=== PATIENT | female | born 1955 | race Caucasian/White ===

== ENCOUNTER 2017-02-10 13:22 | Inpatient (IN) ==
[2017-02-10 13:53] LABS: Basophils % 0.4 %; Eosinophils % 0.1 %; Hematocrit 39.8 % (35.3-44.9); Hemoglobin 14.7 g/dL (11.5-15.4); Immature Granulocytes % 1.5 % (0-4); Lymphocytes # 1.4 K/mcL (0.6-4.6); Lymphocytes % 13.1 %; Mean Corpuscular HGB Conc 36.9 g/dL (31.6-35.5); Mean Corpuscular Hemoglobin 28.5 pg (28.0-33.3); Mean Corpuscular Volume 77.3 fL (83.0-100.0); Mean Platelet Volume 8.7 fL (9.4-12.4); Monocytes % 10.1 %; Neutrophils # 7.7 K/mcL (1.6-8.9); Platelet Count 279 K/mcL (140-400); Red Blood Count 5.15 M/mcL (3.82-4.97); Red Cell Distribution Width 11.8 % (11.5-14.5); Segmented Neutrophils % 74.8 %
[2017-02-10 14:07] LABS: Albumin 3.7 g/dL (3.5-5.0); Albumin/Globulin Ratio 1.1 (1.1-2.2); Alkaline Phosphatase 69 Units/L (38-126); Aspartate Amino Transferase 7 Units/L (5-34); BUN/Creatinine Ratio 6 (6-26); Bilirubin,Direct 0.2 mg/dL (0.0-0.5); Bilirubin,Indirect 0.3 mg/dL (0.0-1.2); Bilirubin,Total 0.5 mg/dL (0.2-1.2); Calcium 9.5 mg/dL (8.6-10.8); Carbon Dioxide 28 mEq/L (19-29); Chloride 81 mEq/L (98-109); Globulin 3.5 g/dL (2.4-3.5); Glucose 117 mg/dL (70-99); Osmolality,Calculated 248 (280-300); Potassium 3.2 mEq/L (3.5-4.5); Total Protein 7.2 g/dL (6.0-8.3); eGFR For African Americans > 60 (> 60); eGFR For Non-African Americans > 60 (> 60)
[2017-02-10 14:10] LABS: Alanine Aminotransferase < 6 Units/L (0-55); Blood Urea Nitrogen 4 mg/dL (7-20); Lipase < 10 Units/L (8-78)
[2017-02-10 14:11] LABS: Sodium 120 mEq/L (136-145)
[2017-02-10 14:12] LABS: INR 1.1; Prothrombin Time 11.3 Seconds (9.4-12.1)
--- NOTE | 2017-02-10 14:14 | Emergency Department Note ---
Disposition Clinical Impression: Hyponatremia, Weakness, Failure to thrive in adult, Schizophrenia, paranoid, chronic with acute exacerbation, Bipolar disorder, curr episode mixed, severe, with psychotic features, Acute psychosis Disposition: Admitted As Inpatient Condition: Fair General Adult HPI - General Chief complaint: ED Weakness Stated complaint: Abdominal Pain/Out of psych meds Time Seen by Provider: 02/10/17 13:24 Source: patient, family, EMS Mode of arrival: EMS Limitations: age Nursing Notes Reviewed: Yes Vital Signs Reviewed: Yes - History of Present Illness HPI Narrative: 61-year-old female with a history of psychiatric illness who presents to the ER due to abdominal pain, headache, generalized weakness. Patient states that she has not felt well for 27-28 days. She states that she spell weak during that time. Is also noted in between that she has had headaches and abdominal pain. States that she has not wanted to eat. She reports intermittent chest pain as well. EMS was called and the patient was brought in for evaluation. She denies fevers. No dysuria or hematuria. Has had diarrhea in the past. No other complaints. Pt Subjective Complaint: Weakness, abdominal pain, headache Onset (ago): week(s) Location: head, abdomen Radiation: non-radiation Pain Severity: moderate Pain Scale: 6 Quality: aching Consistency: intermittent Improves with: nothing Worsens with: nothing Associated symptoms: Reports: chest pain, headaches. Denies: fever/chills Treatments Prior to Arrival: none - Related Data Home Medications Medication Instructions Recorded Confirmed Calcium Carbonate [Calcium] 500 mg PO BID 02/10/17 02/10/17 Ibuprofen [Motrin] 600 mg PO TID 02/10/17 02/10/17 Loxapine Succinate [Loxapine] 10 mg PO 0800,1200 02/10/17 02/10/17 OLANZapine [Zyprexa] 20 mg PO HS 02/10/17 02/10/17 Previous Rx's Medication Instructions Recorded Divalproex (12 HR) [Depakote (12 500 mg PO BID #60 tablet. 03/01/15 HR)] LORazepam [Ativan] 1 mg PO QID #60 tablet 03/01/15 Metoprolol [Lopressor] 50 mg PO BID #60 tablet 03/01/15 Allergies Allergy/AdvReac Type Severity Reaction Status Date / Time No Known Drug Allergies Allergy See Verified 02/22/15 11:16 Comments All systems ED: reviewed and negative except as stated. Constitutional: Denies: fever Cardiovascular: Reports: chest pain Respiratory: Denies: cough, dyspnea Gastrointestinal: Reports: abdominal pain, diarrhea. Denies: nausea, vomiting Genitourinary: Denies: dysuria Past Medical History - Past Medical History Attestation: Yes The following information was validated with the patient. Source: patient Medical history: Reports: CHF, COPD, hypertension Surgical history: Reports: colostomy Psychiatric history: Reports: previous psychiatric hospitalization - Social History Smoking Status: Current every day smoker Smokeless Tobacco Status: No Alcohol use: Reports: none Drug use: Reports: none Physical Exam - General Limitations: no limitations General appearance: alert, in no apparent distress - Head Head exam: atraumatic, normocephalic, normal inspection - Eye Eye exam: Present: normal appearance, EOMI - ENT ENT exam: normal exam - Neck Neck exam: Present: normal inspection, full ROM - Chest Chest inspection: Present: normal inspection, symmetric chest wall rise - Respiratory Respiratory exam: Present: normal lung sounds bilaterally - Cardiovascular Cardiovascular exam: Present: regular rate, normal rhythm, normal heart sounds - Abdominal Exam Abdominal exam: Present: soft, tenderness (Mild bibi-umbilical tenderness). Absent: distention, guarding, rigidity - Extremities Exam Extremities exam: Present: normal inspection, full ROM - Expanded Upper Extremity Exam Shoulder exam: Present: normal inspection, full ROM Arm exam: Present: normal inspection, full ROM Elbow exam: Present: normal inspection, full ROM Forearm/Wrist exam: Present: normal inspection, full ROM Hand exam: Present: normal inspection, full ROM Vascular exam: Normal: radial pulse - Expanded Lower Extremity Exam Hip/Pelvis exam: Present: normal inspection, full ROM Upper leg exam: Present: normal inspection, full ROM Knee exam: Present: normal inspection, full ROM Lower leg exam: Present: normal inspection, full ROM Ankle exam: Present: normal inspection, full ROM Foot/toe exam: Present: normal inspection, full ROM Neurovascular/Tendon exam: Absent: motor deficit, sensory deficit - Neurological Exam Neurological exam: Present: alert, other (GCS 15. Nonfocal neurologic exam. Moves all extremities equally.) - Psychiatric Psychiatric exam: Present: normal affect, normal mood - Skin Skin exam: Present: warm, dry, intact, normal color Course Course Narrative: Patient seen and examined. Vital signs reviewed. We will get a CT of the head as well as abdomen. Order EKG, chest x-ray as well as labs and urinalysis. Vital Signs Temperature 98.6 F 02/10/17 13:24 Pulse Rate 77 02/10/17 13:24 Respiratory Rate 18 02/10/17 13:24 Blood Pressure 149/105 02/10/17 13:24 O2 Sat by Pulse Oximetry 99 02/10/17 13:24 Temperature 97.3 F L 02/10/17 18:11 Pulse Rate 83 02/10/17 18:11 Respiratory Rate 17 02/10/17 18:11 Blood Pressure 128/70 02/10/17 18:11 O2 Sat by Pulse Oximetry 99 02/10/17 18:11 Oxygen Delivery Oxygen Delivery Room Air Medical Decision Making - MDM Narrative Medical decision making narrative: 61-year-old female presents to the ER due to weakness and decreased appetite abdominal pain and headaches. She has been out of her psychiatric medications as well. Her complaints all seem to be chronic. Her sodium here is 120 and family reports it has been low in the past. CT scan of the head and abdomen show no acute findings. Patient given a liter of normal saline here and placed on maintenance normal saline. Admitted to the hospitalist service for weakness , hyponatremia. - Medical Records Medical records reviewed: Yes I reviewed the patient's medical records. - Lab Data Lab results reviewed: Yes I reviewed the patient's lab results. Result diagrams: 02/10/17 13:45 02/10/17 20:34 Lab Results 02/10/17 02/10/17 02/10/17 Range/Units 13:45 13:45 13:45 WBC 10.3 (4.3-11.1) K/mcL RBC 5.15 H (3.82-4.97) M/mcL Hgb 14.7 (11.5-15.4) g/dL Hct 39.8 (35.3-44.9) % MCV 77.3 L (83.0-100.0) fL MCH 28.5 (28.0-33.3) pg MCHC 36.9 H (31.6-35.5) g/dL RDW 11.8 (11.5-14.5) % Plt Count 279 (140-400) K/mcL MPV 8.7 L (9.4-12.4) fL Immature Gran % 1.5 (0-4) % Seg Neutrophils % 74.8 % Lymphocytes % 13.1 % Monocytes % 10.1 % Eosinophils % 0.1 % Basophils % 0.4 % Neutrophils # 7.7 (1.6-8.9) K/mcL Lymphocytes # 1.4 (0.6-4.6) K/mcL Monocytes # 1.0 (0.0-1.3) K/mcL Eosinophils # 0.0 (0.0-0.6) K/mcL Basophils # 0.0 (0.0-0.2) K/mcL PT 11.3 (9.4-12.1) Seconds INR 1.1 Sodium (136-145) mEq/L Potassium (3.5-4.5) mEq/L Chloride (98-109) mEq/L Carbon Dioxide (19-29) mEq/L BUN (7-20) mg/dL Creatinine (0.57-1.11) mg/dL Est GFR ( Amer) (> 60) Est GFR (Non-Af Amer) (> 60) BUN/Creatinine Ratio (6-26) Glucose (70-99) mg/dL Calculated Osmolality (280-300) Calcium (8.6-10.8) mg/dL Total Bilirubin (0.2-1.2) mg/dL Direct Bilirubin (0.0-0.5) mg/dL Indirect Bilirubin (0.0-1.2) mg/dL AST (5-34) Units/L ALT (0-55) Units/L Alkaline Phosphatase (38-126) Units/L Troponin I 0.00 (0-0.03) ng/mL Serum Total Protein (6.0-8.3) g/dL Albumin (3.5-5.0) g/dL Globulin (2.4-3.5) g/dL Albumin/Globulin Ratio (1.1-2.2) Lipase (8-78) Units/L Urine Color (Yellow) Urine Clarity (Clear) Urine pH (5.0-8.0) pH Units Ur Specific Murphy (1.010-1.025) Urine Protein (Neg-Trace) mg/dL Urine Glucose (UA) (Normal) mg/dL Urine Ketones (Negative) mg/dL Urine Blood (Negative) Urine Nitrite (Negative) Urine Bilirubin (Negative) Urine Urobilinogen (Normal) mg/dL Ur Leukocyte Esterase (Negative) Urine Microscopic RBC (0-3) per hpf Urine Microscopic WBC (0-3) per hpf Amorphous Sediment (Few) Urine Bacteria (None-Few) per hpf Ur Culture Indicated? (NO) Urine Sodium mEq/L 02/10/17 02/10/17 02/10/17 Range/Units 13:45 14:53 19:09 WBC (4.3-11.1) K/mcL RBC (3.82-4.97) M/mcL Hgb (11.5-15.4) g/dL Hct (35.3-44.9) % MCV (83.0-100.0) fL MCH (28.0-33.3) pg MCHC (31.6-35.5) g/dL RDW (11.5-14.5) % Plt Count (140-400) K/mcL MPV (9.4-12.4) fL Immature Gran % (0-4) % Seg Neutrophils % % Lymphocytes % % Monocytes % % Eosinophils % % Basophils % % Neutrophils # (1.6-8.9) K/mcL Lymphocytes # (0.6-4.6) K/mcL Monocytes # (0.0-1.3) K/mcL Eosinophils # (0.0-0.6) K/mcL Basophils # (0.0-0.2) K/mcL PT (9.4-12.1) Seconds INR Sodium 120 L* (136-145) mEq/L Potassium 3.2 L (3.5-4.5) mEq/L Chloride 81 L (98-109) mEq/L Carbon Dioxide 28 (19-29) mEq/L BUN 4 L (7-20) mg/dL Creatinine 0.69 (0.57-1.11) mg/dL Est GFR ( Amer) > 60 (> 60) Est GFR (Non-Af Amer) > 60 (> 60) BUN/Creatinine Ratio 6 (6-26) Glucose 117 H (70-99) mg/dL Calculated Osmolality 248 L (280-300) Calcium 9.5 (8.6-10.8) mg/dL Total Bilirubin 0.5 (0.2-1.2) mg/dL Direct Bilirubin 0.2 (0.0-0.5) mg/dL Indirect Bilirubin 0.3 (0.0-1.2) mg/dL AST 7 (5-34) Units/L ALT < 6 (0-55) Units/L Alkaline Phosphatase 69 (38-126) Units/L Troponin I (0-0.03) ng/mL Serum Total Protein 7.2 (6.0-8.3) g/dL Albumin 3.7 (3.5-5.0) g/dL Globulin 3.5 (2.4-3.5) g/dL Albumin/Globulin Ratio 1.1 (1.1-2.2) Lipase < 10 (8-78) Units/L Urine Color Yellow (Yellow) Urine Clarity Clear (Clear) Urine pH 7.0 (5.0-8.0) pH Units Ur Specific Murphy < 1.005 L (1.010-1.025) Urine Protein Negative (Neg-Trace) mg/dL Urine Glucose (UA) Normal (Normal) mg/dL Urine Ketones Negative (Negative) mg/dL Urine Blood Trace H (Negative) Urine Nitrite Negative (Negative) Urine Bilirubin Negative (Negative) Urine Urobilinogen Normal (Normal) mg/dL Ur Leukocyte Esterase Negative (Negative) Urine Microscopic RBC 3-5 H (0-3) per hpf Urine Microscopic WBC 0-3 (0-3) per hpf Amorphous Sediment Few (Few) Urine Bacteria Few (None-Few) per hpf Ur Culture Indicated? NO (NO) Urine Sodium < 20.0 mEq/L - Radiology Data Radiology results reviewed: Yes I reviewed the patient's radiology results. Abdomen/Pelvis CT 02/10/17 13:30 IMPRESSION: Small amount of gas is seen within the bladder which is nonspecific and may be due to recent instrumentation versus cystitis. Cholelithiasis. D/ / Roselia Johnson MD / Roselia Johnson MD Interpreting Provider: Roselia Johnson MD Head CT 02/10/17 13:31 IMPRESSION: No acute intracranial abnormality. D/ / 02/10/2017 14:57:52 Thierno Witt MD / thien Interpreting Provider: Thierno Witt MD - EKG Data EKG #1 EKG attestation: Yes I reviewed and interpreted this EKG. EKG results narrative: EKG is severely limited due to patient compliance and motion artifact. Will to attempt to get a new EKG. Attestation Statement - Attestation Attestation: I examined this patient and my medical decision-making was reviewed with the Resident Physician, Dr. Bone. I agree with the documented findings, disposition and treatment plan as described except to the extent set forth below. Pt is a 61 yo wf who is brought to the ER by EMS after her states that he can no longer care for her due to her declining function and psychiatric illness. concerned because she is very paranoid and refuses to stay in the house, and insists on staying in the garage, and has not bathed in 2 months. Pt refusing to eat over past week, stating she is nauseated and has intermittent abd pain. states she will drink only soda, approx 12-14 per day. Pt with hx hyponatremia. Pt also has been out of her psych meds, and cannot get her to go to the doctor. Pt oriented to person only, and poor historian. VSS. I agree with pt's physical exam findings. Poorly groomed. IVF initiated, and labs sent. EKG shows artifact, but no acute findings. Labs show hyponatremia, initiated seizure precautions and continued IVF's. Labs wnl otherwise. CT imaging and XR wnl. Pt will be admitted medically, and with psych consult. technical services coordinator was consulted in the ED for possible ECF placement at time of DC, as can no longer care for her at home. D/W hospitalist, who accepted pt for admission.
[2017-02-10] MEDS ORDERED: 0.9 % Sodium Chloride 1,000 ML IVC ONE (14:17)
[2017-02-10 15:10] LABS: Bilirubin,Urine Negative (Negative); Blood,Urine Trace (Negative); Clarity,Urine Clear (Clear); Color,Urine Yellow (Yellow); Glucose,Urine (UA) Normal (Normal); Ketones,Urine Negative (Negative); Leukocyte Esterase,Urine Negative (Negative); Nitrite,Urine Negative (Negative); Protein,Urine Negative (Neg-Trace); Specific Gravity,Urine < 1.005 (1.010-1.025); Urobilinogen,Urine Normal (Normal)
[2017-02-10 15:24] LABS: WBC,Urine 0-3 per hpf (0-3)
[2017-02-10 15:25] LABS: Amorphous Sediment,Urine Few (Few); Bacteria,Urine Few per hpf (None-Few)
[2017-02-10] MEDS ORDERED: 0.9 % Sodium Chloride 1,000 ML ONE (16:26)
[2017-02-10] MEDS ORDERED: 0.9 % Sodium Chloride 1,000 ML IVC SCH (16:45)
--- NOTE | 2017-02-10 18:03 | Event Note ---
Date of Encounter: 02/10/17 Time of Encounter: 18:00 Patient and examined with nurse practitioner. Patient presents with hyponatremia. will check urine sodium and osmolarity. follows sodium Q4 hours. she already received 1 L of normal saline in the emergency room, will hold off further fluid resuscitation till we check sodium level. PT OT social work msw to see
[2017-02-10] MEDS ORDERED: Naloxone 0.4 MG/ML INJ IVP PRN (19:04)
--- NOTE | 2017-02-10 19:29 | Internal Med History&Physical ---
Date of Encounter: 02/10/17 Time of Encounter: 19:21 Assessment and Plan (1) Hyponatremia Current visit: Yes Status: Acute Incidental finding of hyponatremia. Patient on Zyprexa and Depakote, however, these are not likely contributory to her hyponatremia as she has not taken them for 1 month. Her urine is very dilute but she reports only passing a small volume for the last week. She was given a 1L of normal saline in the ED. Will hold any additional IV fluid at this time until we obtain a serum sodium. Plan is to correct sodium at a rate of 0.5 meq per hour or a rate of no greater than 10meq per day. Cycle sodium Q4hrs, Obtain urine sodium, urine osmolality Q4hr neuro checks Strict I&O's Maintain NPO status for now. (2) Schizophrenia, paranoid, chronic with acute exacerbation Current visit: Yes Status: Chronic Patient has not been taking psych medications for the last month. No longer see 's her mental health care provider. Will resume Depakote and Zyprexa. PT/OT SS consult to assist with transitions of care. Will need resources for new mental health provider. (3) Acute psychosis Current visit: Yes Status: Acute Patient has long-term h/o chronic schizophrenia. See assessment and plan above (4) Weakness Current visit: Yes Status: Acute Reports generalized weakness and malaise likely caused by the hyponatremia. I suspect it will improve with sodium correction. Will consult PT/OT for further evaluation. (5) DVT prophylaxis Current visit: Yes Status: Acute Lovenox 40mg SC daily Internal Medicine - H&P: HPI Chief complaint: abdominal pain, headache and generalized weakness Admitted From: Home Plans for Post Hospital Care: Home History of present illness: Ms. Vazquez is a 61 year old female with a PMH of CHF, COPD, HTN, and paranoid schizophrenia who presents to [facility] today with abdominal pain, headache and generalized weakness. She has an extensive psych history and reports being out of medication for the last month. Her reports that she has not seen her provider since August because she refused to go back d/t history of agoraphobia. She states abdominal pain is intermittent and currently reports 2/ 10. Denies fevers,dysuria, hematuria, or nausea and vomiting. Workup in ED reveals hyponatremia with a sodium of 120. at bedside and reports that she drinks an excessive amount of Pepsi, drinking roughly a 12 pack daily. She is being admitted for further workup and correction of hyponatremia. Past Med Surg Social Fam HX - Past Medical History Medical history: CHF, COPD, hypertension Psychiatric history: previous psychiatric hospitalization - Past Surgical History Surgical History: colostomy - Social History Smoking Status: Current every day smoker Smokeless Tobacco Status: No Alcohol use: none Drug use: none - Family History Mother Hx Family Endocrine Disorder: Yes (DM) Father Hx Family Neurologic Disorders: Yes (CVA) Internal Medicine - H&P: Meds Divalproex (12 HR) [Depakote (12 HR)] 500 mg PO BID #60 tablet.dr 03/01/15 [Rx] LORazepam [Ativan] 1 mg PO QID #60 tablet 03/01/15 [Rx] Metoprolol [Lopressor] 50 mg PO BID #60 tablet 03/01/15 [Rx] Calcium Carbonate [Calcium] 500 mg PO BID 02/10/17 [History] Ibuprofen [Motrin] 600 mg PO TID 02/10/17 [History] Loxapine Succinate [Loxapine] 10 mg PO 0800,1200 02/10/17 [History] OLANZapine [Zyprexa] 20 mg PO HS 02/10/17 [History] 3 Allergy/AdvReac Type Severity Reaction Status Date / Time No Known Drug Allergies Allergy See Verified 02/22/15 11:16 Comments All Systems PM: A 10-system review of systems was performed and is negative for pertinent findings except as documented above in the HPI. - Constitutional Constitutional: weakness, no chills, no fever(s), no night sweats - EENT Eyes: no blurry vision, no change in vision, no discharge, no loss of vision, no pain, no photophobia, no spots in vision Ears: no ear discharge, no ear pain, no tinnitus Nose, mouth and throat: no dysphagia, no nasal discharge, no neck pain, no sore throat - Cardiovascular Cardiovascular ROS IM: no chest pain, no diaphoresis, no dyspnea, no edema, no lightheadedness, no palpitations, no syncope - Respiratory Respiratory: no cough, no dyspnea, no wheezing, no excessive phlegm production - Gastrointestinal Gastrointestinal: abdominal pain (intermittent), no diarrhea, no hematemesis, no hematochezia, no melena, no nausea, no vomiting - Genitourinary Genitourinary: no change in urinary stream, no difficulty urinating, no dysuria , no flank pain, no hematuria, no urinary frequency, no urinary hesitancy, no urinary urgency Additional comments: Denies increase in urine volume - Musculoskeletal Musculoskeletal ROS IM: no numbness, no tingling - Integumentary Integumentary IM: no rash, no unusual bruising - Neurological Neurological ROS: headache(s), weakness, no confusion, no convulsions, no focal weakness, no numbness, no tingling, no tremor(s) - Hematologic/Lymphatic Hematologic/Lymphatic: no easy bruising - Constitutional Vitals: Temp Pulse Resp BP Pulse Ox 97.3 F L 83 17 128/70 99 02/10/17 18:11 02/10/17 18:11 02/10/17 18:11 02/10/17 18:11 02/10/17 18:11 General appearance: Present: cooperative, A&O X 2, mild distress - Head Head exam: Present: atraumatic, normocephalic - Eye Eye exam: Present: PERRL, conjuntiva pink, sclera anicteric Pupils: Present: PERRL - Neck Neck exam general surgery: Present: supple, trachea midline. Absent: lymphadenopathy - Respiratory Respiratory exam: Present: decreased breath sounds, CTAB. Absent: accessory muscle use, rales, rhonchi, wheezes - Cardiovascular Cardiovascular exam: Present: RRR, +S1, +S2. Absent: diastolic murmur, gallop, rubs, systolic murmur - GI/Abdominal GI/Abdominal exam: Present: normal bowel sounds, soft, tenderness (Mild diffuse tenderness to palpation), no peritoneal signs. Absent: distended, guarding, hepatomegaly, rebound - Extremities Exam Extremities exam: Present: warm, radial pulses palpable and symmetrical. Absent : calf tenderness, cyanotic, pedal edema - Neurological Exam Neurological exam: Present: CN II-XII intact, oriented X3, no focal deficits. Absent: pronater drift, facial droop, speech deficit - Psychiatric Psychiatric exam: Present: anxious - Expanded Psychiatric Exam Focused psych exam: Present: flight of ideas, restlessness Internal Med - H&P Results - Labs CBC & Chem 7: 02/10/17 13:45 02/10/17 13:45 - Diagnostic Studies CT scan - head Status: image reviewed by me Additional comments: no acute intracranial abnormalities
[2017-02-10] MEDS: Divalproex (12 HR) 250 MG TABLET PO SCH (20:19)
[2017-02-10] MEDS: OLANZapine 10 MG TAB.RAPDIS PO SCH (20:20)
[2017-02-10] MEDS: *HR* LORazepam 1 MG TABLET PO SCH (20:20)
[2017-02-10] MEDS ORDERED: Ibuprofen 600 MG TABLET PO SCH (21:00)
--- NOTE | 2017-02-10 21:06 | Event Note ---
Date of Encounter: 02/10/17 Time of Encounter: 21:03 Patient admitted for hyponatremia. Received 1 L fluid bolus emergency department was then placed on a 125 mL per hour drip of normal saline and sent to the floor. Normal saline was discontinued, serum sodium was ordered. She will sodium result of 120 follow-up sodium of 128. This is a rapid increase of serum sodium are some concern for neurological demyelination. Consultation to nephrology for assistance with further management Dr. Reno to see patient in morning. Advised to continue to hold normal saline.
--- NOTE | 2017-02-10 21:59 | Electrocardiograph Report ---
[facility] Test Date: 2017-02-10 Pat Name: Amita Vazquez Department: 103 Room: 2A13 Gender: F Metal Spinner: AM : 1955 Requested By: Mac Bone Order Number: [id number] Reading MD: Primo Monet MD Measurements Intervals [place] Rate: 75 P: SD: 0 QRS: 35 QRSD: 116 T: 0 QT: 424 QTc: 452 Interpretive Statements SUPRAVENTRICULAR RHYTHM POOR BASELINE NONSPECIFIC T-WAVE ABNORMALITY Electronically Signed On 02-10-2017 21:57:42 EDT by Primo Monet MD
[2017-02-11 05:17] LABS: Basophils % 0.5 %; Eosinophils % 0.2 %; Hematocrit 35.3 % (35.3-44.9); Immature Granulocytes % 1.7 % (0-4); Lymphocytes % 32.8 %; Mean Corpuscular HGB Conc 35.7 g/dL (31.6-35.5); Mean Corpuscular Hemoglobin 28.7 pg (28.0-33.3); Mean Corpuscular Volume 80.4 fL (83.0-100.0); Mean Platelet Volume 8.8 fL (9.4-12.4); Monocytes # 0.8 K/mcL (0.0-1.3); Monocytes % 12.9 %; Neutrophils # 3.1 K/mcL (1.6-8.9); Platelet Count 203 K/mcL (140-400); Red Blood Count 4.39 M/mcL (3.82-4.97); Red Cell Distribution Width 11.6 % (11.5-14.5); Segmented Neutrophils % 51.9 %
[2017-02-11 05:18] LABS: Hemoglobin 12.6 g/dL (11.5-15.4)
[2017-02-11] MEDS: *HR* Enoxaparin 40 MG/0.4 ML SYRINGE SQ SCH (06:11)
[2017-02-11] MEDS ORDERED: (Loxapine Succinate [Loxapine] 10 MG) PO SCH (08:00)
[2017-02-11] MEDS: Ibuprofen 600 MG TABLET PO PRN (08:29)
[2017-02-11] MEDS: *HR* LORazepam 1 MG TABLET PO SCH ×4 (08:29→19:50)
[2017-02-11] MEDS: Divalproex (12 HR) 250 MG TABLET PO SCH ×2 (08:29→19:49)
[2017-02-11] MEDS: Loxapine Succinate [Loxapine] 10 MG PO SCH ×2 (08:31→12:25)
--- NOTE | 2017-02-11 09:51 | Nephrology Consult Note ---
Date of Encounter: 02/11/17 Time of Encounter: 09:10 Assessment and Plan (1) Hyponatremia Current Visit: Yes Status: Acute Hyponatremia unclear etiology. Most likely related to poor oral intake. Prior low sodium levels lead to chronicity. Depakote can contribute but patient denies recent intake. Appropriately dilute urine. Low potassium could be contributing, needs repeat labs and replacement. Will repeat urine osmalality and get cortisol level. Continue to monitor. Agree at this point no further IV replacement of sodium. Will continue to follow History of Present Illness - Reason for Consult hyponatremia - History of Present Illness Ms. Vazquez is a 61 year old female who presented to the ER with headache, abdominal pain and generalized weakness. PMH-CHF, COPD, hypertension colostomy, previous psychiatric hospitalization. On presenting sodium 120, K 3.2, BUN 4, creat 0.69, TSH 1.3, uric acid 4.4, urine osmal 97, serum osmal 248. She was started on IV 0.9 NS which has subsequently been stopped when repeat sodium 128. At time of consult Ms. 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 Patient states ran out of all home medications approximately one month ago and has not felt well since. She states she has had a poor appetite, that her medications make her want to eat. She denies vomiting. She denies diarrhea. She denies excess intake of fluids, however prior statement states ingests 12 pack pepsi daily. She denies diuretic use. She admits mild LE swelling which at present time is trace pitting. Prior sodium levels 138-139 in 2013, 132-134 in 2014. Prior potassium 3.9-4.1 in 2013-. Past Med Surg Social Fam HX - Past Medical History Medical history: CHF, COPD, hypertension Psychiatric history: previous psychiatric hospitalization - Past Surgical History Surgical History: colostomy - Social History Smoking Status: Current every day smoker Smokeless Tobacco Status: No Alcohol use: none Drug use: none - Family History Mother Hx Family Endocrine Disorder: Yes (DM) Father Hx Family Neurologic Disorders: Yes (CVA) Medications and Allergies Divalproex (12 HR) [Depakote (12 HR)] 500 mg PO BID #60 tablet. 03/01/15 [Rx] LORazepam [Ativan] 1 mg PO QID #60 tablet 10/24/15 [Rx] Metoprolol [Lopressor] 50 mg PO BID #60 tablet 03/01/15 [Rx] Calcium Carbonate [Calcium] 500 mg PO BID 02/10/17 [History] Ibuprofen [Motrin] 600 mg PO TID 02/10/17 [History] Loxapine Succinate [Loxapine] 10 mg PO 0800,1200 02/10/17 [History] OLANZapine [Zyprexa] 20 mg PO HS 02/10/17 [History] 3 Allergy/AdvReac Type Severity Reaction Status Date / Time No Known Drug Allergies Allergy See Verified 02/22/15 11:16 Comments Review of Systems All Systems: reviewed and no additional remarkable complaints except as stated Exam - Vital Signs Vital signs: Initial Vital Signs Temp Pulse Resp BP Pulse Ox 98.6 F 77 18 149/105 99 02/10/17 13:24 02/10/17 13:24 02/10/17 13:24 02/10/17 13:24 02/10/17 13:24 Vital Signs - Last 8 Hours Temp Pulse Resp BP Pulse Ox 02/11/17 08:49 98 02/11/17 07:15 97.8 F 57 17 108/75 98 02/11/17 03:40 97.7 F 55 16 94/62 99 Intake and Output 02/10/17 02/11/17 02/11/17 23:59 07:59 15:59 Output Total 350 / 350 150 / 150 Balance -350 / 650 -150 / -150 Output: Urine 350 / 350 Catheter 150 / 150 Other: # Voids 1 Weight 71 kg Blood Glucose* 102 Patient Weight 02/11/17 23:59 Weight 71 kg - General Appearance General appearance: well-developed, well-nourished, appears started age EENT: mucous membranes moist Neck: no JVD Respiratory: clear Cardiology: edema, regular rate, regular rhythm Additional Comments: trace pitting LE Gastrointestinal: normoactive bowel sounds, no tenderness Integumentary: warm and dry Psychiatric: mood/affect appropriate, cooperative Results - Lab Results 02/11/17 04:49 02/10/17 20:34 Most recent lab results Calcium 9.5 mg/dL (8.6-10.8) 02/10/17 13:45 Urine Sodium < 20.0 mEq/L 02/11/17 00:30 Consult Discharge Plan - Plan Referrals: NONE,PCP [Primary Care Provider] -
[2017-02-11 11:20] LABS: Alanine Aminotransferase < 6 Units/L (0-55); Albumin 3.1 g/dL (3.5-5.0); Alkaline Phosphatase 60 Units/L (38-126); Aspartate Amino Transferase 8 Units/L (5-34); BUN/Creatinine Ratio 6 (6-26); Bilirubin,Total 0.3 mg/dL (0.2-1.2); Blood Urea Nitrogen 4 mg/dL (7-20); Calcium 8.8 mg/dL (8.6-10.8); Carbon Dioxide 31 mEq/L (19-29); Chloride 89 mEq/L (98-109); Glucose 98 mg/dL (70-99); Osmolality,Calculated 259 (280-300); Potassium 2.8 mEq/L (3.5-4.5); Sodium 126 mEq/L (136-145); Total Protein 6.1 g/dL (6.0-8.3); eGFR For African Americans > 60 (> 60); eGFR For Non-African Americans > 60 (> 60)
[2017-02-11 12:11] LABS: BUN/Creatinine Ratio 6 (6-26); Blood Urea Nitrogen 4 mg/dL (7-20); Carbon Dioxide 25 mEq/L (19-29); Chloride 91 mEq/L (98-109); Glucose 86 mg/dL (70-99); Osmolality,Calculated 262 (280-300); Potassium 3.2 mEq/L (3.5-4.5); Sodium 128 mEq/L (136-145); eGFR For African Americans > 60 (> 60); eGFR For Non-African Americans > 60 (> 60)
--- NOTE | 2017-02-11 12:23 | Internal Med Progress Note ---
Date of Encounter: 02/11/17 Time of Encounter: 12:20 - Assessment and plan (1) Hyponatremia Current Visit: Yes Status: Acute Assessment and plan: Acute metabolic encephalopathy secondary to Severe hyponatremia likely hypovolemic due to poor oral intake, has history of psychogenic polydipsia in the past but is currently dehydrated as she has not been eating or drinking for the past few days Start half normal saline with 10 medical and so potassium as the patient increase her sodium levels from 120 to 128 too quickly with normal saline alone Resume diet, check sodium every 4 hours, may change fluids depending on increase. Do not increase more than 0.5 mEq per hour or 8 mEq in 24 hours Risks explained (2) Dehydration Current Visit: Yes Status: Acute Assessment and plan: IV fluids (3) Chronic schizophrenia Current Visit: No Status: Acute Assessment and plan: Resume psych meds including valproic acid, patient has not taken it for a month and is very unlikely that it contributed to her hyponatremia (4) Bipolar disorder, curr episode mixed, severe, with psychotic features Current Visit: Yes Status: Acute (5) Weakness Current Visit: Yes Status: Acute (6) Agoraphobia Current Visit: Yes Status: Acute Assessment and plan: May continue Ativan as needed - Subjective Interval history: The patient appears dehydrated, is very thirsty, denies any abdominal pain, confused and disoriented in time, denies chest pain or shortness of breath, no diarrhea - Constitutional Vitals: Temp Pulse Resp BP Pulse Ox 98.0 F 54 17 110/72 99 02/11/17 11:12 02/11/17 11:12 02/11/17 11:12 02/11/17 11:12 02/11/17 11:12 General appearance: Present: cooperative, A&O X 2, mild distress Exam: Dry mucosa - Head Head exam: Present: atraumatic, normocephalic - Eye Eye exam: Present: PERRL, conjuntiva pink, sclera anicteric Pupils: Present: PERRL - Neck Neck exam general surgery: Present: supple, trachea midline. Absent: lymphadenopathy - Respiratory Respiratory exam: Present: decreased breath sounds, CTAB. Absent: accessory muscle use, rales, rhonchi, wheezes - Cardiovascular Cardiovascular exam: Present: RRR, +S1, +S2. Absent: diastolic murmur, gallop, rubs, systolic murmur - GI/Abdominal GI/Abdominal exam: Present: normal bowel sounds, soft, no peritoneal signs. Absent: distended, tenderness - Extremities Exam Extremities exam: Present: warm, radial pulses palpable and symmetrical. Absent : calf tenderness, cyanotic, pedal edema - Neurological Exam Neurological exam: Present: CN II-XII intact, no focal deficits. Absent: oriented X3, pronater drift, facial droop, speech deficit - Skin Skin exam: Present: dry, intact Additional comments: Pino catheter during place Internal Medicine: Result - Labs CBC & Chem 7: 02/11/17 04:49 02/11/17 10:56 Labs: Short CBC 02/11/17 Range/Units 04:49 WBC 6.0 (4.3-11.1) K/mcL Hgb 12.6 D (11.5-15.4) g/dL Hct 35.3 (35.3-44.9) % Plt Count 203 (140-400) K/mcL Neutrophils # 3.1 (1.6-8.9) K/mcL BMP 02/10/17 02/11/17 02/11/17 20:34 06:05 10:56 Sodium 128 L D 128 L 126 L Potassium 3.2 L 2.8 L Chloride 91 L 89 L Carbon Dioxide 25 31 H BUN 4 L 4 L Creatinine 0.72 0.67 Glucose 86 98 Calcium 9.0 8.8 Liver Function 02/11/17 Range/Units 10:56 Total Bilirubin 0.3 (0.2-1.2) mg/dL AST 8 (5-34) Units/L ALT < 6 (0-55) Units/L Alkaline Phosphatase 60 (38-126) Units/L Albumin 3.1 L (3.5-5.0) g/dL - ABG Interpretation ABG results: PT/INR, D-dimer PT 11.3 Seconds (9.4-12.1) 02/10/17 13:45 Consult Discharge Plan - Plan Referrals: NONE,PCP [Primary Care Provider] -
[2017-02-11] MEDS: D5% in 0.45% NACL w KCl 10 MEQ/1,000 ML MLS IVC SCH (13:29)
[2017-02-11] MEDS: OLANZapine 10 MG TAB.RAPDIS PO SCH (19:49)
[2017-02-12 00:58] LABS: Hematocrit 32.8 % (35.3-44.9); Hemoglobin 11.8 g/dL (11.5-15.4); Mean Corpuscular Hemoglobin 28.9 pg (28.0-33.3); Mean Corpuscular Volume 80.2 fL (83.0-100.0); Mean Platelet Volume 9.1 fL (9.4-12.4); Platelet Count 190 K/mcL (140-400); Red Blood Count 4.09 M/mcL (3.82-4.97); Red Cell Distribution Width 11.8 % (11.5-14.5)
[2017-02-12 01:15] LABS: BUN/Creatinine Ratio 19 (6-26); Blood Urea Nitrogen 13 mg/dL (7-20); Calcium 8.1 mg/dL (8.6-10.8); Carbon Dioxide 27 mEq/L (19-29); Chloride 90 mEq/L (98-109); Glucose 97 mg/dL (70-99); Osmolality,Calculated 258 (280-300); Potassium 3.4 mEq/L (3.5-4.5); Sodium 124 mEq/L (136-145); eGFR For African Americans > 60 (> 60); eGFR For Non-African Americans > 60 (> 60)
[2017-02-12] MEDS: D5% in 0.45% NACL w KCl 10 MEQ/1,000 ML MLS IVC SCH (03:39)
[2017-02-12] MEDS: *HR* Enoxaparin 40 MG/0.4 ML SYRINGE SQ SCH (05:35)
--- NOTE | 2017-02-12 08:51 | Nephrology Progress Note ---
Date of Encounter: 02/12/17 Time of Encounter: 08:35 - Assessment and Plan (1) Hyponatremia Current Visit: Yes Status: Acute Repeat urine osum 412 (97). Euvolemic hyponatremia/SIADH issue, cortisol level normal. Prior low sodium levels lead to chronicity. Depakote can contribute but patient denies recent intake. Will replete K+, restrict fluids 1500 cc/day. Statrt sodium chloride tabs PO. Continue to monitor. Will continue to follow Subjective Interval history: Alert, confused conversation. Nursing at bedside starting IV. Objective - Vital Signs Vital signs: Vital Signs Temp Pulse Resp BP Pulse Ox 02/12/17 07:00 97.9 F 89 16 115/82 99 02/12/17 03:46 97.4 F L 56 18 138/84 96 02/12/17 00:50 97.7 F 54 16 88/61 97 02/11/17 18:05 98.0 F 70 17 108/66 92 02/11/17 15:45 97.7 F 67 17 104/68 99 02/11/17 11:12 98.0 F 54 17 110/72 99 02/11/17 08:49 98 Intake and Output 02/11/17 02/12/17 02/12/17 23:59 07:59 15:59 Intake Total 180 / 180 1120 / 1120 140 / 140 Output Total 3500 / 3500 Balance 180 / 180 -2380 / -2380 140 / 140 Intake: IV Fluids 1000 / 1000 KCl 10mEq in D5-0.45 NaCl 10 1000 / 1000 meq In 1,000 ml @ 75 mls/hr IVC .[id number] [facility] Rx#:[id number] Oral 180 / 180 120 / 120 140 / 140 Output: Catheter 3500 / 3500 Other: Meal Dinner Breakfast Percent of Meal Consumed 55% 100% Weight 72.4 kg Patient Weight 02/12/17 23:59 Weight 72.4 kg - General Appearance General appearance: Present: well-developed, well-nourished, appears started age EENT: Present: mucous membranes moist Neck: Present: no JVD Respiratory: Present: clear Cardiology: Present: edema, regular rate, regular rhythm Additional Comments: trace pitting LE Gastrointestinal: Present: normoactive bowel sounds, no tenderness Integumentary: Present: warm and dry Neurologic: Present: confused Psychiatric: Present: cooperative - Lab 02/12/17 00:43 02/12/17 00:43 Most recent lab results Calcium 8.1 mg/dL (8.6-10.8) L 02/12/17 00:43 Urine Sodium < 20.0 mEq/L 02/11/17 07:43 Consult Discharge Plan - Plan Referrals: NONE,PCP [Primary Care Provider] -
[2017-02-12] MEDS: Divalproex (12 HR) 250 MG TABLET PO SCH ×2 (09:00→20:09)
[2017-02-12] MEDS: *HR* LORazepam 1 MG TABLET PO SCH ×4 (09:01→20:09)
[2017-02-12] MEDS: Loxapine Succinate [Loxapine] 10 MG PO SCH ×2 (09:04→13:40)
[2017-02-12] MEDS: Ibuprofen 600 MG TABLET PO PRN ×2 (09:08→22:29)
[2017-02-12] MEDS ORDERED: *HR* LORazepam 2 MG/ML VIAL IVP PRN (09:59)
[2017-02-12] MEDS ORDERED: *HR* LORazepam 2 MG/ML VIAL ONE ×2 (10:03→11:11)
[2017-02-12] MEDS ORDERED: *HR* LORazepam Oral Conc 2 MG/ML SL PRN (10:15)
[2017-02-12] MEDS: *HR* LORazepam 2 MG/ML VIAL IVP PRN ×2 (11:15→11:44)
--- NOTE | 2017-02-12 12:00 | Internal Med Progress Note ---
Date of Encounter: 02/12/17 Time of Encounter: 11:57 - Assessment and plan (1) Hyponatremia Current Visit: Yes Status: Acute Assessment and plan: Acute metabolic encephalopathy secondary to Severe hyponatremia likely hypovolemic due to poor oral intake, has history of psychogenic polydipsia in the past but is currently dehydrated as she has not been eating or drinking for the past few days Increased her sodium levels from 120 to 128 too quickly with normal saline alone , was switched to1/2 ND and D5, Na dropped to 124 May resume NS, sodium tabs Monitor sodium. Do not increase Na more than 0.5 mEq per hour or 8 mEq in 24 hours Risks explained (2) Dehydration Current Visit: Yes Status: Acute Assessment and plan: IV fluids (3) Chronic schizophrenia Current Visit: No Status: Acute Assessment and plan: Resume psych meds including valproic acid, patient has not taken it for a month and is very unlikely that it contributed to her hyponatremia ativan prn (4) Bipolar disorder, curr episode mixed, severe, with psychotic features Current Visit: Yes Status: Acute (5) Weakness Current Visit: Yes Status: Acute (6) Agoraphobia Current Visit: Yes Status: Acute Assessment and plan: May continue Ativan as needed - Subjective Interval history: Less dehydrated, still thirsty, denies any abdominal pain, confused and disoriented in time, denies chest pain or shortness of breath, no diarrhea. Confused, agitated and upset about not being discharged - Constitutional Vitals: Temp Pulse Resp BP Pulse Ox 98.5 F 66 16 130/82 98 02/12/17 10:45 02/12/17 10:45 02/12/17 10:45 02/12/17 10:45 02/12/17 10:45 General appearance: Present: cooperative, A&O X 2, mild distress Exam: Dry mucosa - Head Head exam: Present: atraumatic, normocephalic - Eye Eye exam: Present: PERRL, conjuntiva pink, sclera anicteric Pupils: Present: PERRL - Neck Neck exam general surgery: Present: supple, trachea midline. Absent: lymphadenopathy - Respiratory Respiratory exam: Present: CTAB. Absent: accessory muscle use, rales, rhonchi, wheezes - Cardiovascular Cardiovascular exam: Present: RRR, +S1, +S2. Absent: diastolic murmur, gallop, rubs, systolic murmur - GI/Abdominal GI/Abdominal exam: Present: normal bowel sounds, soft, no peritoneal signs. Absent: distended, tenderness - Extremities Exam Extremities exam: Present: warm, radial pulses palpable and symmetrical. Absent : calf tenderness, cyanotic, pedal edema - Neurological Exam Neurological exam: Present: CN II-XII intact, oriented X3, no focal deficits. Absent: pronater drift, facial droop, speech deficit - Skin Skin exam: Present: dry, intact Internal Medicine: Result - Labs CBC & Chem 7: 02/12/17 00:43 02/12/17 00:43 Labs: Short CBC 02/12/17 Range/Units 00:43 WBC 5.9 (4.3-11.1) K/mcL Hgb 11.8 (11.5-15.4) g/dL Hct 32.8 L (35.3-44.9) % Plt Count 190 (140-400) K/mcL BMP 02/11/17 02/11/17 02/11/17 06:05 16:18 21:23 Sodium 128 L 126 L 125 L Potassium 3.2 L Chloride 91 L Carbon Dioxide 25 BUN 4 L Creatinine 0.72 Glucose 86 Calcium 9.0 02/12/17 00:43 Sodium 124 L Potassium 3.4 L Chloride 90 L Carbon Dioxide 27 BUN 13 Creatinine 0.70 Glucose 97 Calcium 8.1 L - ABG Interpretation ABG results: PT/INR, D-dimer PT 11.3 Seconds (9.4-12.1) 02/10/17 13:45 Consult Discharge Plan - Plan Referrals: NONE,PCP [Primary Care Provider] - (Patient will follow up with ECF PCP)
[2017-02-12] MEDS ORDERED: Haloperidol Lactate 5 MG/ML VIAL IM PRN (13:29)
[2017-02-12] MEDS: Nystatin POWDER 30 GM BOTTLE TP SCH ×2 (14:46→20:09)
[2017-02-12] MEDS: OLANZapine 10 MG TAB.RAPDIS PO SCH (20:09)
[2017-02-13 02:33] LABS: Hematocrit 30.9 % (35.3-44.9); Hemoglobin 10.7 g/dL (11.5-15.4); Mean Corpuscular HGB Conc 34.6 g/dL (31.6-35.5); Mean Corpuscular Hemoglobin 29.6 pg (28.0-33.3); Mean Corpuscular Volume 85.4 fL (83.0-100.0); Mean Platelet Volume 9.2 fL (9.4-12.4); Platelet Count 177 K/mcL (140-400); Red Blood Count 3.62 M/mcL (3.82-4.97); Red Cell Distribution Width 12.1 % (11.5-14.5)
[2017-02-13 02:47] LABS: BUN/Creatinine Ratio 21 (6-26); Blood Urea Nitrogen 15 mg/dL (7-20); Calcium 7.8 mg/dL (8.6-10.8); Carbon Dioxide 25 mEq/L (19-29); Chloride 100 mEq/L (98-109); Glucose 97 mg/dL (70-99); Osmolality,Calculated 273 (280-300); Potassium 4.3 mEq/L (3.5-4.5); Sodium 131 mEq/L (136-145); eGFR For African Americans > 60 (> 60); eGFR For Non-African Americans > 60 (> 60)
[2017-02-13] MEDS: *HR* Enoxaparin 40 MG/0.4 ML SYRINGE SQ SCH ×2 (05:12→05:16)
--- NOTE | 2017-02-13 08:07 | Nephrology Progress Note ---
Date of Encounter: 02/13/17 Time of Encounter: 08:00 - Assessment and Plan (1) Hyponatremia Current Visit: Yes Status: Acute Repeat urine osum 412 (97). Euvolemic hyponatremia/SIADH issue, cortisol level normal. Prior low sodium levels lead to chronicity. Depakote can contribute but patient denies recent intake. K+ 4.3, restrict fluids 1500 cc/day. Started on sodium chloride tabs. Na 131. Will stop IV fluids. Continue to monitor. Will continue to follow Subjective Interval history: Slleping, easily aroused. States feeling better, wants to go home. Objective - Vital Signs Vital signs: Vital Signs Temp Pulse Resp BP Pulse Ox 02/13/17 07:00 97.9 F 55 16 119/81 99 02/13/17 03:42 97.8 F 59 16 101/72 96 02/12/17 23:02 98.4 F 67 17 114/75 97 02/12/17 18:55 98.8 F 72 17 95/65 96 02/12/17 10:45 98.5 F 66 16 130/82 98 Intake and Output 02/12/17 02/13/17 02/13/17 23:59 07:59 15:59 Intake Total 100 / 100 Output Total 1100 / 1100 400 / 400 Balance -1000 / -1000 -400 / -400 Intake: IV Fluids 100 / 100 Potassium Chloride 10 mEq/100mL 100 / 100 10 meq In 100 ml @ 100 mls/hr IVPB Q1H [facility] Rx#:[id number] Output: Urine 550 / 550 Catheter 550 / 550 400 / 400 Other: Stool Size Large Stool Consistency soft Stool Characteristics Normal for Patient Stool Color Brown Weight 75 kg Patient Weight 02/13/17 23:59 Weight 75 kg - General Appearance General appearance: Present: well-developed, well-nourished, appears started age EENT: Present: mucous membranes moist Neck: Present: no JVD Respiratory: Present: clear Cardiology: Present: edema, regular rate, regular rhythm Additional Comments: non pitting LE Gastrointestinal: Present: normoactive bowel sounds, no tenderness Integumentary: Present: warm and dry Psychiatric: Present: mood/affect appropriate, cooperative - Lab 02/13/17 02:12 02/13/17 02:12 Most recent lab results Calcium 7.8 mg/dL (8.6-10.8) L 02/13/17 02:12 Urine Sodium < 20.0 mEq/L 02/11/17 07:43 Consult Discharge Plan - Plan Referrals: NONE,PCP [Primary Care Provider] - (Patient will follow up with ECF PCP)
[2017-02-13] MEDS: Divalproex (12 HR) 250 MG TABLET PO SCH ×2 (08:25→19:55)
[2017-02-13] MEDS: *HR* LORazepam 1 MG TABLET PO SCH ×4 (08:26→19:55)
[2017-02-13] MEDS: Loxapine Succinate [Loxapine] 10 MG PO SCH ×2 (08:28→11:53)
[2017-02-13] MEDS: Ibuprofen 600 MG TABLET PO PRN (08:31)
[2017-02-13] MEDS: Nystatin POWDER 30 GM BOTTLE TP SCH ×2 (08:32→19:58)
[2017-02-13] MEDS: *HR* LORazepam 2 MG/ML VIAL IVP PRN (10:58)
--- NOTE | 2017-02-13 13:02 | Internal Med Progress Note ---
Date of Encounter: 02/13/17 Time of Encounter: 13:00 - Assessment and plan (1) Hyponatremia Current Visit: Yes Status: Acute Assessment and plan: Acute metabolic encephalopathy secondary to Severe hyponatremia likely hypovolemic due to poor oral intake, has history of psychogenic polydipsia in the past but is currently dehydrated as she has not been eating or drinking before being admitted The first day of her admission her sodium levels increased from 120 to 128 too quickly with normal saline alone, was switched to1/2 ND and D5, Na dropped to 124. Salt tablets were started. Discontinue NS, continue sodium tabs Monitor sodium. Risks explained (2) Dehydration Current Visit: Yes Status: Acute Assessment and plan: Resolved, discontinue IV fluids (3) Chronic schizophrenia Current Visit: No Status: Acute Assessment and plan: Resume psych meds including valproic acid, patient has not taken it for a month and is very unlikely that it contributed to her hyponatremia ativan and Haldol prn (4) Bipolar disorder, curr episode mixed, severe, with psychotic features Current Visit: Yes Status: Acute (5) Weakness Current Visit: Yes Status: Acute (6) Agoraphobia Current Visit: Yes Status: Acute Assessment and plan: May continue Ativan as needed Will arrange placement in the morning - Subjective Interval history: Very confused, denies any abdominal pain, confused and disoriented in time, denies chest pain or shortness of breath, no diarrhea, agitated and upset about not being discharged again - Constitutional Vitals: Temp Pulse Resp BP Pulse Ox 98.0 F 65 14 122/84 99 02/13/17 12:22 02/13/17 12:22 02/13/17 12:22 02/13/17 12:22 02/13/17 12:22 General appearance: Present: cooperative, A&O X 2 (Disoriented in time), mild distress - Head Head exam: Present: atraumatic, normocephalic - Eye Eye exam: Present: PERRL, conjuntiva pink, sclera anicteric Pupils: Present: PERRL - Neck Neck exam general surgery: Present: supple, trachea midline. Absent: lymphadenopathy - Respiratory Respiratory exam: Present: CTAB. Absent: accessory muscle use, rales, rhonchi, wheezes - Cardiovascular Cardiovascular exam: Present: RRR, +S1, +S2. Absent: diastolic murmur, gallop, rubs, systolic murmur - GI/Abdominal GI/Abdominal exam: Present: normal bowel sounds, soft, no peritoneal signs. Absent: distended, tenderness - Extremities Exam Extremities exam: Present: warm, radial pulses palpable and symmetrical. Absent : calf tenderness, cyanotic, pedal edema - Neurological Exam Neurological exam: Present: CN II-XII intact, no focal deficits. Absent: oriented X3 (Pino catheter in place), pronater drift, facial droop, speech deficit - Skin Skin exam: Present: dry, intact Internal Medicine: Result - Labs CBC & Chem 7: 02/13/17 02:12 02/13/17 02:12 Labs: Short CBC 02/13/17 Range/Units 02:12 WBC 5.2 (4.3-11.1) K/mcL Hgb 10.7 L (11.5-15.4) g/dL Hct 30.9 L (35.3-44.9) % Plt Count 177 (140-400) K/mcL BMP 02/12/17 02/13/17 02/13/17 16:15 02:12 02:12 Sodium 131 L D 132 L 131 L Potassium 4.3 Chloride 100 Carbon Dioxide 25 BUN 15 Creatinine 0.70 Glucose 97 Calcium 7.8 L - ABG Interpretation ABG results: PT/INR, D-dimer PT 11.3 Seconds (9.4-12.1) 02/10/17 13:45 Consult Discharge Plan - Plan Referrals: NONE,PCP [Primary Care Provider] - (Patient will follow up with ECF PCP)
[2017-02-13] MEDS ORDERED: *HR* LORazepam 2 MG/ML VIAL IVP PRN (15:00)
[2017-02-13] MEDS: OLANZapine 10 MG TAB.RAPDIS PO SCH (19:55)
[2017-02-14 03:57] LABS: BUN/Creatinine Ratio 26 (6-26); Blood Urea Nitrogen 18 mg/dL (7-20); Calcium 8.2 mg/dL (8.6-10.8); Carbon Dioxide 25 mEq/L (19-29); Chloride 100 mEq/L (98-109); Glucose 90 mg/dL (70-99); Osmolality,Calculated 271 (280-300); Potassium 4.6 mEq/L (3.5-4.5); Sodium 130 mEq/L (136-145); eGFR For African Americans > 60 (> 60); eGFR For Non-African Americans > 60 (> 60)
[2017-02-14] MEDS: Ibuprofen 600 MG TABLET PO PRN (05:55)
[2017-02-14] MEDS: *HR* Enoxaparin 40 MG/0.4 ML SYRINGE SQ SCH (05:56)
--- NOTE | 2017-02-14 08:20 | Nephrology Progress Note ---
Date of Encounter: 02/14/17 Time of Encounter: 08:18 - Assessment and Plan (1) Hyponatremia Current Visit: Yes Status: Acute Patient has euvolemic hyponatremia. Appears to be an SIADH-like process. Her sodium has improved. I would continue treating her with fluid restriction as well as sodium bicarbonate tablets. She has been resumed on Depakote. Her sodium went up to be monitored as an outpatient. (2) Bipolar disorder, curr episode mixed, severe, with psychotic features Current Visit: Yes Status: Acute Subjective Interval history: Patient reports no new complaints. She says she is anxious to go home. Her sodium is stable at 1:30. Potassium is 4.6. Urine output is satisfactory. Objective - Vital Signs Vital signs: Vital Signs Temp Pulse Resp BP Pulse Ox 02/14/17 07:12 97.6 F 66 14 156/94 96 02/14/17 03:45 98.3 F 65 16 163/85 97 02/14/17 00:05 98.2 F 61 16 142/90 98 02/13/17 19:48 98.5 F 67 17 123/80 98 02/13/17 16:58 98.0 F 65 18 136/84 93 02/13/17 12:22 98.0 F 65 14 122/84 99 Intake and Output 02/13/17 02/14/17 02/14/17 23:59 07:59 15:59 Output Total 1200 / 1200 3225 / 3225 Balance -1200 / -1200 -3225 / -3225 Output: Catheter 1200 / 1200 3225 / 3225 Other: Weight 75.6 kg Patient Weight 02/14/17 23:59 Weight 75.6 kg - General Appearance Exam: Patient is alert and oriented. She is in no acute distress. Lungs clear to auscultation. Heart regular rate and rhythm. Abdomen is benign. There is some mild nonpitting lower extremity swelling. Pino catheter is in place. - Lab 02/13/17 02:12 02/14/17 03:24 Most recent lab results Calcium 8.2 mg/dL (8.6-10.8) L 02/14/17 03:24 Urine Sodium < 20.0 mEq/L 02/11/17 07:43 Consult Discharge Plan - Plan Referrals: NONE,PCP [Primary Care Provider] - (Patient will follow up with F PCP)
--- NOTE | 2017-02-14 08:55 | Discharge Summary ---
Date of Encounter: 02/14/17 Time of Encounter: 08:41 - Discharge Diagnosis (1) Hyponatremia Priority: Primary Status: Acute Comments: Acute metabolic encephalopathy secondary to Severe hyponatremia initially thought to be likely hypovolemic due to poor oral intake, has history of psychogenic polydipsia. Possible SIADH euvolemic hyponatremia (2) Dehydration Priority: Primary Status: Acute (3) Chronic schizophrenia Priority: Secondary Status: Acute (4) Bipolar disorder, curr episode mixed, severe, with psychotic features Priority: Secondary Status: Acute (5) Weakness Priority: Secondary Status: Acute (6) Agoraphobia Priority: Secondary Status: Acute - Discharge Medications Prescriptions: LORazepam [Ativan] 1 mg PO QID PRN #20 tablet PRN Reason: Anxiety LORazepam [Ativan] 0.5 mg PO TID PRN #20 tablet PRN Reason: Anxiety Loxapine Succinate [Loxapine] 10 mg PO 0800,1200 #60 capsule OLANZapine [Zyprexa] 20 mg PO HS #30 tablet Sodium Bicarbonate 650 mg PO BID #60 tablet Sodium Chloride 1,000 mg MC BID #60 tablet.leandra Home Medications: Metoprolol [Lopressor] 50 mg PO BID #60 tablet 03/01/15 [Rx] Calcium Carbonate [Calcium] 500 mg PO BID 02/10/17 [History] Ibuprofen [Motrin] 600 mg PO TID 02/10/17 [History] LORazepam [Ativan] 0.5 mg PO TID PRN #20 tablet 02/14/17 [Rx] LORazepam [Ativan] 1 mg PO QID PRN #20 tablet 02/14/17 [Rx] Loxapine Succinate [Loxapine] 10 mg PO 0800,1200 #60 capsule 02/14/17 [Rx] OLANZapine [Zyprexa] 20 mg PO HS #30 tablet 02/14/17 [Rx] Sodium Bicarbonate 650 mg PO BID #60 tablet 02/14/17 [Rx] Sodium Chloride 1,000 mg MC BID #60 tablet.leandra 02/14/17 [Rx] Allergies/Adverse Reactions: 3 Allergy/AdvReac Type Severity Reaction Status Date / Time No Known Drug Allergies Allergy See Verified 02/22/15 11:16 Comments Date of admission: 02/10/17 19:21 Primary care physician: PCP NONE Consults: 02/10/17 21:03 Consult to Nephrology [CONS] Routine Consulting Provider: [facility] Reason for Consult: hyponatremia Time Notified: 21:03 Call Completed: Yes 02/12/17 04:31 Consult to Podiatry [CONS] Routine Consulting Provider: [facility] Reason for Consult: Patient with extremely long toe nails and dry scaly feet Call Completed: No 02/12/17 13:31 Consult to Invasive Line Access Team [CONS] Routine Reason for Consult: EPIV Line Type: EPIV - Patient Status Disposition: Transfer SNF Condition: Fair Overall status at discharge: patient is progressing back to baseline - Discharge Instructions Follow Up With: NONE,PCP [Primary Care Provider] - (Patient will follow up with ECF PCP) Additional Instructions: Follow-up with primary care physician within the next 7 days. Follow-up with psychiatry within the next week. Continue salt tablets and fluid restriction of 1500 mL per day. Discontinue valproic acid permanently. Quit smoking - Diet and Activity Activity: increase activity as tolerated Diet: low fat, low cholesterol Hospital course: Ms. Vazquez is a 61 year old female with a PMH of CHF possible diastolic, COPD not oxygen dep, HTN, and, bipolar, agoraphobia, paranoid schizophrenia who presented to [facility] with abdominal pain, headache and generalized weakness. She has an extensive psych history and reported being out of medication for the last month. Her reported that she has not seen her provider since August because she refused to go back d/t history of agoraphobia. She stated abdominal pain is intermittent and currently reports 2/10. CT scan of the abdomen showed small amount of air in the bladder, UA was unremarkable, did not complain of any dysuria. Workup in ED revealed hyponatremia with a sodium of 120. reported that she drinks an excessive amount of Pepsi, drinking roughly a 12 pack daily. The first day of her admission her sodium levels increased from 120 to 128 too quickly with normal saline alone, was switched to1/2 ND and D5, Na dropped to 124. Has improved on fluid restriction and salt tablets recommended by nephrology. Valproic acid was discontinued due to possibility of exacerbating her hyponatremia. Needs follow up with Psychiatry. Time spent discussing smoking cessation with patient: 3 to 10 minutes - Time Spent with Patient Total time spent providing and/or coordinating discharge services: Greater than 30 minutes (40 min) - Constitutional Vitals: Temp Pulse Resp BP Pulse Ox 97.6 F 66 14 156/94 96 02/14/17 07:12 02/14/17 07:12 02/14/17 07:12 02/14/17 07:12 02/14/17 07:12 General appearance: Present: cooperative, A&O X 2 (Disoriented in time), mild distress - Head Head exam: Present: atraumatic, normocephalic - Eye Eye exam: Present: PERRL, conjuntiva pink, sclera anicteric Pupils: Present: PERRL - Neck Neck exam general surgery: Present: supple, trachea midline. Absent: lymphadenopathy - Respiratory Respiratory exam: Present: CTAB. Absent: accessory muscle use, rales, rhonchi, wheezes - Cardiovascular Cardiovascular exam: Present: RRR, +S1, +S2. Absent: diastolic murmur, gallop, rubs, systolic murmur - GI/Abdominal GI/Abdominal exam: Present: normal bowel sounds, soft, no peritoneal signs. Absent: distended, tenderness - Extremities Exam Extremities exam: Present: warm, radial pulses palpable and symmetrical. Absent : calf tenderness, cyanotic, pedal edema - Neurological Exam Neurological exam: Present: CN II-XII intact, no focal deficits. Absent: oriented X3, pronater drift, facial droop, speech deficit - Skin Skin exam: Present: dry, intact
--- NOTE | 2017-02-14 09:02 | Physician Discharge Referral ---
ExtendedCare Referral Info Provider in Charge after Transfer: PCP Institutional Level of Care: Skilled - Diagnosis (1) Hyponatremia Status: Acute (2) Dehydration Status: Acute (3) Chronic schizophrenia Status: Acute (4) Bipolar disorder, curr episode mixed, severe, with psychotic features Status: Acute (5) Weakness Status: Acute (6) Agoraphobia Status: Acute - Transfer Medications Prescriptions: LORazepam [Ativan] 1 mg PO QID PRN #20 tablet PRN Reason: Anxiety LORazepam [Ativan] 0.5 mg PO TID PRN #20 tablet PRN Reason: Anxiety Loxapine Succinate [Loxapine] 10 mg PO 0800,1200 #60 capsule OLANZapine [Zyprexa] 20 mg PO HS #30 tablet Sodium Bicarbonate 650 mg PO BID #60 tablet Sodium Chloride 1,000 mg MC BID #60 tablet.leandra Home Medications: Metoprolol [Lopressor] 50 mg PO BID #60 tablet 03/01/15 [Rx] Calcium Carbonate [Calcium] 500 mg PO BID 02/10/17 [History] Ibuprofen [Motrin] 600 mg PO TID 02/10/17 [History] LORazepam [Ativan] 0.5 mg PO TID PRN #20 tablet 02/14/17 [Rx] LORazepam [Ativan] 1 mg PO QID PRN #20 tablet 02/14/17 [Rx] Loxapine Succinate [Loxapine] 10 mg PO 0800,1200 #60 capsule 02/14/17 [Rx] OLANZapine [Zyprexa] 20 mg PO HS #30 tablet 02/14/17 [Rx] Sodium Bicarbonate 650 mg PO BID #60 tablet 02/14/17 [Rx] Sodium Chloride 1,000 mg MC BID #60 tablet.leandra 02/14/17 [Rx] Allergies/Adverse Reactions: 3 Allergy/AdvReac Type Severity Reaction Status Date / Time No Known Drug Allergies Allergy See Verified 02/22/15 11:16 Comments - Respiratory Orders Smoking Cessation: Smoking cessation has been advised. For more information, call the [place] Tobacco Quit Line at 9-444-IHOU-NOW. - Advance Directives Code Status: Full Code - Rehabiliation Orders Other: Follow-up with primary care physician within the next 7 days. Follow-up with psychiatry within the next week. Continue salt tablets and fluid restriction of 1500 mL per day. Discontinue valproic acid permanently. Quit smoking CERTIFICATION: I certify that the transfer of the above named patient to an Extended Care Facility is necessary for the continuing treatment of the diagnosis listed. The above information is true and accurate reflection of patient's current condition. Confidential - Redisclosure prohibited without a patient's written consent.
[2017-02-14] MEDS: Loxapine Succinate [Loxapine] 10 MG PO SCH ×2 (09:09→12:09)
[2017-02-14] MEDS: Divalproex (12 HR) 250 MG TABLET PO SCH ×2 (09:24→20:45)
[2017-02-14] MEDS: *HR* LORazepam 1 MG TABLET PO SCH ×4 (09:24→20:45)
[2017-02-14] MEDS: Nystatin POWDER 30 GM BOTTLE TP SCH ×2 (09:27→20:45)
--- NOTE | 2017-02-14 14:11 | Consult Note ---
Date of Encounter: 02/14/17 Time of Encounter: 14:07 Assessment & Recommendation (1) Chronic schizophrenia Current visit: No Status: Acute Assessment & Recommendation: Would recommend an inpatient rehab facility that can address her mental health as well as her physical health needs. Has not been compliant with outpatient mental health treatment. Can restart her home meds for now but would be best to have her assessed repeatedly at whatever facility she ends up going to. Client is denying SI/HI/AH/VH so there is no emergent issue. However, she likely has some baseline delusional thoughts that need addressed on an ongoing basis. Thought disorder may be impacting her PO intake so repeat assessments in a secure setting will be beneficial. May need skilled nursing care depending on how well she responds to treatment and how quickly she gets her strength back. History of Present Illness Requesting Physician: Alfredito Lamar Reason for consult: discharge disposition History of present illness: Ms. Vazquez is a 61 year old female who was admitted secondary to weakness and hyponatremia. History of Schizoaffective Disorder but client not compliant with treatment for mental illness. According to she has only been out of the house a handful of times in the last three years. He has been trying to care for her at home but client has been refusing food due to fearing it was poisoned. Has also been drinking Pepsi excessively which is likely contributing to her hyponatremia. Not bathing. Client denies SI/HI/AH/VH but admits she has not been attending to her ADLs. Does not want to go to a rehab facility but cannot meet her needs in the home. Adult children have been suggesting she needs a mcc for some time. CC: Alfredito Lamar Past Med Surg Social Fam HX - Past Medical History Medical history: CHF, COPD, hypertension - Past Psychiatric History Psychiatric history: Reports: schizophrenia, previous psychiatric hospitalization Family psychiatric history: Unknown Family History of Suicide: Unknown - Past Surgical History Surgical History: colostomy - Social History Smoking Status: Current every day smoker Smokeless Tobacco Status: No Alcohol use: none Drug use: none - Family History Mother Hx Family Endocrine Disorder: Yes (DM) Father Hx Family Neurologic Disorders: Yes (CVA) Medications & Allergies Metoprolol [Lopressor] 50 mg PO BID #60 tablet 03/01/15 [Rx] Calcium Carbonate [Calcium] 500 mg PO BID 02/10/17 [History] Ibuprofen [Motrin] 600 mg PO TID 02/10/17 [History] LORazepam [Ativan] 0.5 mg PO TID PRN #20 tablet 02/14/17 [Rx] LORazepam [Ativan] 1 mg PO QID PRN #20 tablet 02/14/17 [Rx] Loxapine Succinate [Loxapine] 10 mg PO 0800,1200 #60 capsule 02/14/17 [Rx] OLANZapine [Zyprexa] 20 mg PO HS #30 tablet 02/14/17 [Rx] Sodium Bicarbonate 650 mg PO BID #60 tablet 02/14/17 [Rx] Sodium Chloride 1,000 mg MC BID #60 tablet.leandra 02/14/17 [Rx] 3 Allergy/AdvReac Type Severity Reaction Status Date / Time No Known Drug Allergies Allergy See Verified 02/22/15 11:16 Comments Review of Systems Constitutional: Reports: weakness Eyes: Denies: eye pain, vision change Ears, Nose, Throat: Denies: ear pain, throat pain, dental pain, hearing loss, congestion Cardiovascular: Denies: chest pain, palpitations, dyspnea on exertion Respiratory: Denies: cough, dyspnea, wheezes Gastrointestinal: Reports: abdominal pain, other Genitourinary male: Denies: urgency, dysuria, frequency, genital lesions Genitourinary female: Denies: urgency, dysuria, frequency, abnormal menses, dyspareunia Musculoskeletal: Reports: myalgia Integumentary: Denies: rash, lesions, pruritus Neurological: Reports: weakness, numbness Psychiatric: Reports: change in appetite, mood swings Endocrine: Denies: fatigue, heat or cold intolerance Hematologic/Lymphatic: Denies: easy bruising, lymphadenopathy Allergic/Immunologic: Denies: urticaria, itchy eyes Mental Status Exam Patient orientation: Yes Person, Yes Time, Yes Place Level of alertness: Alert Patient appearance: Unkempt Behavior: tearful, agitated Psychomotor activity: Normal Eye contact: Maintains Eye Contact Mood description: Irritable Affect description: congruent with mood Speech pattern: Normal rate, Normal rhythm, Normal tone Speech volume: Loud Thought process: Linear Thought content: No Suicidal ideation, No Homicidal ideation, No Overt delusions Perceptual disturbances: No Auditory hallucinations, No Visual hallucinations Attention span: Capable of Focused Attention Memory description: Grossly Intact Patient reliability: Questionable Historian Intelligence estimate: Average Judgment: Limited Insight: Minimal Results - Vital Signs Vital signs: Temp Pulse Resp BP Pulse Ox 97.8 F 85 13 132/85 97 02/14/17 10:35 02/14/17 10:35 02/14/17 10:35 02/14/17 10:35 02/14/17 10:35 - Labs Labs: Laboratory Last Values WBC 5.2 K/mcL (4.3-11.1) 02/13/17 02:12 RBC 3.62 M/mcL (3.82-4.97) L 02/13/17 02:12 Hgb 10.7 g/dL (11.5-15.4) L 02/13/17 02:12 Hct 30.9 % (35.3-44.9) L 02/13/17 02:12 MCV 85.4 fL (83.0-100.0) 02/13/17 02:12 MCH 29.6 pg (28.0-33.3) 02/13/17 02:12 MCHC 34.6 g/dL (31.6-35.5) 02/13/17 02:12 RDW 12.1 % (11.5-14.5) 02/13/17 02:12 Plt Count 177 K/mcL (140-400) 02/13/17 02:12 MPV 9.2 fL (9.4-12.4) L 02/13/17 02:12 Immature Gran % 1.7 % (0-4) 02/11/17 04:49 Seg Neutrophils % 51.9 % 02/11/17 04:49 Lymphocytes % 32.8 % 02/11/17 04:49 Monocytes % 12.9 % 02/11/17 04:49 Eosinophils % 0.2 % 02/11/17 04:49 Basophils % 0.5 % 02/11/17 04:49 Neutrophils # 3.1 K/mcL (1.6-8.9) 02/11/17 04:49 Lymphocytes # 2.0 K/mcL (0.6-4.6) 02/11/17 04:49 Monocytes # 0.8 K/mcL (0.0-1.3) 02/11/17 04:49 Eosinophils # 0.0 K/mcL (0.0-0.6) 02/11/17 04:49 Basophils # 0.0 K/mcL (0.0-0.2) 02/11/17 04:49 PT 11.3 Seconds (9.4-12.1) 02/10/17 13:45 INR 1.1 02/10/17 13:45 Sodium 130 mEq/L (136-145) L 02/14/17 03:24 Potassium 4.6 mEq/L (3.5-4.5) H 02/14/17 03:24 Chloride 100 mEq/L (98-109) 02/14/17 03:24 Carbon Dioxide 25 mEq/L (19-29) 02/14/17 03:24 BUN 18 mg/dL (7-20) 02/14/17 03:24 Creatinine 0.70 mg/dL (0.57-1.11) 02/14/17 03:24 Est GFR ( Amer) > 60 (> 60) 02/14/17 03:24 Est GFR (Non-Af Amer) > 60 (> 60) 02/14/17 03:24 BUN/Creatinine Ratio 26 (6-26) 02/14/17 03:24 Glucose 90 mg/dL (70-99) 02/14/17 03:24 POC Glucose 132 (58-89) H 02/11/17 16:02 Calculated Osmolality 271 (280-300) L 02/14/17 03:24 Calcium 8.2 mg/dL (8.6-10.8) L 02/14/17 03:24 Total Bilirubin 0.3 mg/dL (0.2-1.2) 02/11/17 10:56 Direct Bilirubin 0.2 mg/dL (0.0-0.5) 02/10/17 13:45 Indirect Bilirubin 0.3 mg/dL (0.0-1.2) 02/10/17 13:45 AST 8 Units/L (5-34) 02/11/17 10:56 ALT < 6 Units/L (0-55) 02/11/17 10:56 Alkaline Phosphatase 60 Units/L (38-126) 02/11/17 10:56 Troponin I 0.00 ng/mL (0-0.03) 02/10/17 13:45 Serum Total Protein 6.1 g/dL (6.0-8.3) 02/11/17 10:56 Albumin 3.1 g/dL (3.5-5.0) L 02/11/17 10:56 Globulin 3.0 g/dL (2.4-3.5) 02/11/17 10:56 Albumin/Globulin Ratio 1.0 (1.1-2.2) L 02/11/17 10:56 Lipase < 10 Units/L (8-78) 02/10/17 13:45 Random Cortisol 12.8 mcg/dl 02/11/17 10:56 Urine Color Yellow (Yellow) 02/10/17 14:53 Urine Clarity Clear (Clear) 02/10/17 14:53 Urine pH 7.0 pH Units (5.0-8.0) 02/10/17 14:53 Ur Specific [place] < 1.005 (1.010-1.025) L 02/10/17 14:53 Urine Protein Negative mg/dL (Neg-Trace) 02/10/17 14:53 Urine Glucose (UA) Normal mg/dL (Normal) 02/10/17 14:53 Urine Ketones Negative mg/dL (Negative) 02/10/17 14:53 Urine Blood Trace (Negative) H 02/10/17 14:53 Urine Nitrite Negative (Negative) 02/10/17 14:53 Urine Bilirubin Negative (Negative) 02/10/17 14:53 Urine Urobilinogen Normal mg/dL (Normal) 02/10/17 14:53 Ur Leukocyte Esterase Negative (Negative) 02/10/17 14:53 Urine Microscopic RBC 3-5 per hpf (0-3) H 02/10/17 14:53 Urine Microscopic WBC 0-3 per hpf (0-3) 02/10/17 14:53 Amorphous Sediment Few (Few) 02/10/17 14:53 Urine Bacteria Few per hpf (None-Few) 02/10/17 14:53 Ur Culture Indicated? NO (NO) 02/10/17 14:53 Urine Osmolality 412 mOsm/kg (300-900) 02/11/17 13:25 Urine Sodium < 20.0 mEq/L 02/11/17 07:43 Specimen Rejected Hemolyzed 02/11/17 05:40 Consult Discharge Plan - Plan Additional Instructions: Follow-up with primary care physician within the next 7 days. Follow-up with psychiatry within the next week. Continue salt tablets and fluid restriction of 1500 mL per day. Discontinue valproic acid permanently. Quit smoking Referrals: NONE,PCP [Primary Care Provider] - (Patient will follow up with [facility] PCP) Prescriptions: LORazepam [Ativan] 1 mg PO QID PRN #20 tablet PRN Reason: Anxiety LORazepam [Ativan] 0.5 mg PO TID PRN #20 tablet PRN Reason: Anxiety Loxapine Succinate [Loxapine] 10 mg PO 0800,1200 #60 capsule OLANZapine [Zyprexa] 20 mg PO HS #30 tablet Sodium Bicarbonate 650 mg PO BID #60 tablet Sodium Chloride 1,000 mg MC BID #60 tablet.leandra
[2017-02-14] MEDS: OLANZapine 10 MG TAB.RAPDIS PO SCH (20:44)
[2017-02-15] MEDS: *HR* Enoxaparin 40 MG/0.4 ML SYRINGE SQ SCH (05:23)
[2017-02-15] MEDS: Loxapine Succinate [Loxapine] 10 MG PO SCH ×2 (07:40→12:13)
[2017-02-15] MEDS: *HR* LORazepam 1 MG TABLET PO SCH ×3 (09:52→16:12)
[2017-02-15] MEDS: Divalproex (12 HR) 250 MG TABLET PO SCH (09:52)
[2017-02-15] MEDS: Ibuprofen 600 MG TABLET PO PRN (09:57)
[2017-02-15] MEDS: Nystatin POWDER 30 GM BOTTLE TP SCH (09:57)
[2017-02-15 11:25] VITALS: BP 129/82
[2017-02-15 12:37] LABS: Basophils % 0.6 %; Eosinophils % 0.1 %; Hematocrit 33.6 % (35.3-44.9); Hemoglobin 11.9 g/dL (11.5-15.4); Immature Platelets 2.3 % (1.1-6.1); Lymphocytes # 1.5 K/mcL (0.6-4.6); Lymphocytes % 21.4 %; Mean Corpuscular HGB Conc 35.4 g/dL (31.6-35.5); Mean Corpuscular Volume 84.6 fL (83.0-100.0); Mean Platelet Volume 8.7 fL (9.4-12.4); Monocytes # 0.6 K/mcL (0.0-1.3); Monocytes % 8.3 %; Neutrophils # 4.8 K/mcL (1.6-8.9); Platelet Count 198 K/mcL (140-400); Red Blood Count 3.97 M/mcL (3.82-4.97); Red Cell Distribution Width 11.9 % (11.5-14.5); Segmented Neutrophils % 67.6 %
[2017-02-15 12:50] LABS: BUN/Creatinine Ratio 20 (6-26); Blood Urea Nitrogen 13 mg/dL (7-20); Calcium 8.6 mg/dL (8.6-10.8); Carbon Dioxide 25 mEq/L (19-29); Chloride 98 mEq/L (98-109); Glucose 112 mg/dL (70-99); Osmolality,Calculated 271 (280-300); Potassium 4.3 mEq/L (3.5-4.5); Sodium 130 mEq/L (136-145); eGFR For African Americans > 60 (> 60); eGFR For Non-African Americans > 60 (> 60)
--- NOTE | 2017-02-15 15:24 | Discharge Summary ---
Date of Encounter: 02/15/17 Time of Encounter: 15:22 - Discharge Diagnosis (1) Hyponatremia Priority: Primary Status: Acute (2) Malaise and fatigue Priority: Secondary Status: Acute (3) Abdominal pain Priority: Secondary Status: Resolved Qualifiers: Abdominal location: generalized Qualified Code(s): R10.84 - Generalized abdominal pain (4) Agoraphobia Priority: Secondary Status: Acute (5) Chronic schizophrenia Priority: Secondary Status: Acute - Discharge Medications Prescriptions: Loxapine Succinate [Loxapine] 10 mg PO 0800,1200 #60 capsule Sodium Bicarbonate 650 mg PO BID #60 tablet Home Medications: Metoprolol [Lopressor] 50 mg PO BID #60 tablet 03/01/15 [Rx] Calcium Carbonate [Calcium] 500 mg PO BID 02/10/17 [History] Ibuprofen [Motrin] 600 mg PO TID 02/10/17 [History] Loxapine Succinate [Loxapine] 10 mg PO 0800,1200 #60 capsule 02/14/17 [Rx] Sodium Bicarbonate 650 mg PO BID #60 tablet 02/14/17 [Rx] Nystatin POWDER [Nystop] 1 appl TP BID bottle 02/15/17 [Rx] OLANZapine [Zyprexa Zydis] 20 mg PO HS tab.rapdis 02/15/17 [Rx] Allergies/Adverse Reactions: 3 Allergy/AdvReac Type Severity Reaction Status Date / Time No Known Drug Allergies Allergy See Verified 02/22/15 11:16 Comments Date of admission: 02/10/17 19:21 Primary care physician: PCP NONE Consults: 02/10/17 21:03 Consult to Nephrology [CONS] Routine Consulting Provider: [facility] Reason for Consult: hyponatremia Time Notified: 21:03 Call Completed: Yes 02/12/17 04:31 Consult to Podiatry [CONS] Routine Consulting Provider: [facility] Reason for Consult: Patient with extremely long toe nails and dry scaly feet Call Completed: No 02/12/17 13:31 Consult to Invasive Line Access Team [CONS] Routine Reason for Consult: EPIV Line Type: EPIV 02/14/17 10:25 Consult to Psychiatry [CONS] Routine Consulting Provider: Psychiatry [facility] Reason for Consult: bipolar, schizophrenia, can't take valproic acid due to hyponatremia Call Completed: Yes Discharging clinician: Tisha Phillips - Patient Status Disposition: Home, Self-Care Condition: Fair Functional capacity at discharge: uses cane/walker Overall status at discharge: patient is progressing back to baseline - Discharge Instructions Follow Up With: NONE,PCP [Primary Care Provider] - (Patient will follow up with [facility] PCP) Additional Instructions: Follow-up with primary care physician within the next 7 days. Follow-up with psychiatry within the next week. Continue salt tablets and fluid restriction of 1500 mL per day. Discontinue valproic acid permanently. Quit smoking - Diet and Activity Activity: resume usual activities as tolerated Diet: advance to your usual diet Interval History: Ms. Vazquez is a 61 year old female with a PMH of CHF, COPD, HTN, and paranoid schizophrenia who presents to [facility] today with abdominal pain, headache and generalized weakness. She has an extensive psych history and reports being out of medication for the last month. Her reports that she has not seen her provider since August because she refused to go back d/t history of agoraphobia. She states abdominal pain is intermittent and currently reports 2/ 10. Denies fevers,dysuria, hematuria, or nausea and vomiting. Workup in ED reveals hyponatremia with a sodium of 120. at bedside and reports that she drinks an excessive amount of Pepsi, drinking roughly a 12 pack daily. She is being admitted for further workup and correction of hyponatremia. She was on Zyprexa and Depakote however she has not been compliant with these so less likely was contributing to her hyponatremia. Hospital course: Nephrology evaluated patient and it appeared as hyponatremia may have been due to poor by mouth intake. She has had poor appetite chronically prior to admission. Her fluid was restricted to 1500 mL per day and she was started on sodium chloride tablets. Her sodium was corrected with IV fluids as well she plateaued her sodium at about 1:30 to 131. At that point IV fluids were stopped. The patient's schizophrenia with agoraphobia has contributed to her noncompliance. Psychiatry was consulted about this. They did suggest that she goes to an outside facility to improve her compliance and overall well-being. They did recommend inpatient rehabilitation facility. Ultimately patient refused. She was assessed to be competent to make her own decisions, she did voice an understanding of her current medical condition, did state she chooses to go back to taking medication, and did reason that she is better off with taking her medication to prevent any episodes of psychosis. Because she refuses , she was then discharged home. Case management is working to see if patient is willing to do home healthcare services which would possibly help her compliance. - Time Spent with Patient Total time spent providing and/or coordinating discharge services: - Constitutional Vitals: Temp Pulse Resp BP Pulse Ox 97.8 F 87 16 129/82 96 02/15/17 11:22 02/15/17 11:22 02/15/17 11:22 02/15/17 11:22 02/15/17 11:22 General appearance: Present: cooperative, A&O X 2 (Disoriented in time), mild distress - Head Head exam: Present: atraumatic, normocephalic - Eye Eye exam: Present: PERRL, conjuntiva pink, sclera anicteric Pupils: Present: PERRL - Respiratory Respiratory exam: Present: CTAB. Absent: accessory muscle use, rales, rhonchi, wheezes - Cardiovascular Cardiovascular exam: Present: RRR, +S1, +S2. Absent: diastolic murmur, gallop, rubs, systolic murmur
[2017-02-15] MEDS ORDERED: FLUARIX QUAD 2017-18 36MOS UP/PF 0.5 ML SYRINGE IM ONE (16:17)
== END 2017-02-15 17:50 | disposition home or self-care (01) | DRG 424 ==
LOC: EMEROO 13:22 → 2ANU 13:22 → SUATTDRO 19:21
PROVIDERS: ADMIT Student in an Organized Health Care Education/Training Program; ATTEND Student in an Organized Health Care Education/Training Program

== ENCOUNTER 2017-02-25 16:08 | Inpatient (IN) ==
--- NOTE | 2017-02-25 16:28 | Emergency Department Note ---
Disposition Clinical Impression: Hyponatremia, Confusion, Generalized weakness Disposition: Admitted As Inpatient Condition: Fair Time of Disposition: 17:22 Fall HPI - General Chief Complaint: ED Fall Stated Complaint: fall Time Seen by Provider: 02/25/17 16:10 Source: patient Mode of arrival: ambulatory Limitations: no limitations Nursing Notes Reviewed: Yes Vital Signs Reviewed: Yes - History of Present Illness HPI Narrative: 61-year-old who apparently was confused and fell according to the squad. The patient has had intermittent confusion and difficulty ambulating with generalized weakness. Pt Subjective Complaint: fall Onset (ago): Just [employer]OOK[employer] Fall From: standing Fall Witnessed: yes Place Fall Occurred: home Loss of Consciousness: unsure Prolonged Down Time?: unclear Symptoms Prior to Fall: other Context: history of frequent falls Location of injury: head - Related Data Home Medications Medication Instructions Recorded Confirmed Calcium Carbonate [Calcium] 500 mg PO BID 02/10/17 02/25/17 Ibuprofen [Motrin] 600 mg PO TID 02/10/17 02/25/17 Calcium Carbonate/Vitamin D3 1 tab PO BID 02/25/17 02/25/17 [Oyster Shell Calcium-Vit D Tab] Divalproex (12 HR) [Depakote (12 500 mg PO BID 02/25/17 02/25/17 HR)] LORazepam [Ativan] 1 mg PO Q6H 02/25/17 02/25/17 Previous Rx's Medication Instructions Recorded Metoprolol [Lopressor] 50 mg PO BID #60 tablet 03/01/15 Loxapine Succinate [Loxapine] 10 mg PO 0800,1200 #60 capsule 02/14/17 Sodium Bicarbonate 650 mg PO BID #60 tablet 02/14/17 Nystatin POWDER [Nystop] 1 appl TP BID bottle 02/15/17 OLANZapine [Zyprexa Zydis] 20 mg PO HS tab.rapdis 02/15/17 Allergies Allergy/AdvReac Type Severity Reaction Status Date / Time No Known Drug Allergies Allergy See Verified 02/22/15 11:16 Comments All systems ED: reviewed and negative except as stated. Constitutional: Denies: fever, chills, weakness, weight change Eyes: Denies: eye pain, eye discharge, vision change ENT ED: Denies: ear pain, throat pain, dental pain, hearing loss, epistaxis, congestion, dysphagia Cardiovascular: Denies: chest pain, palpitations, dyspnea on exertion, edema, syncope Respiratory: Denies: cough, dyspnea, wheezes, hemoptysis, stridor Gastrointestinal: Denies: abdominal pain, nausea, vomiting, diarrhea, constipation, hematemesis, melena, hematochezia Genitourinary: Denies: dysuria, frequency, hematuria, discharge Musculoskeletal: Denies: back pain, neck pain, arthralgia, myalgia Integumentary: Denies: rash, abrasion, lesions Neurological: Reports: headache. Denies: weakness, numbness, paresthesias, confusion, abnormal gait, vertigo Psychiatric: Denies: anxiety, depression, suicidal thoughts, homicidal thoughts , auditory hallucinations, visual hallucinations Endocrine: Denies: fatigue Hematological/Lymphatic: Denies: easy bleeding, easy bruising Allergic/Immunologic: Denies: facial swelling, urticaria Fall PMH - Past Medical History Medical history: Reports: CHF, COPD, hypertension Surgical history: Reports: colostomy Psychiatric history: Reports: schizophrenia, previous psychiatric hospitalization - Social History Smoking Status: Current every day smoker Alcohol use: Reports: none Drug use: Reports: none Physical Exam - General Limitations: altered mental status General appearance: alert - Head Head exam: atraumatic, normocephalic, normal inspection - Eye Eye exam: Present: normal appearance, PERRL, EOMI, other - ENT ENT exam: normal exam, normal oropharynx, mucous membranes moist - Neck Neck exam: Present: normal inspection, full ROM, trachea midline - Chest Chest inspection: Present: normal inspection, symmetric chest wall rise - Respiratory Respiratory exam: Present: normal lung sounds bilaterally - Cardiovascular Cardiovascular exam: Present: regular rate, normal rhythm, normal heart sounds - Abdominal Exam Abdominal exam: Present: soft, Non-Tender. Absent: tenderness, distention, guarding, rebound, rigidity - Extremities Exam Extremities exam: Present: normal inspection, full ROM. Absent: tenderness, pedal edema - Expanded Lower Extremity Exam Neurovascular/Tendon exam: Present: normal capillary refill Gait: not tested/not observed - Back Exam Back exam: Present: normal inspection, full ROM. Absent: tenderness - Neurological Exam Neurological exam: Present: alert, other (Patient has a random statements that are not related to the current topic.). Absent: motor sensory deficit - Psychiatric Psychiatric exam: Present: normal affect, normal mood - Skin Skin exam: Present: warm, dry, intact, normal color Course - Reevaluation(s) Reevaluation #1: 61-year-old female whose had generalized weakness falls and confusion found to have a sodium of 108. Function is normal. A she continually asked for water. Time: 18:40 - Consultations Consultation #1: Discussed with Dr. Gupta, recommends 0.9 normal saline at 75, a every 2 hour sodium. Also recommended a urine osmolality and urine sodium. And a TSH and a random cortisol in the a.m. Time: 17:21 Consultation #2: Discussed with James Brock, georgi. Time: 18:29 Vital Signs Temperature 98.3 F 02/25/17 16:11 Pulse Rate 112 02/25/17 16:11 Respiratory Rate 19 02/25/17 16:11 Blood Pressure 105/75 02/25/17 16:11 O2 Sat by Pulse Oximetry 95 02/25/17 16:11 Temperature 98.3 F 02/25/17 16:11 Pulse Rate 110 02/25/17 17:54 Respiratory Rate 19 02/25/17 17:54 Blood Pressure 124/89 02/25/17 17:54 O2 Sat by Pulse Oximetry 98 02/25/17 17:54 Oxygen Delivery Oxygen Delivery Room Air Fall - Lab Data Lab results reviewed: Yes I reviewed the patient's lab results. Result diagrams: 02/25/17 16:41 02/25/17 18:31 Lab Results 02/25/17 02/25/17 02/25/17 Range/Units 16:30 16:38 16:41 WBC (4.3-11.1) K/mcL RBC (3.82-4.97) M/mcL Hgb (11.5-15.4) g/dL Hct (35.3-44.9) % MCV (83.0-100.0) fL MCH (28.0-33.3) pg MCHC (31.6-35.5) g/dL RDW (11.5-14.5) % Plt Count (140-400) K/mcL MPV (9.4-12.4) fL Immature Gran % (0-4) % Seg Neutrophils % % Lymphocytes % % Monocytes % % Eosinophils % % Basophils % % Neutrophils # (1.6-8.9) K/mcL Lymphocytes # (0.6-4.6) K/mcL Monocytes # (0.0-1.3) K/mcL Eosinophils # (0.0-0.6) K/mcL Basophils # (0.0-0.2) K/mcL Nucleated RBCs/100 WBC (0) /100 WBC Immature Plt Fraction (1.1-6.1) % Rebecca Cells (Not Present) PT 12.1 (9.4-12.1) Seconds INR 1.1 APTT 31.5 (26.0-36.0) Seconds Sodium (136-145) mEq/L Potassium (3.5-4.5) mEq/L Chloride (98-109) mEq/L Carbon Dioxide (19-29) mEq/L BUN (7-20) mg/dL Creatinine (0.57-1.11) mg/dL Est GFR ( Amer) (> 60) Est GFR (Non-Af Amer) (> 60) BUN/Creatinine Ratio (6-26) Glucose (70-99) mg/dL Calculated Osmolality (280-300) Lactic Acid (0.5-2.2) mmol/L Calcium (8.6-10.8) mg/dL Troponin I (0-0.03) ng/mL Urine Color Yellow (Yellow) Urine Clarity Clear (Clear) Urine pH 7.0 (5.0-8.0) pH Units Ur Specific [place] 1.007 L (1.010-1.025) Urine Protein Negative (Neg-Trace) mg/dL Urine Glucose (UA) Normal (Normal) mg/dL Urine Ketones Negative (Negative) mg/dL Urine Blood Negative (Negative) Urine Nitrite Negative (Negative) Urine Bilirubin Negative (Negative) Urine Urobilinogen Normal (Normal) mg/dL Ur Leukocyte Esterase Moderate H (Negative) Urine Microscopic RBC 0-3 (0-3) per hpf Urine Microscopic WBC 3-5 H (0-3) per hpf Ur Squamous Epith Cells Few (None-Few) per lpf Urine Bacteria Moderate H (None-Few) per hpf Ur Culture Indicated? YES A (NO) Urine Sodium < 20.0 mEq/L 02/25/17 02/25/17 02/25/17 Range/Units 16:41 16:41 16:41 WBC 16.9 H (4.3-11.1) K/mcL RBC 4.08 (3.82-4.97) M/mcL Hgb 12.2 (11.5-15.4) g/dL Hct 31.0 L (35.3-44.9) % MCV 76.0 L D (83.0-100.0) fL MCH 29.9 (28.0-33.3) pg MCHC 39.4 H (31.6-35.5) g/dL RDW 12.8 (11.5-14.5) % Plt Count 256 (140-400) K/mcL MPV 9.1 L (9.4-12.4) fL Immature Gran % 0.8 (0-4) % Seg Neutrophils % 88.1 % Lymphocytes % 4.3 % Monocytes % 6.7 % Eosinophils % 0.0 % Basophils % 0.1 % Neutrophils # 14.9 H (1.6-8.9) K/mcL Lymphocytes # 0.7 (0.6-4.6) K/mcL Monocytes # 1.1 (0.0-1.3) K/mcL Eosinophils # 0.0 (0.0-0.6) K/mcL Basophils # 0.0 (0.0-0.2) K/mcL Nucleated RBCs/100 WBC 0.1 H (0) /100 WBC Immature Plt Fraction 5.0 (1.1-6.1) % Rebecca Cells 1+ A (Not Present) PT (9.4-12.1) Seconds INR APTT (26.0-36.0) Seconds Sodium 108 L* (136-145) mEq/L Potassium 4.1 (3.5-4.5) mEq/L Chloride 76 L (98-109) mEq/L Carbon Dioxide 22 (19-29) mEq/L BUN 7 (7-20) mg/dL Creatinine 0.69 (0.57-1.11) mg/dL Est GFR ( Amer) > 60 (> 60) Est GFR (Non-Af Amer) > 60 (> 60) BUN/Creatinine Ratio 10 (6-26) Glucose 103 H (70-99) mg/dL Calculated Osmolality 224 L (280-300) Lactic Acid 1.7 (0.5-2.2) mmol/L Calcium 9.1 (8.6-10.8) mg/dL Troponin I (0-0.03) ng/mL Urine Color (Yellow) Urine Clarity (Clear) Urine pH (5.0-8.0) pH Units Ur Specific [place] (1.010-1.025) Urine Protein (Neg-Trace) mg/dL Urine Glucose (UA) (Normal) mg/dL Urine Ketones (Negative) mg/dL Urine Blood (Negative) Urine Nitrite (Negative) Urine Bilirubin (Negative) Urine Urobilinogen (Normal) mg/dL Ur Leukocyte Esterase (Negative) Urine Microscopic RBC (0-3) per hpf Urine Microscopic WBC (0-3) per hpf Ur Squamous Epith Cells (None-Few) per lpf Urine Bacteria (None-Few) per hpf Ur Culture Indicated? (NO) Urine Sodium mEq/L 02/25/17 02/25/17 Range/Units 16:41 18:31 WBC (4.3-11.1) K/mcL RBC (3.82-4.97) M/mcL Hgb (11.5-15.4) g/dL Hct (35.3-44.9) % MCV (83.0-100.0) fL MCH (28.0-33.3) pg MCHC (31.6-35.5) g/dL RDW (11.5-14.5) % Plt Count (140-400) K/mcL MPV (9.4-12.4) fL Immature Gran % (0-4) % Seg Neutrophils % % Lymphocytes % % Monocytes % % Eosinophils % % Basophils % % Neutrophils # (1.6-8.9) K/mcL Lymphocytes # (0.6-4.6) K/mcL Monocytes # (0.0-1.3) K/mcL Eosinophils # (0.0-0.6) K/mcL Basophils # (0.0-0.2) K/mcL Nucleated RBCs/100 WBC (0) /100 WBC Immature Plt Fraction (1.1-6.1) % Rebecca Cells (Not Present) PT (9.4-12.1) Seconds INR APTT (26.0-36.0) Seconds Sodium 109 L* (136-145) mEq/L Potassium (3.5-4.5) mEq/L Chloride (98-109) mEq/L Carbon Dioxide (19-29) mEq/L BUN (7-20) mg/dL Creatinine (0.57-1.11) mg/dL Est GFR ( Amer) (> 60) Est GFR (Non-Af Amer) (> 60) BUN/Creatinine Ratio (6-26) Glucose (70-99) mg/dL Calculated Osmolality (280-300) Lactic Acid (0.5-2.2) mmol/L Calcium (8.6-10.8) mg/dL Troponin I 0.03 (0-0.03) ng/mL Urine Color (Yellow) Urine Clarity (Clear) Urine pH (5.0-8.0) pH Units Ur Specific [place] (1.010-1.025) Urine Protein (Neg-Trace) mg/dL Urine Glucose (UA) (Normal) mg/dL Urine Ketones (Negative) mg/dL Urine Blood (Negative) Urine Nitrite (Negative) Urine Bilirubin (Negative) Urine Urobilinogen (Normal) mg/dL Ur Leukocyte Esterase (Negative) Urine Microscopic RBC (0-3) per hpf Urine Microscopic WBC (0-3) per hpf Ur Squamous Epith Cells (None-Few) per lpf Urine Bacteria (None-Few) per hpf Ur Culture Indicated? (NO) Urine Sodium mEq/L - Radiology Data Radiology results reviewed: Yes I reviewed the patient's radiology results. Cervical Spine CT 02/25/17 16:24 IMPRESSION: No acute abnormality of the cervical spine. D/ / Shravan Quigley MD / Shravan Quigley MD Interpreting Provider: Shravan Quigley MD Chest X-Ray 02/25/17 16:24 IMPRESSION: No radiographic evidence of acute cardiopulmonary disease. D/ / Bipin Witt MD / Bipin Witt MD Interpreting Provider: Bipin Witt MD Head CT 02/25/17 16:24 IMPRESSION: No acute intracranial abnormality. D/ / Shravan Quigley MD / Shravan Quigley MD Interpreting Provider: Shravan Quigley MD - EKG Data EKG attestation: Yes I reviewed and interpreted this EKG. EKG shows normal: sinus rhythm Rate: tachycardia Rhythm: NSR Interpretation: no acute changes Critical Care Time Critical Care Time: Yes Total Critical Care Time: 30 Attestation: The high probability of a clinically significant, sudden or life threatening deterioration of the [renal] system(s) required my full and direct attention, intervention and personal management. The aggregate critical care time was [30] minutes. This time is in addition to time spent performing reported procedures but includes the following: [x] Data Review and interpretation [x] Patient assessment and monitoring of vital signs [x] Documentation [x] Medication orders and management
[2017-02-25 16:45] LABS: Bilirubin,Urine Negative (Negative); Blood,Urine Negative (Negative); Clarity,Urine Clear (Clear); Color,Urine Yellow (Yellow); Glucose,Urine (UA) Normal (Normal); Ketones,Urine Negative (Negative); Leukocyte Esterase,Urine Moderate (Negative); Nitrite,Urine Negative (Negative); Protein,Urine Negative (Neg-Trace); Specific Gravity,Urine 1.007 (1.010-1.025); Urobilinogen,Urine Normal (Normal)
[2017-02-25 16:48] LABS: Basophils % 0.1 %; Hemoglobin 12.2 g/dL (11.5-15.4); Immature Granulocytes % 0.8 % (0-4); Lymphocytes # 0.7 K/mcL (0.6-4.6); Lymphocytes % 4.3 %; Mean Corpuscular Hemoglobin 29.9 pg (28.0-33.3); Mean Platelet Volume 9.1 fL (9.4-12.4); Monocytes # 1.1 K/mcL (0.0-1.3); Monocytes % 6.7 %; Neutrophils # 14.9 K/mcL (1.6-8.9); Nucleated Red Blood Cells 0.1 /100 WBC (0); Platelet Count 256 K/mcL (140-400); Red Blood Count 4.08 M/mcL (3.82-4.97); Red Cell Distribution Width 12.8 % (11.5-14.5); Segmented Neutrophils % 88.1 %
[2017-02-25 17:05] LABS: Bacteria,Urine Moderate per hpf (None-Few); RBC,Urine 0-3 per hpf (0-3); Squamous Epithelial Cell,Urine Few per lpf (None-Few)
[2017-02-25 17:05] LABS: BUN/Creatinine Ratio 10 (6-26); Blood Urea Nitrogen 7 mg/dL (7-20); Calcium 9.1 mg/dL (8.6-10.8); Carbon Dioxide 22 mEq/L (19-29); Chloride 76 mEq/L (98-109); Glucose 103 mg/dL (70-99); Osmolality,Calculated 224 (280-300); Potassium 4.1 mEq/L (3.5-4.5); eGFR For African Americans > 60 (> 60); eGFR For Non-African Americans > 60 (> 60)
[2017-02-25 17:07] LABS: INR 1.1; Prothrombin Time 12.1 Seconds (9.4-12.1)
[2017-02-25 17:10] LABS: Activated Partial Thrombo Time 31.5 Seconds (26.0-36.0)
[2017-02-25 17:14] LABS: Sodium 108 mEq/L (136-145)
[2017-02-25] MEDS ORDERED: 0.9 % Sodium Chloride 1,000 ML IVC SCH ×2 (17:30→22:29)
[2017-02-25 17:47] LABS: Mean Corpuscular HGB Conc 39.4 g/dL (31.6-35.5)
[2017-02-25 17:48] LABS: Burr Cells 1+ (Not Present)
[2017-02-25 18:02] LABS: Sodium, Urine < 20.0 mEq/L
[2017-02-25 20:24] LABS: BUN/Creatinine Ratio 9 (6-26); Blood Urea Nitrogen 6 mg/dL (7-20); Calcium 9.4 mg/dL (8.6-10.8); Carbon Dioxide 20 mEq/L (19-29); Chloride 79 mEq/L (98-109); Glucose 96 mg/dL (70-99); Osmolality,Calculated 229 (280-300); Potassium 3.8 mEq/L (3.5-4.5); eGFR For African Americans > 60 (> 60); eGFR For Non-African Americans > 60 (> 60)
[2017-02-25 20:34] LABS: Sodium 111 mEq/L (136-145)
[2017-02-25 20:47] LABS: Osmolality,Urine 172 mOsm/kg (300-900)
[2017-02-25 22:18] LABS: BUN/Creatinine Ratio 8 (6-26); Calcium 9.3 mg/dL (8.6-10.8); Carbon Dioxide 20 mEq/L (19-29); Chloride 80 mEq/L (98-109); Glucose 93 mg/dL (70-99); Osmolality,Calculated 233 (280-300); Potassium 3.8 mEq/L (3.5-4.5); eGFR For African Americans > 60 (> 60); eGFR For Non-African Americans > 60 (> 60)
[2017-02-25] MEDS ORDERED: Acetaminophen 325 MG TABLET PO PRN (22:19)
[2017-02-25] MEDS ORDERED: Naloxone 0.4 MG/ML INJ IVP PRN (22:19)
[2017-02-25 22:24] LABS: Blood Urea Nitrogen 5 mg/dL (7-20); Sodium 113 mEq/L (136-145)
[2017-02-25] MEDS: Divalproex (12 HR) 500 MG TABLET PO SCH (22:54)
[2017-02-25] MEDS: *HR* LORazepam 1 MG TABLET PO SCH (22:54)
[2017-02-26 00:31] LABS: BUN/Creatinine Ratio 7 (6-26); Carbon Dioxide 24 mEq/L (19-29); Chloride 80 mEq/L (98-109); Glucose 79 mg/dL (70-99); Osmolality,Calculated 234 (280-300); Potassium 3.3 mEq/L (3.5-4.5); eGFR For African Americans > 60 (> 60); eGFR For Non-African Americans > 60 (> 60)
[2017-02-26 00:34] LABS: Blood Urea Nitrogen 5 mg/dL (7-20); Sodium 114 mEq/L (136-145)
[2017-02-26 02:20] LABS: BUN/Creatinine Ratio 8 (6-26); Calcium 9.1 mg/dL (8.6-10.8); Carbon Dioxide 21 mEq/L (19-29); Chloride 82 mEq/L (98-109); Glucose 84 mg/dL (70-99); Osmolality,Calculated 234 (280-300); Potassium 3.5 mEq/L (3.5-4.5); eGFR For African Americans > 60 (> 60); eGFR For Non-African Americans > 60 (> 60)
[2017-02-26 02:21] LABS: Blood Urea Nitrogen 5 mg/dL (7-20)
[2017-02-26 02:22] LABS: Sodium 114 mEq/L (136-145)
[2017-02-26 04:35] LABS: Basophils % 0.2 %; Eosinophils % 0.6 %; Immature Granulocytes % 0.9 % (0-4); Red Cell Distribution Width 12.9 % (11.5-14.5)
[2017-02-26 04:37] LABS: Eosinophils # 0.1 K/mcL (0.0-0.6); Lymphocytes # 1.6 K/mcL (0.6-4.6); Lymphocytes % 16.2 %; Mean Corpuscular Hemoglobin 29.9 pg (28.0-33.3); Mean Corpuscular Volume 77.3 fL (83.0-100.0); Mean Platelet Volume 9.5 fL (9.4-12.4); Monocytes # 0.9 K/mcL (0.0-1.3); Monocytes % 9.5 %; Platelet Count 203 K/mcL (140-400); Red Blood Count 4.01 M/mcL (3.82-4.97); Segmented Neutrophils % 72.6 %
[2017-02-26 04:46] LABS: Neutrophils # 7.2 K/mcL (1.6-8.9)
[2017-02-26 04:48] LABS: BUN/Creatinine Ratio 9 (6-26); Carbon Dioxide 22 mEq/L (19-29); Chloride 82 mEq/L (98-109); Glucose 84 mg/dL (70-99); Osmolality,Calculated 236 (280-300); Potassium 3.2 mEq/L (3.5-4.5); eGFR For African Americans > 60 (> 60); eGFR For Non-African Americans > 60 (> 60)
[2017-02-26 04:50] LABS: Blood Urea Nitrogen 5 mg/dL (7-20); Mean Corpuscular HGB Conc 38.7 g/dL (31.6-35.5); Sodium 115 mEq/L (136-145)
--- NOTE | 2017-02-26 05:05 | Internal Med History&Physical ---
Date of Encounter: 02/25/17 Time of Encounter: 22:00 Assessment and Plan (1) Chronic schizophrenia Current visit: No Status: Acute Continue home medications (2) Hyponatremia Current visit: Yes Status: Acute Patient has history of schizophrenia on multiple psych medications. Hyponatremia probably due to polydipsia caused by psych medication. - Place patient on fluid restriction 1500ml per day. - Normal saline started at low rate per nephrology consult. Monitor sodium level every 2 hours. Normal saline has been discontinued laterly because sodium level increased from 108 to 114 wheezing about 10 hours. - Continue close monitor sodium level, goal of correcting hyponatremia is not over 8-10 mEq within 24 hours. - Nephrology consult on case (3) Weakness Current visit: Yes Status: Acute Probably due to severe hyponatremia. Continue closely monitor patient (4) DVT prophylaxis Current visit: No Status: Acute Heparin subcutaneously (5) Hypertension Current visit: Yes Status: Acute Continue home medications Qualifiers: Hypertension type: essential hypertension Qualified Code(s): I10 - Essential (primary) hypertension Internal Medicine - H&P: HPI Chief complaint: Weakness Admitted From: Home Plans for Post Hospital Care: Home History of present illness: Ms. Vazquez is a 61 year old female with a history of hypertension, CHF, psychosis present to ER for generalized weakness. Patient said she started to have generalized weakness for 3 days, cannot walk. Patient also complaining of bilateral feet numbness. Patient denies nausea, vomiting, or diarrhea, patient has no pain. She has no fever. Patient generally has good appetite and eating well. In emergency room, she was found severe hyponatremia with sodium level 108. Patient was admitted for further management. Past Med Surg Social Fam HX - Past Medical History Medical history: CHF, COPD, hypertension Psychiatric history: schizophrenia, previous psychiatric hospitalization - Past Surgical History Surgical History: colostomy - Social History Smoking Status: Current every day smoker Smokeless Tobacco Status: No Alcohol use: none Drug use: none - Family History Mother Hx Family Endocrine Disorder: Yes (DM) Father Hx Family Neurologic Disorders: Yes (CVA) Internal Medicine - H&P: Meds Metoprolol [Lopressor] 50 mg PO BID #60 tablet 03/01/15 [Rx] Calcium Carbonate [Calcium] 500 mg PO BID 02/10/17 [History] Ibuprofen [Motrin] 600 mg PO TID 02/10/17 [History] Loxapine Succinate [Loxapine] 10 mg PO 0800,1200 #60 capsule 02/14/17 [Rx] Sodium Bicarbonate 650 mg PO BID #60 tablet 02/14/17 [Rx] Nystatin POWDER [Nystop] 1 appl TP BID bottle 02/15/17 [Rx] OLANZapine [Zyprexa Zydis] 20 mg PO HS tab.rapdis 02/15/17 [Rx] Calcium Carbonate/Vitamin D3 [Oyster Shell Calcium-Vit D Tab] 1 tab PO BID 02/25 [History] Divalproex (12 HR) [Depakote (12 HR)] 500 mg PO BID 02/25/17 [History] LORazepam [Ativan] 1 mg PO Q6H 02/25/17 [History] 3 Allergy/AdvReac Type Severity Reaction Status Date / Time No Known Drug Allergies Allergy See Verified 02/22/15 11:16 Comments All Systems PM: A 10-system review of systems was performed and is negative for pertinent findings except as documented above in the HPI. - Constitutional Vitals: Temp Pulse Resp BP Pulse Ox 98.5 F 95 18 97/66 94 02/26/17 04:10 02/26/17 04:10 02/26/17 04:10 02/26/17 04:10 02/26/17 04:10 General appearance: Present: A&O X 3, no acute distress, answers questions appropriately - Head Head exam: Present: atraumatic, normocephalic - Eye Eye exam: Present: PERRL, conjuntiva pink, sclera anicteric Pupils: Present: PERRL - Neck Neck exam general surgery: Present: supple, trachea midline. Absent: lymphadenopathy - Respiratory Respiratory exam: Present: CTAB. Absent: accessory muscle use, rales, rhonchi, wheezes - Cardiovascular Cardiovascular exam: Present: RRR, +S1, +S2. Absent: diastolic murmur, gallop, rubs, systolic murmur - GI/Abdominal GI/Abdominal exam: Present: normal bowel sounds, soft, no peritoneal signs. Absent: distended, tenderness - Extremities Exam Extremities exam: Present: warm, radial pulses palpable and symmetrical. Absent : calf tenderness, cyanotic, pedal edema - Neurological Exam Neurological exam: Present: CN II-XII intact, oriented X3, no focal deficits. Absent: pronater drift, facial droop, speech deficit - Skin Skin exam: Present: dry, intact Internal Med - H&P Results - Labs CBC & Chem 7: 02/26/17 04:14 02/26/17 04:14 Labs: Short CBC 02/26/17 Range/Units 04:14 WBC 9.9 (4.3-11.1) K/mcL Hgb 12.0 (11.5-15.4) g/dL Hct 31.0 L (35.3-44.9) % Plt Count 203 (140-400) K/mcL Neutrophils # 7.2 (1.6-8.9) K/mcL BMP 02/26/17 02/26/17 02/26/17 00:09 02:03 04:14 Sodium 114 L* 114 L* 115 L* Potassium 3.3 L 3.5 3.2 L Chloride 80 L 82 L 82 L Carbon Dioxide 24 21 22 BUN 5 L 5 L 5 L Creatinine 0.71 0.59 0.57 Glucose 79 84 84 Calcium 9.0 9.1 9.0
[2017-02-26] MEDS: *HR* LORazepam 1 MG TABLET PO SCH ×4 (05:17→22:33)
[2017-02-26] MEDS: *HR* Heparin 5,000 UNIT/ML VIAL SQ SCH ×2 (05:18→17:45)
[2017-02-26 06:45] LABS: BUN/Creatinine Ratio 6 (6-26); Calcium 9.4 mg/dL (8.6-10.8); Carbon Dioxide 24 mEq/L (19-29); Chloride 81 mEq/L (98-109); Glucose 80 mg/dL (70-99); Osmolality,Calculated 238 (280-300); Potassium 3.2 mEq/L (3.5-4.5); eGFR For African Americans > 60 (> 60); eGFR For Non-African Americans > 60 (> 60)
[2017-02-26 06:46] LABS: Blood Urea Nitrogen 4 mg/dL (7-20)
[2017-02-26 06:47] LABS: Sodium 116 mEq/L (136-145)
--- NOTE | 2017-02-26 07:45 | Event Note ---
Date of Encounter: 02/26/17 Time of Encounter: 07:43 [facility] I received an ER consult for this pt last night, but this AM upon reviewing her chart, she just was seen by the other nephrology group with Dr. Yao about a week ago. Since the pt is established with him, please consult his group. Thank you.
[2017-02-26] MEDS: LOXAPINE 10 MG PO SCH ×2 (07:54→10:55)
[2017-02-26] MEDS ORDERED: Magnesium Sulfate 2 GM in D5% in Water 100 ML IVPB ONE ×2 (08:09→09:10)
[2017-02-26] MEDS: Divalproex (12 HR) 500 MG TABLET PO SCH ×2 (08:27→21:12)
[2017-02-26] MEDS: CALCIUM/VITAMIN D PO SCH ×2 (08:27→21:15)
[2017-02-26] MEDS: Nystatin POWDER 30 GM BOTTLE TP SCH ×2 (08:32→21:14)
[2017-02-26 09:54] LABS: BUN/Creatinine Ratio 8 (6-26); Calcium 9.3 mg/dL (8.6-10.8); Carbon Dioxide 19 mEq/L (19-29); Chloride 85 mEq/L (98-109); Glucose 118 mg/dL (70-99); Osmolality,Calculated 242 (280-300); eGFR For African Americans > 60 (> 60); eGFR For Non-African Americans > 60 (> 60)
[2017-02-26 09:56] LABS: Blood Urea Nitrogen 5 mg/dL (7-20)
[2017-02-26 10:00] LABS: Sodium 117 mEq/L (136-145)
--- NOTE | 2017-02-26 11:05 | Internal Med Progress Note ---
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, also psych meds Na on arirval at 1020 108, now 117-improved by 9meq in 36 hrs Continue to monitor q6h Renal eval is pending Continue fluid restriction No IVF for now (3) Weakness Current Visit: Yes Status: Acute Assessment and plan: PTOT eval Last admission was recommended for placement SW eval fall precautions (4) DVT prophylaxis Current Visit: Yes Status: Acute Assessment and plan: Heparin SQ (5) Hypertension Current Visit: Yes Status: Chronic Assessment and plan: BP borderline low, MAP >70 Hold metoprolol for now Qualifiers: Hypertension type: essential hypertension Qualified Code(s): I10 - Essential (primary) hypertension (6) Abnormal urinalysis Current Visit: Yes Status: Acute Assessment and plan: Suspicious for UTI Started on Ceftriaxone Urine culture sent per chart Will follow - Subjective Interval history: Seen and evaluated with spouse at bedside NO new complains She still complained of feeling weakness, generalized. Awaiting PTOT eval , and SW or placement, which she is now agreeable to Her na is improving - Constitutional Vitals: Temp Pulse Resp BP Pulse Ox 98.0 F 95 16 93/64 90 02/26/17 06:49 02/26/17 06:49 02/26/17 06:49 02/26/17 06:49 02/26/17 06:49 General appearance: Present: A&O X 3, no acute distress, answers questions appropriately - Head Head exam: Present: atraumatic, normocephalic Additional comments: Seborrheic dermatitis of scalp - Eye Eye exam: Present: PERRL, conjuntiva pink, sclera anicteric Pupils: Present: PERRL - Neck Neck exam general surgery: Present: supple, trachea midline. Absent: lymphadenopathy - Respiratory Respiratory exam: Present: CTAB. Absent: accessory muscle use, rales, rhonchi, wheezes - Cardiovascular Cardiovascular exam: Present: RRR, +S1, +S2. Absent: diastolic murmur, gallop, rubs, systolic murmur - GI/Abdominal GI/Abdominal exam: Present: normal bowel sounds, soft, no peritoneal signs. Absent: distended, tenderness - Extremities Exam Extremities exam: Present: warm, radial pulses palpable and symmetrical. Absent : calf tenderness, cyanotic, pedal edema - Neurological Exam Neurological exam: Present: alert, oriented X3, no focal deficits - Skin Skin exam: Present: dry, intact Internal Medicine: Result - Labs CBC & Chem 7: 02/26/17 04:14 02/26/17 09:00 Labs: Short CBC 02/26/17 Range/Units 04:14 WBC 9.9 (4.3-11.1) K/mcL Hgb 12.0 (11.5-15.4) g/dL Hct 31.0 L (35.3-44.9) % Plt Count 203 (140-400) K/mcL Neutrophils # 7.2 (1.6-8.9) K/mcL BMP 02/26/17 02/26/17 02/26/17 00:09 02:03 04:14 Sodium 114 L* 114 L* 115 L* Potassium 3.3 L 3.5 3.2 L Chloride 80 L 82 L 82 L Carbon Dioxide 24 21 22 BUN 5 L 5 L 5 L Creatinine 0.71 0.59 0.57 Glucose 79 84 84 Calcium 9.0 9.1 9.0 02/26/17 02/26/17 05:40 09:00 Sodium 116 L* 117 L* Potassium 3.2 L 4.0 Chloride 81 L 85 L Carbon Dioxide 24 19 BUN 4 L 5 L Creatinine 0.63 0.63 Glucose 80 118 H Calcium 9.4 9.3 - ABG Interpretation ABG results: PT/INR, D-dimer PT 12.1 Seconds (9.4-12.1) 02/25/17 16:41 Consult Discharge Plan - Plan Referrals: Veronica Hayes MD [Primary Care Provider] -
[2017-02-26 11:30] LABS: BUN/Creatinine Ratio 6 (6-26); Calcium 8.7 mg/dL (8.6-10.8); Carbon Dioxide 22 mEq/L (19-29); Chloride 83 mEq/L (98-109); Glucose 135 mg/dL (70-99); Osmolality,Calculated 237 (280-300); Potassium 3.9 mEq/L (3.5-4.5); eGFR For African Americans > 60 (> 60); eGFR For Non-African Americans > 60 (> 60)
[2017-02-26 11:33] LABS: Blood Urea Nitrogen 4 mg/dL (7-20)
[2017-02-26 11:35] LABS: Sodium 114 mEq/L (136-145)
[2017-02-26 17:02] LABS: BUN/Creatinine Ratio 10 (6-26); Blood Urea Nitrogen 7 mg/dL (7-20); Calcium 8.7 mg/dL (8.6-10.8); Carbon Dioxide 24 mEq/L (19-29); Chloride 84 mEq/L (98-109); Glucose 112 mg/dL (70-99); Osmolality,Calculated 243 (280-300); eGFR For African Americans > 60 (> 60); eGFR For Non-African Americans > 60 (> 60)
[2017-02-26 17:05] LABS: Sodium 117 mEq/L (136-145)
[2017-02-26] MEDS: OLANZapine 10 MG TAB.RAPDIS PO SCH (21:11)
[2017-02-26 23:43] LABS: BUN/Creatinine Ratio 12 (6-26); Blood Urea Nitrogen 8 mg/dL (7-20); Calcium 8.5 mg/dL (8.6-10.8); Carbon Dioxide 24 mEq/L (19-29); Chloride 84 mEq/L (98-109); Glucose 103 mg/dL (70-99); Osmolality,Calculated 243 (280-300); Potassium 4.2 mEq/L (3.5-4.5); eGFR For African Americans > 60 (> 60); eGFR For Non-African Americans > 60 (> 60)
[2017-02-26 23:47] LABS: Sodium 117 mEq/L (136-145)
[2017-02-27] MEDS ORDERED: 0.9 % Sodium Chloride 1,000 ML IVC SCH (00:30)
[2017-02-27] MEDS: *HR* LORazepam 1 MG TABLET PO SCH ×4 (04:59→22:01)
[2017-02-27] MEDS: *HR* Heparin 5,000 UNIT/ML VIAL SQ SCH ×2 (05:00→18:05)
[2017-02-27] MEDS: LOXAPINE 10 MG PO SCH ×2 (07:36→10:21)
--- NOTE | 2017-02-27 07:57 | Nephrology Consult Note ---
Date of Encounter: 02/27/17 Time of Encounter: 07:55 Assessment and Plan (1) Hyponatremia Current Visit: Yes Status: Acute Patient presents with a clinical picture of euvolemic hyponatremia. Previous thyroid studies and adrenal studies have been unremarkable. I suspect her hyponatremia is a combination of being on Depakote as well as excessive fluid intake. By recommendation would be to discontinue the Depakote and get the input from psychiatry regarding alternative medications. In the meantime she should continue on fluid restriction. I would continue with normal saline infusion that she is currently on and continue to monitor her serum sodium. I suspect that she should continue to improve. (2) Bipolar disorder, curr episode mixed, severe, with psychotic features Current Visit: No Status: Acute History of Present Illness - History of Present Illness This is a 61-year-old female who was admitted with a history of weakness and falling. She was noted to have severe hyponatremia with a sodium of 108. She recently was hospitalized with the same issues. At that time she had a urine osmolality that ranged from 97-412. Initially she was thought to possibly have hyponatremia related to excessive fluid intake. The patient does console he requests increased fluid to drink. She also had been on Depakote for psychiatric issues. When she was admitted the last time that she had not been taking the Depakote. The time of discharge she was resumed on it. She now presents with a urine osmolality of 172. She has been placed on fluid restriction and has received IV fluids. Her sodium is improved up to 117. She continues to be on the Depakote. She also at the time of her last hospitalization was discharged on sodium chloride tablets 1 g twice a day. Currently the patient is requesting to go home. She is also requesting something to drink. Past Med Surg Social Fam HX - Past Medical History Medical history: CHF, COPD, hypertension Psychiatric history: schizophrenia, previous psychiatric hospitalization - Past Surgical History Surgical History: colostomy - Social History Smoking Status: Current every day smoker Smokeless Tobacco Status: No Alcohol use: none Drug use: none - Family History Mother Hx Family Endocrine Disorder: Yes (DM) Father Hx Family Neurologic Disorders: Yes (CVA) Medications and Allergies Metoprolol [Lopressor] 50 mg PO BID #60 tablet 03/01/15 [Rx] Calcium Carbonate [Calcium] 500 mg PO BID 02/10/17 [History] Ibuprofen [Motrin] 600 mg PO DAILY 02/10/17 [History] Nystatin POWDER [Nystop] 1 appl TP BID bottle 02/15/17 [Rx] OLANZapine [Zyprexa Zydis] 20 mg PO HS tab.rapdis 02/15/17 [Rx] Divalproex (12 HR) [Depakote (12 HR)] 500 mg PO BID 02/25/17 [History] LORazepam [Ativan] 1 mg PO Q6H 02/25/17 [History] Sodium Chloride [Sodium Chloride] 1 gm PO BID 02/26/17 [History] 3 Allergy/AdvReac Type Severity Reaction Status Date / Time No Known Drug Allergies Allergy See Verified 02/22/15 11:16 Comments Review of Systems Constitutional: as per HPI, weakness Eyes: bilateral: blurred vision (patient denies), diplopia (patient denies) Nose, mouth and throat: no dizziness, no headache(s) Cardiovascular: no chest pain, no palpitations Respiratory: no cough, no dyspnea Gastrointestinal: no abdominal pain, no change in bowel habits Musculoskeletal: no muscle weakness, no numbness Integumentary: no hirsutism, no striae Neurological: as per HPI, weakness Psychiatric: behavioral changes, no depression, no difficulty concentrating Endocrine: as per HPI Exam - Vital Signs Vital signs: Initial Vital Signs Temp Pulse Resp BP Pulse Ox 98.3 F 112 19 105/75 95 02/25/17 16:11 02/25/17 16:11 02/25/17 16:11 02/25/17 16:11 02/25/17 16:11 Vital Signs - Last 8 Hours Temp Pulse Resp BP Pulse Ox 02/27/17 07:25 97.9 F 88 18 99/73 96 02/27/17 05:00 101 02/27/17 03:30 98.4 F 95 18 94/69 97 Intake and Output 02/26/17 02/26/17 02/27/17 15:59 23:59 07:59 Intake Total 460 / 460 1020 / 1020 340 / 340 Output Total 525 / 525 0 / 0 Balance -65 / -65 1020 / 1020 340 / 340 Intake: IV Fluids 100 / 100 Rocephin 1,000 MG In Dextrose 5 100 / 100 % (Minibag+) 100 ML 100 ML @ 200 mls/hr IVPB Q24H [facility] Rx#: [id number] Oral 460 / 460 1020 / 1020 240 / 240 Output: Catheter 525 / 525 0 / 0 Other: Meal Lunch Dinner Percent of Meal Consumed 40% 15% Weight 69.5 kg Blood Glucose* 126 108 Patient Weight 02/27/17 23:59 Weight 69.5 kg - General Appearance Exam: Patient is alert but confused. She is very poor historian. Vital signs are stable. She is in no acute distress. She is receiving maintenance IV fluids. Lungs clear to auscultation. Heart regular rate and rhythm. Abdomen shows normal bowel sounds abridged masses, megaly or tenderness. There is no peripheral edema. Results - Lab Results 02/26/17 04:14 02/26/17 23:27 Most recent lab results Calcium 8.5 mg/dL (8.6-10.8) L 02/26/17 23:27 Magnesium 1.3 mg/dL (1.6-2.6) L 02/26/17 04:14 Urine Sodium < 20.0 mEq/L 02/25/17 16:30 Consult Discharge Plan - Plan Referrals: Veronica Hayes MD [Primary Care Provider] -
[2017-02-27 08:01] LABS: Basophils % 0.4 %; Eosinophils % 0.1 %; Hematocrit 30.6 % (35.3-44.9); Hemoglobin 11.3 g/dL (11.5-15.4); Immature Granulocytes % 1.5 % (0-4); Lymphocytes # 1.5 K/mcL (0.6-4.6); Lymphocytes % 22.6 %; Mean Corpuscular HGB Conc 36.9 g/dL (31.6-35.5); Mean Corpuscular Hemoglobin 29.8 pg (28.0-33.3); Mean Corpuscular Volume 80.7 fL (83.0-100.0); Mean Platelet Volume 9.7 fL (9.4-12.4); Monocytes # 0.7 K/mcL (0.0-1.3); Monocytes % 10.5 %; Neutrophils # 4.4 K/mcL (1.6-8.9); Platelet Count 185 K/mcL (140-400); Red Blood Count 3.79 M/mcL (3.82-4.97); Red Cell Distribution Width 13.1 % (11.5-14.5); Segmented Neutrophils % 64.9 %
[2017-02-27] MEDS: CALCIUM/VITAMIN D PO SCH ×2 (08:12→20:11)
[2017-02-27] MEDS: Divalproex (12 HR) 500 MG TABLET PO SCH ×2 (08:12→20:10)
[2017-02-27] MEDS: Nystatin POWDER 30 GM BOTTLE TP SCH ×2 (08:13→20:11)
[2017-02-27 08:15] LABS: BUN/Creatinine Ratio 10 (6-26); Blood Urea Nitrogen 6 mg/dL (7-20); Calcium 8.3 mg/dL (8.6-10.8); Carbon Dioxide 25 mEq/L (19-29); Chloride 88 mEq/L (98-109); Glucose 90 mg/dL (70-99); Osmolality,Calculated 249 (280-300); Potassium 3.8 mEq/L (3.5-4.5); Sodium 121 mEq/L (136-145); eGFR For African Americans > 60 (> 60); eGFR For Non-African Americans > 60 (> 60)
--- NOTE | 2017-02-27 09:04 | Internal Med Progress Note ---
Date of Encounter: 02/27/17 Time of Encounter: 09:04 - Assessment and plan (1) Chronic schizophrenia Current Visit: Yes Status: Chronic Assessment and plan: Continue home meds, discussed with psychiatrist Dr. 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 Improved by 4 meq pvernight D/C IVF Continue to monitor q6h Renal eval is appreciated Continue fluid restriction (3) Weakness Current Visit: Yes Status: Acute Assessment and plan: PTOT eval Last admission was recommended for placement SW eval fall precautions (4) DVT prophylaxis Current Visit: Yes Status: Acute Assessment and plan: Heparin SQ (5) Hypertension Current Visit: Yes Status: Chronic Assessment and plan: BP borderline low, MAP >70 Resume Metoprolol 25mg BID Qualifiers: Hypertension type: essential hypertension Qualified Code(s): I10 - Essential (primary) hypertension (6) UTI (urinary tract infection) due to Enterococcus Current Visit: Yes Status: Acute Assessment and plan: Urine culture with enterococcus Continue ceftriaxone Follow final reports - Subjective Interval history: Seen and evaluated at bedside Feeling better today na is improving - Constitutional Vitals: Temp Pulse Resp BP Pulse Ox 97.9 F 88 18 99/73 96 02/27/17 07:25 02/27/17 07:25 02/27/17 07:25 02/27/17 07:25 02/27/17 07:25 General appearance: Present: disheveled, A&O X 3, pleasant, no acute distress, answers questions appropriately - Head Head exam: Present: atraumatic, normocephalic - Eye Eye exam: Present: PERRL, conjuntiva pink, sclera anicteric Pupils: Present: PERRL - Neck Neck exam general surgery: Present: supple, trachea midline. Absent: lymphadenopathy - Respiratory Respiratory exam: Present: CTAB. Absent: accessory muscle use, rales, rhonchi, wheezes - Cardiovascular Cardiovascular exam: Present: RRR, +S1, +S2. Absent: diastolic murmur, gallop, rubs, systolic murmur - GI/Abdominal GI/Abdominal exam: Present: normal bowel sounds, soft, no peritoneal signs. Absent: distended, tenderness - Extremities Exam Extremities exam: Present: warm, radial pulses palpable and symmetrical. Absent : calf tenderness, cyanotic, pedal edema - Neurological Exam Neurological exam: Present: alert, CN II-XII intact, oriented X3, no focal deficits. Absent: pronater drift, facial droop, speech deficit - Skin Skin exam: Present: dry, intact Internal Medicine: Result - Labs CBC & Chem 7: 02/27/17 07:20 02/27/17 07:20 Labs: Short CBC 02/27/17 Range/Units 07:20 WBC 6.7 (4.3-11.1) K/mcL Hgb 11.3 L (11.5-15.4) g/dL Hct 30.6 L (35.3-44.9) % Plt Count 185 (140-400) K/mcL Neutrophils # 4.4 (1.6-8.9) K/mcL BMP 02/26/17 02/26/17 02/26/17 09:00 10:48 16:44 Sodium 117 L* 114 L* 117 L* Potassium 4.0 3.9 4.0 Chloride 85 L 83 L 84 L Carbon Dioxide 19 22 24 BUN 5 L 4 L 7 Creatinine 0.63 0.63 0.67 Glucose 118 H 135 H 112 H Calcium 9.3 8.7 8.7 02/26/17 02/27/17 23:27 07:20 Sodium 117 L* 121 L Potassium 4.2 3.8 Chloride 84 L 88 L Carbon Dioxide 24 25 BUN 8 6 L Creatinine 0.67 0.59 Glucose 103 H 90 Calcium 8.5 L 8.3 L - ABG Interpretation ABG results: PT/INR, D-dimer PT 12.1 Seconds (9.4-12.1) 02/25/17 16:41 Consult Discharge Plan - Plan Referrals: Veronica Hayes MD [Primary Care Provider] -
--- NOTE | 2017-02-27 18:22 | Electrocardiograph Report ---
[place] [id number] Test Date: 2017-02-25 Pat Name: Amita Vazquez Department: 102 Room: 2N14 Gender: F [employer]: [facility] : 1955 Requested By: Toby Valadez Order Number: [id number] Reading MD: Ulysses Bradley MD Measurements Intervals [place] Rate: 114 P: 55 SC: 132 QRS: 47 QRSD: 103 T: 36 QT: 335 QTc: 403 Interpretive Statements SINUS TACHYCARDIA LEFT ATRIAL ENLARGEMENT Electronically Signed On 02-27-2017 18:20:35 EDT by Ulysses Bradley MD
[2017-02-27] MEDS: OLANZapine 10 MG TAB.RAPDIS PO SCH (20:11)
[2017-02-27] MEDS ORDERED: Ziprasidone injection 20 MG/ML VIAL IM ONE (20:42)
[2017-02-28] MEDS: *HR* LORazepam 1 MG TABLET PO SCH ×4 (03:41→21:36)
[2017-02-28 03:50] LABS: Basophils # 0.1 K/mcL (0.0-0.2); Basophils % 0.8 %; Eosinophils % 0.3 %; Hematocrit 29.2 % (35.3-44.9); Hemoglobin 10.5 g/dL (11.5-15.4); Lymphocytes # 1.9 K/mcL (0.6-4.6); Lymphocytes % 28.8 %; Mean Corpuscular Hemoglobin 29.8 pg (28.0-33.3); Mean Platelet Volume 9.4 fL (9.4-12.4); Monocytes # 0.7 K/mcL (0.0-1.3); Neutrophils # 3.8 K/mcL (1.6-8.9); Platelet Count 175 K/mcL (140-400); Red Blood Count 3.52 M/mcL (3.82-4.97); Red Cell Distribution Width 13.2 % (11.5-14.5); Segmented Neutrophils % 58.1 %
[2017-02-28 04:01] LABS: BUN/Creatinine Ratio 10 (6-26); Blood Urea Nitrogen 6 mg/dL (7-20); Calcium 8.1 mg/dL (8.6-10.8); Carbon Dioxide 25 mEq/L (19-29); Chloride 92 mEq/L (98-109); Glucose 90 mg/dL (70-99); Osmolality,Calculated 255 (280-300); Sodium 124 mEq/L (136-145); eGFR For African Americans > 60 (> 60); eGFR For Non-African Americans > 60 (> 60)
[2017-02-28] MEDS: *HR* Heparin 5,000 UNIT/ML VIAL SQ SCH ×2 (05:09→17:31)
[2017-02-28] MEDS: LOXAPINE 10 MG PO SCH ×2 (09:28→11:22)
[2017-02-28] MEDS: CALCIUM/VITAMIN D PO SCH (09:28)
[2017-02-28] MEDS: Divalproex (12 HR) 500 MG TABLET PO SCH ×2 (10:52→21:18)
[2017-02-28] MEDS: Nystatin POWDER 30 GM BOTTLE TP SCH ×2 (10:52→21:19)
--- NOTE | 2017-02-28 10:57 | Internal Med Progress Note ---
Date of Encounter: 02/28/17 Time of Encounter: 10:55 - Assessment and plan (1) Chronic schizophrenia Current Visit: Yes Status: Chronic Assessment and plan: Continue home meds, discussed with psychiatrist Dr. 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, also psych meds Na on arirval at 102, 108, now 117-improved by 9meq in 36 hrs Na improving,now 124 Daily Chem Renal eval is appreciated Continue fluid restriction (3) Weakness Current Visit: Yes Status: Acute Assessment and plan: PTOT eval Last admission was recommended for placement SW eval fall precautions (4) DVT prophylaxis Current Visit: Yes Status: Acute Assessment and plan: Heparin SQ (5) Hypertension Current Visit: Yes Status: Chronic Assessment and plan: BP borderline low, MAP >70 Resume Metoprolol 25mg BID Qualifiers: Hypertension type: essential hypertension Qualified Code(s): I10 - Essential (primary) hypertension (6) UTI (urinary tract infection) due to Enterococcus Current Visit: Yes Status: Acute Assessment and plan: Urine culture with enterococcus Has received 2 days of cefriaxoxne Sensitivity noted Change to Doxycycline po bid to complete 7 days of therapy - Subjective Interval history: Seen and evaluated at bedside Feeling better today na is improving - Constitutional Vitals: Temp Pulse Resp BP Pulse Ox 98.4 F 92 16 95/58 99 02/28/17 09:05 02/28/17 09:05 02/28/17 09:05 02/28/17 09:05 02/28/17 09:05 General appearance: Present: disheveled, A&O X 3, pleasant, no acute distress, answers questions appropriately - Head Head exam: Present: atraumatic, normocephalic - Eye Eye exam: Present: PERRL, conjuntiva pink, sclera anicteric Pupils: Present: PERRL - Neck Neck exam general surgery: Present: supple, trachea midline. Absent: lymphadenopathy - Respiratory Respiratory exam: Present: CTAB. Absent: accessory muscle use, rales, rhonchi, wheezes - Cardiovascular Cardiovascular exam: Present: RRR, +S1, +S2. Absent: diastolic murmur, gallop, rubs, systolic murmur - GI/Abdominal GI/Abdominal exam: Present: normal bowel sounds, soft, no peritoneal signs. Absent: distended, tenderness - Extremities Exam Extremities exam: Present: warm, radial pulses palpable and symmetrical. Absent : calf tenderness, cyanotic, pedal edema - Neurological Exam Neurological exam: Present: alert, CN II-XII intact, oriented X3, no focal deficits. Absent: pronater drift, facial droop, speech deficit - Skin Skin exam: Present: dry, intact Internal Medicine: Result - Labs CBC & Chem 7: 02/28/17 03:36 02/28/17 03:36 Labs: Short CBC 02/28/17 Range/Units 03:36 WBC 6.5 (4.3-11.1) K/mcL Hgb 10.5 L (11.5-15.4) g/dL Hct 29.2 L (35.3-44.9) % Plt Count 175 (140-400) K/mcL Neutrophils # 3.8 (1.6-8.9) K/mcL BMP 02/27/17 02/28/17 14:33 03:36 Sodium 122 L 124 L Potassium 4.0 Chloride 92 L Carbon Dioxide 25 BUN 6 L Creatinine 0.61 Glucose 90 Calcium 8.1 L - ABG Interpretation ABG results: PT/INR, D-dimer PT 12.1 Seconds (9.4-12.1) 02/25/17 16:41 - VTE Documentation of Mechanical Device: Intermittent pneumatic compression device Consult Discharge Plan - Plan Referrals: Ye Gibbons, PAC [Physician Assembly Hand] - 03/07/17 8:20 am
[2017-02-28] MEDS ORDERED: Doxycycline 100 MG CAPSULE PO ONE (10:58)
--- NOTE | 2017-02-28 12:35 | Nephrology Progress Note ---
Date of Encounter: 02/28/17 Time of Encounter: 12:00 - Assessment and Plan (1) Hyponatremia Current Visit: Yes Status: Acute Euvolemic Hyponatremia most likely related to depakote and increased fluid intake. Sodium slow improvement 124. Will continue to follow. Continue fluid restriction. recommend Psychiatry use alternative medication to Depakote. Subjective Interval history: Laying in bed, family member at bedside. Tearing up over physical condition. States she has no quality of life. Fluid restriction. Documented urine output 1600 cc. Objective - Vital Signs Vital signs: Vital Signs Temp Pulse Resp BP Pulse Ox 02/28/17 12:05 98.6 F 70 13 103/74 96 02/28/17 11:23 66 02/28/17 09:05 98.4 F 92 16 95/58 99 02/28/17 07:43 76 02/28/17 07:25 98.2 F 68 10 96/64 93 02/28/17 07:15 68 02/28/17 03:49 97.0 F L 70 18 101/68 93 02/27/17 22:58 98.9 F 73 16 104/69 94 02/27/17 22:08 98 109/78 02/27/17 21:36 96 105/84 02/27/17 20:36 101 02/27/17 20:14 97.4 F L 107 18 104/90 96 02/27/17 15:32 98.6 F 97 15 104/69 97 Intake and Output 02/27/17 02/28/17 02/28/17 23:59 07:59 15:59 Intake Total 440 / 440 200 / 200 720 / 720 Output Total 700 / 700 100 / 100 150 / 150 Balance -260 / -260 100 / 100 570 / 570 Intake: IV Fluids 100 / 100 Rocephin 1,000 MG In Dextrose 5 100 / 100 % (Minibag+) 100 ML 100 ML @ 200 mls/hr IVPB Q24H [facility] Rx#: [id number] Oral 340 / 340 200 / 200 720 / 720 Output: Catheter 700 / 700 100 / 100 150 / 150 Other: Meal Dinner Breakfast Percent of Meal Consumed 90% 50% Weight 69.7 kg Patient Weight 02/28/17 23:59 Weight 69.7 kg - General Appearance General appearance: Present: well-developed, well-nourished, appears started age EENT: Present: mucous membranes moist Neck: Present: no JVD Respiratory: Present: clear Cardiology: Present: edema, regular rate, regular rhythm Additional Comments: mild Gastrointestinal: Present: normoactive bowel sounds, no tenderness Integumentary: Present: warm and dry Neurologic: Present: alert and oriented x3 Psychiatric: Present: mood/affect appropriate, cooperative - Lab 02/28/17 03:36 02/28/17 03:36 Most recent lab results Calcium 8.1 mg/dL (8.6-10.8) L 02/28/17 03:36 Magnesium 1.3 mg/dL (1.6-2.6) L 02/26/17 04:14 Urine Sodium < 20.0 mEq/L 02/25/17 16:30 - VTE Documentation of Mechanical Device: Intermittent pneumatic compression device Consult Discharge Plan - Plan Referrals: Ye Gibbons, PAC [Physician Printing Sales Representative] - 03/07/17 8:20 am
[2017-02-28] MEDS ORDERED: Haloperidol Lactate 5 MG/ML VIAL IVP PRN (14:57)
[2017-02-28] MEDS: Doxycycline 100 MG CAPSULE PO SCH (21:17)
[2017-02-28] MEDS: OLANZapine 10 MG TAB.RAPDIS PO SCH (21:18)
[2017-03-01 04:39] LABS: BUN/Creatinine Ratio 12 (6-26); Blood Urea Nitrogen 7 mg/dL (7-20); Calcium 8.7 mg/dL (8.6-10.8); Carbon Dioxide 24 mEq/L (19-29); Chloride 97 mEq/L (98-109); Glucose 93 mg/dL (70-99); Osmolality,Calculated 266 (280-300); Potassium 3.8 mEq/L (3.5-4.5); Sodium 129 mEq/L (136-145); eGFR For African Americans > 60 (> 60); eGFR For Non-African Americans > 60 (> 60)
[2017-03-01] MEDS: *HR* LORazepam 1 MG TABLET PO SCH ×4 (06:23→23:26)
[2017-03-01] MEDS: *HR* Heparin 5,000 UNIT/ML VIAL SQ SCH ×2 (06:24→16:53)
[2017-03-01] MEDS: Divalproex (12 HR) 500 MG TABLET PO SCH ×2 (07:56→20:28)
[2017-03-01] MEDS: Doxycycline 100 MG CAPSULE PO SCH ×2 (07:56→20:28)
[2017-03-01] MEDS: Nystatin POWDER 30 GM BOTTLE TP SCH ×2 (07:57→23:27)
--- NOTE | 2017-03-01 08:28 | Nephrology Progress Note ---
Date of Encounter: 03/01/17 Time of Encounter: 08:26 - Assessment and Plan (1) Hyponatremia Current Visit: Yes Status: Acute Patient has euvolemic hyponatremia in the setting of Depakote, and increased fluid intake. Her serum sodium is improving with fluid restriction. She continues on sodium chloride tablets. She remains on Depakote. I still think that the Depakote should be discontinued if possible. Psychiatry should be consulted. If she remains on Depakote, facial continue to be readmitted with severe hyponatremia. (2) Bipolar disorder, curr episode mixed, severe, with psychotic features Current Visit: No Status: Acute Subjective Interval history: Patient is alert but remains confused. Serum sodium continues to improve. Objective - Vital Signs Vital signs: Vital Signs Temp Pulse Resp BP Pulse Ox 03/01/17 08:00 97.9 F 77 16 115/78 100 03/01/17 06:49 98.7 F 72 17 99/73 100 03/01/17 03:52 98.7 F 77 16 95/73 93 02/28/17 23:11 98.8 F 66 16 103/71 93 02/28/17 21:45 82 02/28/17 21:11 98.9 F 76 16 107/80 95 02/28/17 15:09 74 02/28/17 12:05 98.6 F 70 13 103/74 96 02/28/17 11:23 66 02/28/17 09:05 98.4 F 92 16 95/58 99 Intake and Output 02/28/17 03/01/17 03/01/17 23:59 07:59 15:59 Intake Total 360 / 360 240 / 240 120 / 120 Output Total 700 / 700 650 / 650 600 / 600 Balance -340 / -340 -410 / -410 -480 / -480 Intake: Oral 360 / 360 240 / 240 120 / 120 Output: Urine 0 / 0 Catheter 700 / 700 650 / 650 600 / 600 Other: Stool Size Large Stool Consistency liquid Stool Color Brown # Voids 0 # Bowel Movements 0 Weight 70.6 kg Patient Weight 03/01/17 23:59 Weight 70.6 kg - General Appearance Exam: Patient is alert but confused. She is in no acute distress. Lungs clear to auscultation. Heart regular rhythm. Abdomen is benign. There is no peripheral edema. - Lab 02/28/17 03:36 03/01/17 03:58 Most recent lab results Calcium 8.7 mg/dL (8.6-10.8) 03/01/17 03:58 Magnesium 1.3 mg/dL (1.6-2.6) L 02/26/17 04:14 Urine Sodium < 20.0 mEq/L 02/25/17 16:30 - VTE Documentation of Mechanical Device: Intermittent pneumatic compression device Consult Discharge Plan - Plan Referrals: Ye Gibbons, PAC [Physician Strategy Lead] - 03/07/17 8:20 am
[2017-03-01] MEDS: LOXAPINE 10 MG PO SCH ×2 (11:04→11:09)
--- NOTE | 2017-03-01 16:28 | Internal Med Progress Note ---
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 Roe, patient is doing well on her current regimen and they do not recommend stopping her depakote, continue same meds Psychiatry consult pending (3) UTI (urinary tract infection) due to Enterococcus Current Visit: Yes Status: Acute Assessment and plan: Urine culture with enterococcus Has received 2 days of cefriaxoxne Change to Doxycycline po bid to complete 7 days of therapy (4) Hypertension Current Visit: Yes Status: Chronic Assessment and plan: Essential hypertension, controlled, monitor Continue Metoprolol 25mg BID Qualifiers: Hypertension type: essential hypertension Qualified Code(s): I10 - Essential (primary) hypertension (5) DVT prophylaxis Current Visit: Yes Status: Acute Assessment and plan: Continue Heparin SQ - Time Spent With Patient 25 - 35 minutes - Subjective Interval history: Examined this morning. Patient is awake and alert. Not in any distress. Denies chest pain or shortness of breath. No fever. Hemodynamically stable. Sodium level is now improved. Anticipate discharge to residential in a.m. Psychiatry consult pending. No other acute events or complaints. - Constitutional Vitals: Temp Pulse Resp BP Pulse Ox 99.0 F 84 17 133/88 98 03/01/17 16:11 03/01/17 16:11 03/01/17 16:11 03/01/17 16:11 03/01/17 16:11 General appearance: Present: disheveled, A&O X 3, pleasant, no acute distress, answers questions appropriately - Head Head exam: Present: atraumatic - Eye Eye exam: Present: EOMI - ENT ENT exam: Present: mucous membranes moist - Respiratory Respiratory exam: Present: CTAB. Absent: rales, rhonchi, wheezes, tachypnea - Cardiovascular Cardiovascular exam: Present: RRR, +S1, +S2 - GI/Abdominal GI/Abdominal exam: Present: soft. Absent: distended, firm, guarding, tenderness - Extremities Exam Extremities exam: Present: radial pulses palpable and symmetrical. Absent: calf tenderness, cyanotic, pedal edema - Neurological Exam Neurological exam: Present: alert, oriented X3, no focal deficits. Absent: facial droop, speech deficit Internal Medicine: Result - Labs CBC & Chem 7: 02/28/17 03:36 03/01/17 03:58 Labs: BMP 03/01/17 03:58 Sodium 129 L Potassium 3.8 Chloride 97 L Carbon Dioxide 24 BUN 7 Creatinine 0.60 Glucose 93 Calcium 8.7 - ABG Interpretation ABG results: PT/INR, D-dimer PT 12.1 Seconds (9.4-12.1) 02/25/17 16:41 - VTE Documentation of Mechanical Device: Intermittent pneumatic compression device Consult Discharge Plan - Plan Referrals: Ye Gibbons, PAC [Physician Public Health Representative] - 03/07/17 8:20 am
[2017-03-01] MEDS: OLANZapine 10 MG TAB.RAPDIS PO SCH (20:27)
[2017-03-02] MEDS: *HR* LORazepam 1 MG TABLET PO SCH ×4 (05:24→22:47)
[2017-03-02] MEDS: *HR* Heparin 5,000 UNIT/ML VIAL SQ SCH ×2 (05:24→17:38)
--- NOTE | 2017-03-02 07:50 | Nephrology Progress Note ---
Date of Encounter: 03/02/17 Time of Encounter: 07:47 - Assessment and Plan (1) Hyponatremia Current Visit: Yes Status: Acute Patient has euvolemic hyponatremia in the setting of Depakote, and increased fluid intake. Her serum sodium is improving with fluid restriction. She continues on sodium chloride tablets. I remain concerned that the patient may have recurrent hyponatremia she remains on the Depakote. (2) Bipolar disorder, curr episode mixed, severe, with psychotic features Current Visit: No Status: Acute Subjective Interval history: The patient is alert but confused. Her sodium continues to improve. Most recent sodium is 129. Objective - Vital Signs Vital signs: Vital Signs Temp Pulse Resp BP Pulse Ox 03/02/17 07:20 97.3 F L 75 17 101/73 100 03/02/17 03:49 97.6 F 70 17 131/88 97 03/02/17 00:39 98.1 F 74 16 123/82 98 03/01/17 19:46 98.5 F 78 16 119/83 100 03/01/17 16:11 99.0 F 84 17 133/88 98 03/01/17 11:02 98.3 F 80 17 118/81 100 03/01/17 08:00 97.9 F 77 16 115/78 100 Intake and Output 03/01/17 03/01/17 03/02/17 15:59 23:59 07:59 Intake Total 120 / 120 780 / 780 30 / 30 Output Total 600 / 600 Balance -480 / -480 780 / 780 30 / 30 Intake: Oral 120 / 120 780 / 780 30 / 30 Output: Catheter 600 / 600 Other: Meal Dinner Percent of Meal Consumed 5% - General Appearance Exam: Patient is alert. She is confused. She says she wants to go home. Lungs diminished breath sounds otherwise clear. Heart regular rate and rhythm. Abdomen is benign. There is no peripheral edema. - Lab 02/28/17 03:36 03/01/17 03:58 Most recent lab results Calcium 8.7 mg/dL (8.6-10.8) 03/01/17 03:58 Magnesium 1.3 mg/dL (1.6-2.6) L 02/26/17 04:14 Urine Sodium < 20.0 mEq/L 02/25/17 16:30 - VTE Documentation of Mechanical Device: Intermittent pneumatic compression device Consult Discharge Plan - Plan Referrals: Ye Gibbons, PAC [Physician Interior Plant Caretaker] - 03/07/17 8:20 am
[2017-03-02] MEDS: Doxycycline 100 MG CAPSULE PO SCH ×2 (08:50→20:33)
[2017-03-02] MEDS: Divalproex (12 HR) 500 MG TABLET PO SCH ×2 (08:50→20:33)
[2017-03-02] MEDS: Nystatin POWDER 30 GM BOTTLE TP SCH ×2 (08:51→20:34)
--- NOTE | 2017-03-02 11:17 | Discharge Summary ---
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 Roe, patient is doing well on her current regimen and they do not recommend stopping her depakote, continue same meds Follow-up with psychiatry as outpatient (3) UTI (urinary tract infection) due to Enterococcus Priority: Primary Status: Acute Comments: Urine culture with enterococcus Has received 2 days of cefriaxoxne Change to Doxycycline po bid to complete 7 days of therapy (4) Hypertension Priority: Secondary Status: Chronic Comments: Essential hypertension, controlled, monitor Continue Metoprolol 25mg BID Qualifiers: Hypertension type: essential hypertension Qualified Code(s): I10 - Essential (primary) hypertension (5) Tobacco abuse Priority: Primary Status: Chronic Comments: Counseled about cessation, nicotine patch - Discharge Medications Prescriptions: Doxycycline 100 mg PO BID 7 Days #7 capsule Nicotine Patch [Nicoderm] 21 mg TD DAILY #30 patch.td24 Home Medications: Metoprolol [Lopressor] 50 mg PO BID #60 tablet 03/01/15 [Rx] Calcium Carbonate [Calcium] 500 mg PO BID 02/10/17 [History] Ibuprofen [Motrin] 600 mg PO DAILY 02/10/17 [History] Nystatin POWDER [Nystop] 1 appl TP BID bottle 02/15/17 [Rx] OLANZapine [Zyprexa Zydis] 20 mg PO HS tab.rapdis 02/15/17 [Rx] Divalproex (12 HR) [Depakote (12 HR)] 500 mg PO BID 02/25/17 [History] LORazepam [Ativan] 1 mg PO Q6H 02/25/17 [History] Sodium Chloride 1 gm PO BID 02/26/17 [History] Doxycycline 100 mg PO BID 7 Days #7 capsule 03/02/17 [Rx] Nicotine Patch [Nicoderm] 21 mg TD DAILY #30 patch.td24 03/02/17 [Rx] Allergies/Adverse Reactions: 3 Allergy/AdvReac Type Severity Reaction Status Date / Time No Known Drug Allergies Allergy See Verified 02/22/15 11:16 Comments Date of admission: 02/25/17 22:19 Primary care physician: Veronica Hayes Consults: 02/26/17 07:13 Consult to Nephrology [CONS] Routine Consulting Provider: [facility] Reason for Consult: Hyponatremia Call Completed: Yes 02/26/17 11:29 Consult to Occupational Therapy [CONS] Routine Comment: Evaluate, develop and implement POC Reason for Consult: Deconditioned Consult to Physical Therapy [CONS] Routine Comment: Evaluate, develop and implement POC Reason for Consult: Deconditioned 02/26/17 12:09 Consult to Electric Tool Repairer [CONS] Routine Reason for SW Consult: discharge planning, unable to care for patient. 03/01/17 16:26 Consult to Psychiatry [CONS] Routine Consulting Provider: Psychiatry Sushma Reason for Consult: Schizophrenia, may need to change Depakote Call Completed: No Anticipated date of discharge: 03/02/17 - Patient Status Disposition: Home Health Service Condition: Fair Functional capacity at discharge: independent ambulation Overall status at discharge: patient is progressing back to baseline - Discharge Instructions Follow Up With: Simeon Roe MD [Non-Partnered Physician] - (patient will follow up with [facility] P[facility] ) Ye Gibbons PAC [Physician Wheel Installer] - 03/07/17 8:20 am - Diet and Activity Activity: increase activity as tolerated, resume usual activities as tolerated Diet: advance to your usual diet Hospital course: Ms. Vazquez is a 61 year old female with past medical history of CHF, COPD, hypertension, schizophrenia and chronic hyponatremia. Patient presented to the ED with complaints of generalized weakness. Patient also had difficulty walking. She complained of bilateral numbness in feet. She was found to be severely hyponatremic with a sodium level of 108. 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 She is on a fluid prescription of 1500 mL per day. She was also started on normal saline. Sodium correction was 8-10 mEq within 24 hours. Nephrology was following the patient. Sodium level was slowly corrected and is now back to baseline. Nephrology and recommended to discontinue Depakote in view of hyponatremia. Psychiatry is also evaluated the patient. They have recommended to continue Depakote if patient is going to ECF, and then patient can be slowly tapered off the medication. Patient is currently tolerating oral diet well and ambulating with some assistance. Her mental status seems to be back to baseline. Her sodium level was also at baseline. Generalized weakness has improved. Patient was started on empiric IV Rocephin for UTI. Cultures grew enterococcus which was pansensitive. Patient has been continued on doxycycline by mouth for 7 days. Patient and her have been explained about her condition and plan of care in detail. They understood and agreed. No unanswered questions. Patient is being discharged in a stable condition. Time spent discussing smoking cessation with patient: 3 to 10 minutes - Time Spent with Patient Total time spent providing and/or coordinating discharge services: Greater than 30 minutes - Constitutional Vitals: Temp Pulse Resp BP Pulse Ox 98.2 F 84 17 107/74 97 03/02/17 11:01 03/02/17 11:01 03/02/17 11:01 03/02/17 11:01 03/02/17 11:01 General appearance: Present: disheveled, A&O X 3, pleasant, no acute distress, answers questions appropriately - Head Head exam: Present: atraumatic - Eye Eye exam: Present: EOMI - ENT ENT exam: Present: mucous membranes moist - Respiratory Respiratory exam: Present: CTAB. Absent: rales, rhonchi, wheezes, tachypnea - Cardiovascular Cardiovascular exam: Present: RRR, +S1, +S2 - GI/Abdominal GI/Abdominal exam: Present: soft. Absent: distended, firm, guarding, tenderness - Extremities Exam Extremities exam: Present: radial pulses palpable and symmetrical. Absent: calf tenderness, cyanotic, pedal edema - Neurological Exam Neurological exam: Present: alert, oriented X3, no focal deficits. Absent: facial droop, speech deficit - VTE Documentation of Mechanical Device: Intermittent pneumatic compression device
--- NOTE | 2017-03-02 11:21 | Physician Discharge Referral ---
Home Health/Hosp Referral Info Transfer to: Home Health Provider in Charge Post Discharge: PCP - Diagnosis (1) Hyponatremia Priority: Primary Status: Acute (2) Chronic schizophrenia Priority: Primary Status: Chronic (3) UTI (urinary tract infection) due to Enterococcus Priority: Primary Status: Acute (4) Hypertension Priority: Primary Status: Chronic (5) Tobacco abuse Priority: Primary Status: Chronic - Respiratory Orders Smoking Cessation: Smoking cessation has been advised. For more information, call the [place] Tobacco Quit Line at 8-795-MUMX-NOW. - Diet/Nutrition Diet/Nutrition Orders: Regular - Activity Activity Orders: Ambulate - Services Needed Following services are medically necessary services: Nursing, Physical Therapy - Transfer Medications Prescriptions: Doxycycline 100 mg PO BID 7 Days #7 capsule Nicotine Patch [Nicoderm] 21 mg TD DAILY #30 patch.td24 Home Medications: Metoprolol [Lopressor] 50 mg PO BID #60 tablet 03/01/15 [Rx] Calcium Carbonate [Calcium] 500 mg PO BID 02/10/17 [History] Ibuprofen [Motrin] 600 mg PO DAILY 02/10/17 [History] Nystatin POWDER [Nystop] 1 appl TP BID bottle 02/15/17 [Rx] OLANZapine [Zyprexa Zydis] 20 mg PO HS tab.rapdis 02/15/17 [Rx] Divalproex (12 HR) [Depakote (12 HR)] 500 mg PO BID 02/25/17 [History] LORazepam [Ativan] 1 mg PO Q6H 02/25/17 [History] Sodium Chloride 1 gm PO BID 02/26/17 [History] Doxycycline 100 mg PO BID 7 Days #7 capsule 03/02/17 [Rx] Nicotine Patch [Nicoderm] 21 mg TD DAILY #30 patch.td24 03/02/17 [Rx] Allergies/Adverse Reactions: 3 Allergy/AdvReac Type Severity Reaction Status Date / Time No Known Drug Allergies Allergy See Verified 02/22/15 11:16 Comments Certification: Further, I certify that my clinical findings support that this patient is homebound (i.e. absences from home require considerable and taxing effort and are for medical reasons or adventism services or infrequently or short duration when for other reasons) because: Homebound Reason: Patient requires assistance of a person or device to safely leave home Attestation: My signature below is to certify that this patient is under my care and that I, or nurse practitioner, or a physician's transport assistant working with me, has a face-to -face encounter with this patient.
--- NOTE | 2017-03-02 14:21 | Consult Note ---
Date of Encounter: 03/02/17 Time of Encounter: 13:45 Assessment & Recommendation (1) Schizophrenia, paranoid, chronic with acute exacerbation Current visit: No Status: Chronic Assessment & Recommendation: 1. Patient is showing improvement in her mental status with regular home medication 2. Regarding current Depakote possible contribution to hyponatremia as a side effect. Nephrology consultation and recommendation reviewed and at this time I would recommend maintaining the current dose of Depakote until patient is placed in a facility or discharged and at that time the Depakote can be tapered off over. Other days and then replaced was almost more stabilizer as can be recommended by her outpatient psychiatrist. I do not believe that Depakote is causing the hyponatremia since patient has been taking Depakote for extended period of time and hyponatremia presented in the last hospitalization and she was reported noncompliant with her medication this would be further evaluated and follow-ups. Thank you for consultation. History of Present Illness Patient: known to practice within the last 3 years Requesting Physician: Erik Sen MD Reason for consult: Schizophrenia and medication changes History of present illness: Ms. Vazquez is a 61 year old female admitted to the hospital for evaluation treatment for hyponatremia and weakness and hypertension. Patient also has a history of chronic schizophrenia and was reported to be noncompliant with medication and has been having excess or probation of psychosis with paranoid delusion and agitation. Psychiatric consultation was requested regarding medication and agitation. On review of the chart patient was seen in a psychiatric consultation on 02/14/2017 and diagnosis or condition were reviewed at that time patient was noncompliant with his medication or outpatient mental health treatment and recommendation was for her to start on medication and referred follow-up as an outpatient. At this time patient is reported to be having occasional episodes of agitation otherwise she is compliant and her sodium is improving and she is being stabilized at this time. She the treatment team was having discussion with the family regarding disposition and family was interested in patient returning home and there was some suggestion of patient may benefit from long-term care placement or geropsych unit after medical stabilization. CC: Erik Sen MD Past Med Surg Social Fam HX - Past Medical History Medical history: CHF, COPD, hypertension - Past Psychiatric History Psychiatric history: Reports: schizophrenia, previous psychiatric hospitalization Past psychiatric history details: Most recent psychiatric hospitalization was on 02/23/2015 with diagnosis of schizophrenia chronic paranoid type at [facility] - Past Surgical History Surgical History: colostomy - Social History Smoking Status: Current every day smoker Smokeless Tobacco Status: No Alcohol use: none Drug use: none - Family History Mother Hx Family Endocrine Disorder: Yes (DM) Father Hx Family Neurologic Disorders: Yes (CVA) Medications & Allergies Metoprolol [Lopressor] 50 mg PO BID #60 tablet 03/01/15 [Rx] Calcium Carbonate [Calcium] 500 mg PO BID 02/10/17 [History] Ibuprofen [Motrin] 600 mg PO DAILY 02/10/17 [History] Nystatin POWDER [Nystop] 1 appl TP BID bottle 02/15/17 [Rx] OLANZapine [Zyprexa Zydis] 20 mg PO HS tab.rapdis 02/15/17 [Rx] Divalproex (12 HR) [Depakote (12 HR)] 500 mg PO BID 02/25/17 [History] LORazepam [Ativan] 1 mg PO Q6H 02/25/17 [History] Sodium Chloride 1 gm PO BID 02/26/17 [History] Doxycycline 100 mg PO BID 7 Days #7 capsule 03/02/17 [Rx] Nicotine Patch [Nicoderm] 21 mg TD DAILY #30 patch.td24 03/02/17 [Rx] 3 Allergy/AdvReac Type Severity Reaction Status Date / Time No Known Drug Allergies Allergy See Verified 02/22/15 11:16 Comments Review of Systems Psychiatric: Reports: confusion, irritability, mood swings Mental Status Exam Patient orientation: Yes Person, Yes Time, Yes Place Level of alertness: Alert Patient appearance: Appropriate, Well Groomed Behavior: calm, cooperative, talkative Psychomotor activity: Normal Eye contact: Maintains Eye Contact Mood description: Euthymic/stable, Labile Affect description: congruent with mood, labile Speech pattern: Normal rate, Normal rhythm, Normal tone, Coherent Speech volume: Normal Thought process: Linear, Goal Oriented Thought content: No Suicidal ideation, No Homicidal ideation, No Overt delusions , Yes Paranoid delusion, Yes Somatic delusion, Yes Obsessive thoughts Perceptual disturbances: No Auditory hallucinations, No Visual hallucinations Attention span: Capable of Focused Attention Memory description: Grossly Intact Patient reliability: Reliable Historian Intelligence estimate: Average Judgment: Limited Insight: Partial Results - Vital Signs Vital signs: Temp Pulse Resp BP Pulse Ox 98.2 F 84 17 107/74 97 03/02/17 11:01 03/02/17 11:01 03/02/17 11:01 03/02/17 11:01 03/02/17 11:01 - Labs Labs: Laboratory Last Values WBC 6.5 K/mcL (4.3-11.1) 02/28/17 03:36 RBC 3.52 M/mcL (3.82-4.97) L 02/28/17 03:36 Hgb 10.5 g/dL (11.5-15.4) L 02/28/17 03:36 Hct 29.2 % (35.3-44.9) L 02/28/17 03:36 MCV 83.0 fL (83.0-100.0) 02/28/17 03:36 MCH 29.8 pg (28.0-33.3) 02/28/17 03:36 MCHC 36.0 g/dL (31.6-35.5) H 02/28/17 03:36 RDW 13.2 % (11.5-14.5) 02/28/17 03:36 Plt Count 175 K/mcL (140-400) 02/28/17 03:36 MPV 9.4 fL (9.4-12.4) 02/28/17 03:36 Immature Gran % 2.0 % (0-4) 02/28/17 03:36 Seg Neutrophils % 58.1 % 02/28/17 03:36 Lymphocytes % 28.8 % 02/28/17 03:36 Monocytes % 10.0 % 02/28/17 03:36 Eosinophils % 0.3 % 02/28/17 03:36 Basophils % 0.8 % 02/28/17 03:36 Neutrophils # 3.8 K/mcL (1.6-8.9) 02/28/17 03:36 Lymphocytes # 1.9 K/mcL (0.6-4.6) 02/28/17 03:36 Monocytes # 0.7 K/mcL (0.0-1.3) 02/28/17 03:36 Eosinophils # 0.0 K/mcL (0.0-0.6) 02/28/17 03:36 Basophils # 0.1 K/mcL (0.0-0.2) 02/28/17 03:36 Nucleated RBCs/100 WBC 0.1 /100 WBC (0) H 02/25/17 16:41 Immature Plt Fraction 5.0 % (1.1-6.1) 02/25/17 16:41 [place] Cells 1+ (Not Present) A 02/25/17 16:41 PT 12.1 Seconds (9.4-12.1) 02/25/17 16:41 INR 1.1 02/25/17 16:41 APTT 31.5 Seconds (26.0-36.0) 02/25/17 16:41 Sodium 129 mEq/L (136-145) L 03/01/17 03:58 Potassium 3.8 mEq/L (3.5-4.5) 03/01/17 03:58 Chloride 97 mEq/L (98-109) L 03/01/17 03:58 Carbon Dioxide 24 mEq/L (19-29) 03/01/17 03:58 BUN 7 mg/dL (7-20) 03/01/17 03:58 Creatinine 0.60 mg/dL (0.57-1.11) 03/01/17 03:58 Est GFR ( Amer) > 60 (> 60) 03/01/17 03:58 Est GFR (Non-Af Amer) > 60 (> 60) 03/01/17 03:58 BUN/Creatinine Ratio 12 (6-26) 03/01/17 03:58 Glucose 93 mg/dL (70-99) 03/01/17 03:58 POC Glucose 123 (58-89) H 02/27/17 11:54 Calculated Osmolality 266 (280-300) L 03/01/17 03:58 Lactic Acid 1.7 mmol/L (0.5-2.2) 02/25/17 16:41 Calcium 8.7 mg/dL (8.6-10.8) 03/01/17 03:58 Magnesium 1.3 mg/dL (1.6-2.6) L 02/26/17 04:14 Troponin I 0.03 ng/mL (0-0.03) 02/25/17 16:41 Urine Color Yellow (Yellow) 02/25/17 16:38 Urine Clarity Clear (Clear) 02/25/17 16:38 Urine pH 7.0 pH Units (5.0-8.0) 02/25/17 16:38 Ur Specific [place] 1.007 (1.010-1.025) L 02/25/17 16:38 Urine Protein Negative mg/dL (Neg-Trace) 02/25/17 16:38 Urine Glucose (UA) Normal mg/dL (Normal) 02/25/17 16:38 Urine Ketones Negative mg/dL (Negative) 02/25/17 16:38 Urine Blood Negative (Negative) 02/25/17 16:38 Urine Nitrite Negative (Negative) 02/25/17 16:38 Urine Bilirubin Negative (Negative) 02/25/17 16:38 Urine Urobilinogen Normal mg/dL (Normal) 02/25/17 16:38 Ur Leukocyte Esterase Moderate (Negative) H 02/25/17 16:38 Urine Microscopic RBC 0-3 per hpf (0-3) 02/25/17 16:38 Urine Microscopic WBC 3-5 per hpf (0-3) H 02/25/17 16:38 Ur Squamous Epith Cells Few per lpf (None-Few) 02/25/17 16:38 Urine Bacteria Moderate per hpf (None-Few) H 02/25/17 16:38 Ur Culture Indicated? YES (NO) A 02/25/17 16:38 Urine Osmolality 172 mOsm/kg (300-900) L 02/25/17 16:30 Urine Sodium < 20.0 mEq/L 02/25/17 16:30 Specimen Rejected Hemolyzed 02/26/17 01:53 Consult Discharge Plan - Plan Referrals: Simeon Roe MD [Non-Partnered Physician] - (patient will follow up with ECF PCP ) Ye Gibbons, ZENAIDA [Physician Ladle Watcher] - 03/07/17 8:20 am Prescriptions: Doxycycline 100 mg PO BID 7 Days #7 capsule Nicotine Patch [Nicoderm] 21 mg TD DAILY #30 patch.td24
--- NOTE | 2017-03-02 16:19 | Physician Discharge Referral ---
ExtendedCare Referral Info Provider in Charge after Transfer: PCP Institutional Level of Care: Skilled - Diagnosis (1) Hyponatremia Priority: Primary Status: Acute (2) Chronic schizophrenia Priority: Primary Status: Chronic (3) UTI (urinary tract infection) due to Enterococcus Priority: Primary Status: Acute (4) Hypertension Priority: Secondary Status: Chronic (5) Tobacco abuse Priority: Secondary Status: Chronic Prognosis: Good Aware of Diagnosis: Patient, Family Aware of Prognosis: Patient, Family - Transfer Medications Prescriptions: Doxycycline 100 mg PO BID 7 Days #7 capsule Nicotine Patch [Nicoderm] 21 mg TD DAILY #30 patch.td24 Home Medications: Metoprolol [Lopressor] 50 mg PO BID #60 tablet 03/01/15 [Rx] Calcium Carbonate [Calcium] 500 mg PO BID 02/10/17 [History] Ibuprofen [Motrin] 600 mg PO DAILY 02/10/17 [History] Nystatin POWDER [Nystop] 1 appl TP BID bottle 02/15/17 [Rx] OLANZapine [Zyprexa Zydis] 20 mg PO HS tab.rapdis 02/15/17 [Rx] Divalproex (12 HR) [Depakote (12 HR)] 500 mg PO BID 02/25/17 [History] LORazepam [Ativan] 1 mg PO Q6H 02/25/17 [History] Sodium Chloride 1 gm PO BID 02/26/17 [History] Doxycycline 100 mg PO BID 7 Days #7 capsule 03/02/17 [Rx] Nicotine Patch [Nicoderm] 21 mg TD DAILY #30 patch.td24 03/02/17 [Rx] Allergies/Adverse Reactions: 3 Allergy/AdvReac Type Severity Reaction Status Date / Time No Known Drug Allergies Allergy See Verified 02/22/15 11:16 Comments - Respiratory Orders Smoking Cessation: Smoking cessation has been advised. For more information, call the [place] Tobacco Quit Line at 6-208-SFXF-NOW. - Lab Orders Lab Orders: CBC - Ancillary Orders May use pressure relief devices daily prn - Advance Directives Code Status: Full Code - Rehabiliation Orders Rehab Orders: Evaluation for Physical Therapy - Treatments Skin tear care topically daily PRN per policy - Diet Orders Cardiac CERTIFICATION: I certify that the transfer of the above named patient to an Extended Care Facility is necessary for the continuing treatment of the diagnosis listed. The above information is true and accurate reflection of patient's current condition. Confidential - Redisclosure prohibited without a patient's written consent.
[2017-03-02] MEDS: OLANZapine 10 MG TAB.RAPDIS PO SCH (20:33)
[2017-03-03] MEDS: *HR* Heparin 5,000 UNIT/ML VIAL SQ SCH (05:06)
[2017-03-03] MEDS: *HR* LORazepam 1 MG TABLET PO SCH (05:06)
[2017-03-03] MEDS: Divalproex (12 HR) 500 MG TABLET PO SCH (07:54)
[2017-03-03] MEDS: Doxycycline 100 MG CAPSULE PO SCH (07:55)
--- NOTE | 2017-03-03 09:21 | Nephrology Progress Note ---
Date of Encounter: 03/03/17 Time of Encounter: 08:45 - Assessment and Plan (1) Hyponatremia Current Visit: Yes Status: Acute Euvolemic Hyponatremia most likely related to depakote and increased fluid intake. Sodium 129. Will continue to follow. Continue fluid restriction. Psyche consult appreciated. Subjective Interval history: Laying in bed, nursing staff in room.Tears up easily. Objective - Vital Signs Vital signs: Vital Signs Temp Pulse Resp BP Pulse Ox 03/03/17 07:08 97.6 F 68 18 106/68 99 03/03/17 04:23 97.8 F 60 16 101/68 97 03/03/17 00:01 98.2 F 75 16 106/74 99 03/02/17 20:04 98.2 F 89 16 110/78 98 03/02/17 16:31 98.0 F 79 17 128/87 100 03/02/17 11:01 98.2 F 84 17 107/74 97 Intake and Output 03/02/17 03/03/17 03/03/17 23:59 07:59 15:59 Intake Total 480 / 480 240 / 240 50 / 50 Output Total 0 / 0 Balance 480 / 480 240 / 240 50 / 50 Intake: Oral 480 / 480 240 / 240 50 / 50 Output: Urine 0 / 0 Other: Meal Dinner Percent of Meal Consumed 60% Weight 72.6 kg Patient Weight 03/03/17 23:59 Weight 72.6 kg - General Appearance General appearance: Present: well-developed, well-nourished, appears started age EENT: Present: mucous membranes moist Neck: Present: no JVD Respiratory: Present: clear Cardiology: Present: edema, regular rate, regular rhythm Additional Comments: mild Gastrointestinal: Present: normoactive bowel sounds, no tenderness Integumentary: Present: warm and dry Psychiatric: Present: cooperative - Lab 02/28/17 03:36 03/01/17 03:58 Most recent lab results Calcium 8.7 mg/dL (8.6-10.8) 03/01/17 03:58 Magnesium 1.3 mg/dL (1.6-2.6) L 02/26/17 04:14 Urine Sodium < 20.0 mEq/L 02/25/17 16:30 - VTE Documentation of Mechanical Device: Intermittent pneumatic compression device Consult Discharge Plan - Plan Referrals: Simeon Roe MD [Non-Partnered Physician] - (patient will follow up with F PCP ) Ye Gibbons, PAC [Physician Jigsawyer] - 03/07/17 8:20 am Prescriptions: Doxycycline 100 mg PO BID 7 Days #7 capsule Nicotine Patch [Nicoderm] 21 mg TD DAILY #30 patch.td24
[2017-03-03 10:36] VITALS: BP 137/92
--- NOTE | 2017-03-03 10:43 | Internal Med Progress Note ---
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 Roe, patient is doing well on her current regimen and they do not recommend stopping her Depakote Psychiatry has recommended to continue Depakote for now, will be tapered off slowly as outpatient (3) UTI (urinary tract infection) due to Enterococcus Current Visit: Yes Status: Acute Assessment and plan: Urine culture with enterococcus Has received 2 days of cefriaxoxne Change to Doxycycline po bid to complete 7 days of therapy (4) Hypertension Current Visit: Yes Status: Chronic Assessment and plan: Essential hypertension, controlled, monitor Continue Metoprolol 25mg BID Qualifiers: Hypertension type: essential hypertension Qualified Code(s): I10 - Essential (primary) hypertension (5) Tobacco abuse Current Visit: Yes Status: Chronic Assessment and plan: Counseled about cessation, nicotine patch - Time Spent With Patient 25 - 35 minutes - Subjective Interval history: Examined this morning. Patient is awake and alert. Not in any distress. Tolerating oral diet well. Denies chest pain or shortness of breath. No fever. Hemodynamically stable. Sodium level is now improved. Anticipate discharge today. Patient states she wants to go home and not to skilled nursing. Psychiatry has advised to continue Depakote for now. No other acute events or complaints. Patient has been advised. Prescription and advised to be compliant with medication. She will need to follow up with psychiatry as outpatient to slowly taper off the Depakote. - Constitutional Vitals: Temp Pulse Resp BP Pulse Ox 98.5 F 85 17 137/92 95 03/03/17 10:33 03/03/17 10:33 03/03/17 10:33 03/03/17 10:33 03/03/17 10:33 General appearance: Present: disheveled, A&O X 3, pleasant, no acute distress, answers questions appropriately - Head Head exam: Present: atraumatic - Eye Eye exam: Present: EOMI - ENT ENT exam: Present: mucous membranes moist - Respiratory Respiratory exam: Present: CTAB. Absent: rales, rhonchi, wheezes, tachypnea - Cardiovascular Cardiovascular exam: Present: RRR, +S1, +S2 - GI/Abdominal GI/Abdominal exam: Present: soft. Absent: distended, firm, guarding, tenderness - Extremities Exam Extremities exam: Present: radial pulses palpable and symmetrical. Absent: calf tenderness, cyanotic, pedal edema - Neurological Exam Neurological exam: Present: alert, oriented X3, no focal deficits. Absent: facial droop, speech deficit Internal Medicine: Result - Labs CBC & Chem 7: 02/28/17 03:36 03/01/17 03:58 - ABG Interpretation ABG results: PT/INR, D-dimer PT 12.1 Seconds (9.4-12.1) 02/25/17 16:41 - VTE Documentation of Mechanical Device: Intermittent pneumatic compression device Consult Discharge Plan - Plan Referrals: Simeon Roe MD [Non-Partnered Physician] - (patient will follow up with ECF PCP ) Ye Gibbons, PAC [Physician Joinery Machinist] - 03/07/17 8:20 am Prescriptions: Doxycycline 100 mg PO BID 7 Days #7 capsule Nicotine Patch [Nicoderm] 21 mg TD DAILY #30 [id number]
== END 2017-03-03 11:40 | disposition home health service (06) | DRG 426 ==
LOC: 2NNU 16:08 → EMEROO 16:08 → 2NNU 20:20 → 2ANU 03-01 12:55
PROVIDERS: ADMIT Internal Medicine; ATTEND Internal Medicine

== ENCOUNTER 2017-05-19 15:39 | Observation (INO) ==
[2017-05-19] MEDS ORDERED: *HR* LORazepam 2 MG/ML VIAL IVP ONE (16:04)
--- NOTE | 2017-05-19 16:07 | Emergency Department Note ---
Disposition Clinical Impression: Anxiety, Hyponatremia Medication withdrawal Qualifiers: Substance type: other psychostimulant Qualified Code(s): F15.93 - Other stimulant use, unspecified with withdrawal Chest pain Qualifiers: Chest pain type: other chest pain Qualified Code(s): R07.89 - Other chest pain ; R07.8 - Other chest pain Disposition: Admitted As Inpatient Condition: Fair Time of Disposition: 18:03 General Adult HPI - General Chief complaint: ED General Medical Stated complaint: anxiety Time Seen by Provider: 05/19/17 16:03 Source: patient, EMS Mode of arrival: EMS Limitations: no limitations Nursing Notes Reviewed: Yes Vital Signs Reviewed: Yes - History of Present Illness HPI Narrative: 61-year-old female presents for evaluation of anxiety. Patient states that she has been on Ativan chronically for approximately 20 years. Patient typically takes a milligram 4 times a day. Patient's primary care physician recently changed to Xanax. She did not states that she started Xanax 2 days ago. Patient has not had Ativan for the past 2 days. Patient states that she has been having chest pain as well as shortness of breath. Patient denies any abdominal pain. Patient states he felt nauseous. Patient states the reason she takes Ativan is anxiety. Pain Scale: 9 - Related Data Home Medications Medication Instructions Recorded Confirmed Calcium Carbonate [Calcium] 500 mg PO BID 02/10/17 05/20/17 Divalproex (12 HR) [Depakote (12 500 mg PO BID 02/25/17 05/20/17 HR)] LORazepam [Ativan] 1 mg PO Q6H PRN 02/25/17 05/20/17 ALPRAZolam [Xanax 1 MG Tablet] 1 mg PO QID PRN 05/19/17 05/20/17 Calcium Carbonate/Magnesium Ox 1 tab PO BID 05/20/17 05/20/17 [Oyster Shell Calcium-Magnes Tb] Previous Rx's Medication Instructions Recorded Metoprolol [Lopressor] 50 mg PO BID #60 tablet 03/01/15 OLANZapine [Zyprexa Zydis] 20 mg PO HS tab.rapdis 02/15/17 Allergies Allergy/AdvReac Type Severity Reaction Status Date / Time No Known Drug Allergies Allergy See Verified 02/22/15 11:16 Comments All systems ED: reviewed and negative except as stated. Constitutional: Reports: as per HPI. Denies: fever Eyes: Reports: as per HPI ENT ED: Reports: as per HPI Cardiovascular: Reports: as per HPI, chest pain Respiratory: Reports: as per HPI, dyspnea. Denies: cough Gastrointestinal: Reports: as per HPI, nausea. Denies: abdominal pain, vomiting Genitourinary: Reports: as per HPI Musculoskeletal: Reports: as per HPI Integumentary: Reports: as per HPI Neurological: Reports: as per HPI Psychiatric: Reports: as per HPI, anxiety Endocrine: Reports: as per HPI Hematological/Lymphatic: Reports: as per HPI Past Medical History - Past Medical History Medical history: Reports: CHF, COPD, hypertension Surgical history: Reports: colostomy Psychiatric history: Reports: anxiety, depression, schizophrenia, previous psychiatric hospitalization - Social History Smoking Status: Current every day smoker Smokeless Tobacco Status: No Alcohol use: Reports: none Drug use: Reports: none Physical Exam - General Limitations: no limitations General appearance: alert, in no apparent distress, anxious - Head Head exam: atraumatic, normocephalic, normal inspection - Eye Eye exam: Present: normal appearance, EOMI - ENT ENT exam: normal exam, mucous membranes moist - Neck Neck exam: Present: normal inspection - Chest Chest inspection: Present: normal inspection, symmetric chest wall rise - Respiratory Respiratory exam: Present: normal lung sounds bilaterally. Absent: respiratory distress - Cardiovascular Cardiovascular exam: Present: regular rate, normal rhythm. Absent: systolic murmur - Abdominal Exam Abdominal exam: Present: soft, Non-Tender - Extremities Exam Extremities exam: Present: normal inspection, pedal edema (2+b/l pedal edema) - Back Exam Back exam: Present: normal inspection - Neurological Exam Neurological exam: Present: alert, oriented X3 - Skin Skin exam: Present: warm, dry, intact, normal color Course Course Narrative: Patient seen and examined. Patient appears quite anxious on exam. Patient states that she does not take her Ativan. Concerns of possible Ativan withdrawal. Patient will also get EKG, chest x-ray and basic labs. Given the patient's symptoms the patient will need a troponin. Disposition pending. - Reevaluation(s) Reevaluation #1: Patient ambulated [facility] department and felt dizzy and weak. Patient will be admitted for chest pain as well as monitoring. Time: 18:03 Vital Signs Temperature 98.1 F 05/19/17 15:47 Pulse Rate 118 05/19/17 15:47 Respiratory Rate 16 05/19/17 15:47 Blood Pressure 143/98 05/19/17 15:47 O2 Sat by Pulse Oximetry 96 05/19/17 15:47 Temperature 97.8 F 05/20/17 15:23 Pulse Rate 78 05/20/17 15:23 Respiratory Rate 16 05/20/17 15:23 Blood Pressure 119/80 05/20/17 15:23 O2 Sat by Pulse Oximetry 95 05/20/17 15:23 Oxygen Delivery Oxygen Delivery Room Air Medical Decision Making - MDM Narrative Medical decision making narrative: 61-year-old female present for evaluation of chest pain as well as anxiety. Patient appears to had some anxiety withdrawal as she has been on chronically Ativan 4 mg a day for the past 20 years. She stopped taking her Ativan a couple days ago due to her doctor request and switch to Xanax. Patient felt like she was going to . Patient was complaining of chest pain as well as shortness of breath. Patient also was quite tearful. Patient had a positive review of system. Concerns about the patient's cardiopulmonary status. Patient 's lab work shows negative troponin however the patient's history is not entirely reliable with duration of symptoms. Patient's EKG shows no acute changes. Patient does have risk factors for ACS. Patient was given Ativan and noted to slightly improved. Patient also given aspirin. Patient's not complaining of any chest pain. Patient labs reveal hyponatremia likely secondary to psychiatric medications. Patient will be admitted to the hospital service for further care and monitoring. - Lab Data Lab results reviewed: Yes I reviewed the patient's lab results. Result diagrams: 05/20/17 06:05 05/20/17 06:05 Lab Results 05/19/17 05/19/17 05/19/17 Range/Units 16:27 16:27 16:27 WBC 5.9 (4.3-11.1) K/mcL RBC 5.27 H (3.82-4.97) M/mcL Hgb 15.2 (11.5-15.4) g/dL Hct 44.3 (35.3-44.9) % MCV 84.1 (83.0-100.0) fL MCH 28.8 (28.0-33.3) pg MCHC 34.3 (31.6-35.5) g/dL RDW 12.8 (11.5-14.5) % Plt Count 139 L (140-400) K/mcL MPV 10.2 (9.4-12.4) fL Immature Gran % 0.5 (0-4) % Seg Neutrophils % 57.7 % Lymphocytes % 33.9 % Monocytes % 7.4 % Eosinophils % 0.2 % Basophils % 0.3 % Neutrophils # 3.4 (1.6-8.9) K/mcL Lymphocytes # 2.0 (0.6-4.6) K/mcL Monocytes # 0.4 (0.0-1.3) K/mcL Eosinophils # 0.0 (0.0-0.6) K/mcL Basophils # 0.0 (0.0-0.2) K/mcL Sodium 124 L (136-145) mEq/L Potassium 4.3 (3.5-5.1) mEq/L Chloride 95 L (98-107) mEq/L Carbon Dioxide 24 (23-29) mEq/L BUN 5 L (8-23) mg/dL Creatinine 0.57 L (0.60-1.20) mg/dL Est GFR ( Amer) > 60 (> 60) Est GFR (Non-Af Amer) > 60 (> 60) BUN/Creatinine Ratio 9 (6-26) Glucose 98 (70-105) mg/dL Calculated Osmolality 255 L (280-300) Calcium 9.4 (8.6-10.3) mg/dL Troponin I < 0.03 (< 0.04) ng/mL - Radiology Data Radiology results reviewed: Yes I reviewed the patient's radiology results. Chest X-Ray 05/19/17 16:04 IMPRESSION: No acute cardiopulmonary disease. D/ / Nahun Vanegas MD / Nahun Vanegas MD Interpreting Provider: Nahun Vanegas MD - EKG Data EKG #1 EKG attestation: Yes I reviewed and interpreted this EKG. EKG shows normal: sinus rhythm Rate: bradycardia Rhythm: NSR [place]/QRS: normal Q waves: II, III, aVF Interpretation: no acute changes S.B.Kylah - Angie Situation: Demographics Background: Presenting Complaint Assessment: Vital Signs, Course and respsone to treatment, Patient/Family Expectation Recommendation: Barrier(s) to disposition, Recommendation based on pending studies, treatments, or consults Angie Report Given to: Dr. Tammi Adams Repor Time: 18:03 Attestation Statement - Attestation Attestation: I examined this patient and my medical decision-making was reviewed with the Resident Physician. I agree with the documented findings, disposition and treatment plan as described except to the extent set forth below. 61-year-old female presents stating he has recurring episodes of chest pain that she states are exertional. She also complains of withdrawal from her medications. For the past 3 years she has been taking Ativan 1 mg, 4 times a day but was recently switched over to Xanax. Since this change was made she complains of feeling very anxious and shaky with worsening of the chest pain. No seizures or hallucinations. No fevers. No vomiting or diarrhea. No focal extremity complaints. Well-appearing female in no apparent distress but is anxious. Neck is supple, trachea midline. Chest is clear to auscultation bilateral. Chest wall is nontender. Abdomen soft, nondistended and nontender. Extremities warm and dry without rash or edema. No current tremor appreciated. She was given 1 dose of Ativan and felt better briefly. She did start to develop a little tremor while in the ED but no tachycardia or hyperthermia. However, she is on beta stefan. Continued complaining of chest pain without any explanation. Subsequently, she was admitted for further evaluation.
[2017-05-19 16:40] LABS: Basophils % 0.3 %; Eosinophils % 0.2 %; Hematocrit 44.3 % (35.3-44.9); Hemoglobin 15.2 g/dL (11.5-15.4); Immature Granulocytes % 0.5 % (0-4); Lymphocytes % 33.9 %; Mean Corpuscular HGB Conc 34.3 g/dL (31.6-35.5); Mean Corpuscular Hemoglobin 28.8 pg (28.0-33.3); Mean Corpuscular Volume 84.1 fL (83.0-100.0); Mean Platelet Volume 10.2 fL (9.4-12.4); Monocytes # 0.4 K/mcL (0.0-1.3); Monocytes % 7.4 %; Neutrophils # 3.4 K/mcL (1.6-8.9); Platelet Count 139 K/mcL (140-400); Red Blood Count 5.27 M/mcL (3.82-4.97); Red Cell Distribution Width 12.8 % (11.5-14.5); Segmented Neutrophils % 57.7 %
[2017-05-19 16:53] LABS: BUN/Creatinine Ratio 9 (6-26); Blood Urea Nitrogen 5 mg/dL (8-23); Calcium 9.4 mg/dL (8.6-10.3); Carbon Dioxide 24 mEq/L (23-29); Chloride 95 mEq/L (98-107); Glucose 98 mg/dL (70-105); Osmolality,Calculated 255 (280-300); Potassium 4.3 mEq/L (3.5-5.1); Sodium 124 mEq/L (136-145); eGFR For African Americans > 60 (> 60); eGFR For Non-African Americans > 60 (> 60)
[2017-05-19] MEDS ORDERED: Aspirin 81 MG TAB.CHEW PO ONE (18:02)
[2017-05-19] MEDS ORDERED: Naloxone 0.4 MG/ML INJ IVP PRN (20:30)
--- NOTE | 2017-05-19 21:01 | Internal Med History&Physical ---
<Richy Weber - Last Filed: 05/19/17 21:54> Date of Encounter: 05/19/17 Time of Encounter: 20:53 Assessment and Plan (1) Chest tightness or pressure Current visit: Yes Status: Acute Chest pressure or thightness likely d/t anxiety. She reports chest pressure with radiation to mid-back. Troponin negative, CXR with no acute process. She is anxious appearing. She is bradycardic but is on a BB and this is likely the cause. She reports that she has been taking ativan for the last 20 years at a dose of 1mg four times daily, but she was recently switched by her PCP to Xanax 1mg BID. Per her presentation and current negative troponin this appears to be related to anxiety more a coronary event. However, I will continue to r/o ACS -trend troponins -continuous telemetry and Spo2 monitoring -CBCD, and BMP in the am -lipid panel in the morning -Heparin 5000 units SC BID -TTE -NPO after midnight -nuclear stress in the am (2) Anxiety Current visit: Yes Status: Acute Her anxiety appears to be related to medication withdrawal. She received a 1 mg dose of IV push Ativan in the emergency department and symptoms immediately improved. However within a couple of hours she reports the symptoms are returning. -Restart 1 mg Ativan PO 4 times daily, which is her prior dose -Stop Xanax (3) Medication withdrawal Current visit: Yes Status: Acute The patient was recently changed from 1 mg Ativan 4 times a day to 1 mg of Xanax 2 times a day. Since this change she has noticed an increase in chest pressure and anxiety. I believe she is having medication withdrawal thus resulting in her current clinical presentation. See plan above Qualifiers: Substance type: other psychostimulant Qualified Code(s): F15.93 - Other stimulant use, unspecified with withdrawal (4) Hyponatremia Current visit: Yes Status: Acute Hyponatremia most likely related to long-term Depakote use. Was seen on prior admissions with nephrology consult which stated the same. Sodium is actually improved from prior admissions. She is currently asymptomatic with the exception of being anxious. Recheck chemistry in the morning. Fluid restriction 1.5L (5) Tobacco abuse Current visit: Yes Status: Chronic Continues to smoke daily. She reports that she smokes anywhere from half a pack to one whole pack daily. She does not wish to quit at this time. Start 21 mg nicotine patch (6) DVT prophylaxis Current visit: Yes Status: Acute Heparin 5000 units subcutaneous twice a day Internal Medicine - H&P: HPI Chief complaint: ANXIETY, CHEST PRESSURE, DYSPNEA Admitted From: Home Plans for Post Hospital Care: Home History of present illness: Ms. Vazquez is a 61 year old female with a PMH of 1PPD smoker, anxiety, depression, schizophrenia. She presents to [facility] today with anxiety, chest pressure. She states that the pressure is midsternal with radiation the mid- back. She denies any increase in pressure with activity or decrease with rest. She has had a prior GA. She denies any palpitations, tachycardia, dizziness, pain with inspiration, or chest tenderness. She reports that she was recently switched to Xanax from Ativan by her new PCP. She states that she had been on Ativan greater than 20 years and was taking 1mg four times daily. She feels like her anxiety may be causing some of todays symptoms. Past Med Surg Social Fam HX - Past Medical History Medical history: CHF, COPD, hypertension Psychiatric history: anxiety, depression, schizophrenia, previous psychiatric hospitalization - Past Surgical History Surgical History: colostomy - Social History Smoking Status: Current every day smoker Smokeless Tobacco Status: No Alcohol use: none Drug use: none - Family History Mother Hx Family Endocrine Disorder: Yes (DM) Father Hx Family Neurologic Disorders: Yes (CVA) Internal Medicine - H&P: Meds RX: Metoprolol [Lopressor] 50 mg PO BID #60 tablet 03/01/15 [Rx] RX: Calcium Carbonate [Calcium] 500 mg PO BID 02/10/17 [History] RX: OLANZapine [Zyprexa Zydis] 20 mg PO HS tab.rapdis 02/15/17 [Rx] RX: Divalproex (12 HR) [Depakote (12 HR)] 500 mg PO BID 02/25/17 [History] RX: LORazepam [Ativan] 1 mg PO Q6H 02/25/17 [History] ALPRAZolam [Xanax 1 MG Tablet] 1 mg PO TID 05/19/17 [History] RX: Nystatin POWDER [Nystop] 1 appl TP BID PRN 05/19/17 [History] 3 Allergy/AdvReac Type Severity Reaction Status Date / Time No Known Drug Allergies Allergy See Verified 02/22/15 11:16 Comments All Systems PM: A 10-system review of systems was performed and is negative for pertinent findings except as documented above in the HPI. Review of systems: REVIEW OF SYSTEMS GENERAL: Negative for any nausea, vomiting, fevers, chills, or weight loss. NEUROLOGIC: Negative for any blurry vision, blind spots, double vision, facial asymmetry, dysphagia, dysarthria, hemiparesis, hemisensory deficits, vertigo, ataxia. HEENT: Negative for any head trauma, neck trauma, neck stiffness, photophobia, phonophobia, sinusitis, rhinitis. CARDIAC: Negative for paroxysmal nocturnal dyspnea, peripheral edema. Positive for chest pressure with radiation to mid back, and intermittent shortness of breath PULMONARY: Negative wheezing, COPD, or TB exposure. GASTROINTESTINAL: Negative for any abdominal pain, nausea, vomiting, bright red blood per rectum, melena. GENITOURINARY: Negative for any dysuria, hematuria, incontinence. INTEGUMENTARY: Negative for any rashes, cuts, insect bites. RHEUMATOLOGIC: Negative for any joint pains, photosensitive rashes, history of vasculitis or kidney problems. HEMATOLOGIC: Negative for any abnormal bruising, frequent infections or bleeding. - Constitutional Vitals: Temp Pulse Resp BP Pulse Ox 97.9 F 51 17 133/85 97 05/19/17 20:49 05/19/17 20:49 05/19/17 20:49 05/19/17 20:49 05/19/17 20:49 General appearance: Present: cooperative, A&O X 3, no acute distress, answers questions appropriately - Head Head exam: Present: atraumatic, normocephalic - Eye Eye exam: Present: PERRL, conjuntiva pink, sclera anicteric Pupils: Present: PERRL - Neck Neck exam general surgery: Present: supple, trachea midline. Absent: lymphadenopathy - Respiratory Respiratory exam: Present: decreased breath sounds, CTAB. Absent: accessory muscle use, chest wall tenderness, rales, respiratory distress, rhonchi, wheezes , tachypnea - Cardiovascular Cardiovascular exam: Present: bradycardia, +S1, +S2. Absent: diastolic murmur, gallop, rubs, systolic murmur - GI/Abdominal GI/Abdominal exam: Present: normal bowel sounds, soft, no peritoneal signs. Absent: distended, tenderness - Extremities Exam Extremities exam: Present: warm, radial pulses palpable and symmetrical. Absent : calf tenderness, cyanotic, pedal edema - Neurological Exam Neurological exam: Present: CN II-XII intact, oriented X3. Absent: facial droop , speech deficit - Skin Skin exam: Present: dry, intact Internal Med - H&P Results - Labs CBC & Chem 7: 05/19/17 16:27 05/19/17 16:27 - EKG Data -: EKG Interpreted by Myself EKG shows normal: sinus rhythm Rate: bradycardia - EKG Data Prior EKG available for review: yes Interpretation IM: normal EKG - Diagnostic Studies Chest x-ray Status: image reviewed by me Additional comments: no acute pulmonary process <Rachel Estrada - Last Filed: 05/20/17 03:47> Date of Encounter: 05/19/17 Internal Medicine - H&P: HPI History of present illness: Ms. Vazquez is a 61 year old female All Systems PM: A 10-system review of systems was performed and is negative for pertinent findings except as documented above in the HPI. - Constitutional Vitals: Temp Pulse Resp BP Pulse Ox 97.9 F 53 17 122/88 97 05/19/17 22:52 05/19/17 22:52 05/19/17 22:52 05/19/17 22:52 05/19/17 22:52 Internal Med - H&P Results - Labs CBC & Chem 7: 05/19/17 16:27 05/19/17 16:27 Labs: Cardiac Enzymes 05/19/17 Range/Units 21:32 Troponin I < 0.03 (< 0.04) ng/mL - Attending Attestation Patient is a 61y/o female admitted for management of chest pain and severe anxiety. Pt independently seen and examined Will monitor serial TNI, EKG, NPO after midnight for nuclear stress test in am restarted ativan for anxiety Noted to have history of hyponatremia, concern for SIAD/psychogenic polydypsia. Fluid restriction diet and closely monitor Na levels. Pt was followed by nephrology during her last hospitalization for hyponatremia and outpatient follow up was recommended. Case discussed with JORGE Weber, I agree with his documented findings, assessment, and plan except as listed above.
[2017-05-19] MEDS: *HR* LORazepam 1 MG TABLET PO SCH (21:27)
[2017-05-19] MEDS: Nicotine 21 MG PATCH.TD24 TD SCH (21:27)
[2017-05-19] MEDS: OLANZapine 10 MG TAB.RAPDIS PO SCH (21:27)
[2017-05-19] MEDS: Divalproex (12 HR) 500 MG TABLET PO SCH (21:27)
[2017-05-20] MEDS: *HR* LORazepam 1 MG TABLET PO SCH ×4 (03:09→21:36)
[2017-05-20] MEDS: *HR* Heparin 5,000 UNIT/ML VIAL SQ SCH ×2 (05:36→18:19)
[2017-05-20 06:13] LABS: Hematocrit 40.1 % (35.3-44.9); Mean Corpuscular HGB Conc 33.2 g/dL (31.6-35.5); Mean Corpuscular Hemoglobin 28.3 pg (28.0-33.3); Mean Corpuscular Volume 85.3 fL (83.0-100.0); Mean Platelet Volume 9.7 fL (9.4-12.4); Platelet Count 168 K/mcL (140-400); Red Cell Distribution Width 12.7 % (11.5-14.5)
[2017-05-20 06:15] LABS: Hemoglobin 13.3 g/dL (11.5-15.4)
[2017-05-20 06:33] LABS: BUN/Creatinine Ratio 10 (6-26); Blood Urea Nitrogen 7 mg/dL (8-23); Calcium 8.8 mg/dL (8.6-10.3); Carbon Dioxide 27 mEq/L (23-29); Chloride 96 mEq/L (98-107); Chol/HDL Ratio 4.2 (0-4.9); Glucose 83 mg/dL (70-105); Osmolality,Calculated 261 (280-300); Potassium 3.6 mEq/L (3.5-5.1); Sodium 127 mEq/L (136-145); eGFR For African Americans > 60 (> 60); eGFR For Non-African Americans > 60 (> 60)
--- NOTE | 2017-05-20 12:30 | Electrocardiograph Report ---
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
[2017-05-20] MEDS ORDERED: Regadenoson 0.4 MG/5 ML SYRINGE IVP ONE (13:10)
[2017-05-20] MEDS: Divalproex (12 HR) 500 MG TABLET PO SCH ×2 (14:27→21:36)
[2017-05-20] MEDS: Nicotine 21 MG PATCH.TD24 TD SCH (14:48)
--- NOTE | 2017-05-20 15:57 | Internal Med Progress Note ---
Date of Encounter: 05/20/17 Time of Encounter: 15:54 - Assessment and plan (1) Chest tightness or pressure Current Visit: Yes Status: Acute Assessment and plan: presented with intermittent chest tightness that radiated to right shoulder for 2 weeks. Serial troponin negative. EKG without acute ST changes. TTE with EF 60%, mild diastolic dysfunction, no wall motion abnormalities. Nuclear stress test negative for infarct or ischemia. Suspect chest tightness secondary to anxiety. No further cardiac workup indicated at this time. (2) Anxiety Current Visit: Yes Status: Acute Assessment and plan: per hx. has known anxiety; on Ativan 4 times a day which was recently changed to Xanax twice a day. Suspect chest tightness could be partly due to anxiety not being well controlled. Ativan resumed on arrival with improvement in symptoms. (3) Hyponatremia Current Visit: Yes Status: Acute Assessment and plan: Appears to have history of chronic hyponatremia. Na 124 on arrival; neurologically intact. Na improved to 127. Cont IV fluids, sodium replacement (4) Hypertension Current Visit: No Status: Chronic Assessment and plan: per hx. BP controlled. Cont home BP medication. Monitor BP and titrate PRN Qualifiers: Hypertension type: essential hypertension Qualified Code(s): I10 - Essential (primary) hypertension (5) DVT prophylaxis Current Visit: Yes Status: Acute Assessment and plan: heparin - Subjective Interval history: Seen and examined at bedside. Patient is new to me, information obtained from chart review and patient report. Patient says she feels significantly improved from when she came in yesterday. Denies chest pain on my exam but she does report intermittent chest tightness for 2 weeks that radiated to right shoulder. She thinks this is secondary to anxiety. Says her Ativan was recently stopped and changed to Xanax. No chest pain or shortness of breath on my exam. - Constitutional Vitals: Temp Pulse Resp BP Pulse Ox 97.8 F 78 16 119/80 95 05/20/17 15:23 05/20/17 15:23 05/20/17 15:23 05/20/17 15:23 05/20/17 15:23 General appearance: Present: cooperative, A&O X 3, no acute distress, answers questions appropriately - Head Head exam: Present: atraumatic, normocephalic - Eye Eye exam: Present: PERRL, conjuntiva pink, sclera anicteric Pupils: Present: PERRL - Neck Neck exam general surgery: Present: supple, trachea midline. Absent: lymphadenopathy - Respiratory Respiratory exam: Present: CTAB. Absent: accessory muscle use, rales, rhonchi, wheezes - Cardiovascular Cardiovascular exam: Present: RRR, +S1, +S2. Absent: diastolic murmur, gallop, rubs, systolic murmur - GI/Abdominal GI/Abdominal exam: Present: normal bowel sounds, soft, no peritoneal signs. Absent: distended, tenderness - Extremities Exam Extremities exam: Present: warm, radial pulses palpable and symmetrical. Absent : calf tenderness, cyanotic, pedal edema - Neurological Exam Neurological exam: Present: CN II-XII intact, oriented X3, no focal deficits. Absent: pronater drift, facial droop, speech deficit - Skin Skin exam: Present: dry, intact Internal Medicine: Result - Labs CBC & Chem 7: 05/20/17 06:05 05/20/17 06:05 Labs: Short CBC 05/20/17 Range/Units 06:05 WBC 4.5 (4.3-11.1) K/mcL Hgb 13.3 D (11.5-15.4) g/dL Hct 40.1 (35.3-44.9) % Plt Count 168 (140-400) K/mcL BMP 05/20/17 06:05 Sodium 127 L Potassium 3.6 Chloride 96 L Carbon Dioxide 27 BUN 7 L Creatinine 0.71 Glucose 83 Calcium 8.8 Cardiac Enzymes 05/19/17 05/20/17 Range/Units 21:32 06:05 Troponin I < 0.03 < 0.03 (< 0.04) ng/mL - Impressions Impressions Echocardiogram 05/20/17 21:56 Impressions: LVEF 60-65%. Normal LV chamber size and function. Mild asymmetric hypertrophy of the basal septum. Mild left ventricular diastolic dysfunction. Normal right ventricular structure and function. No evidence of pulmonary hypertension. No significant valvular dysfunction. Left Ventricular Wall Motion: Rest Echo Findings All wall segments showed normal motion. Findings: Study Quality * Technically adequate exam. ECG Findings * Normal sinus rhythm. Left Ventricle * LVEF 60-65%. * Normal LV chamber size and function. * Mild asymmetric hypertrophy of the basal septum. * Mild left ventricular diastolic dysfunction. Right Ventricle * Normal right ventricular structure and function. Left Atrium * Mildly dilated left atrium. Right Atrium * Mildly dilated right atrium. Interatrial Septum * Interatrial septum not well evaluated. Aortic Valve * Trileaflet aortic valve with normal function. * No aortic stenosis. * Trace aortic regurgitation. Mitral Valve * Normal mitral valve structure and function. * No mitral stenosis. * No mitral regurgitation. Tricuspid Valve * Normal tricuspid valve structure and function. * Trace tricuspid regurgitation. * No evidence of pulmonary hypertension. Pulmonic Valve * Pulmonic valve is not well visualized. * No pulmonic regurgitation. Aorta * Normally sized aortic root. Pericardium * The pericardium appears normal. IVC * Normal IVC dimensions and inspiratory collapse. Pulmonary Artery * Normal visualized portions of the main pulmonary artery. Consult Discharge Plan - Plan Referrals: NONE,PCP [Primary Care Provider] -
[2017-05-20] MEDS: OLANZapine 10 MG TAB.RAPDIS PO SCH (21:37)
[2017-05-21] MEDS: *HR* LORazepam 1 MG TABLET PO SCH ×3 (02:22→14:00)
[2017-05-21] MEDS: *HR* Heparin 5,000 UNIT/ML VIAL SQ SCH (06:02)
[2017-05-21] MEDS: Nicotine 21 MG PATCH.TD24 TD SCH (09:09)
[2017-05-21] MEDS: Divalproex (12 HR) 500 MG TABLET PO SCH (09:09)
[2017-05-21 10:17] LABS: BUN/Creatinine Ratio 18 (6-26); Blood Urea Nitrogen 13 mg/dL (8-23); Calcium 8.9 mg/dL (8.6-10.3); Carbon Dioxide 28 mEq/L (23-29); Chloride 99 mEq/L (98-107); Glucose 83 mg/dL (70-105); Osmolality,Calculated 269 (280-300); Sodium 130 mEq/L (136-145); eGFR For African Americans > 60 (> 60); eGFR For Non-African Americans > 60 (> 60)
[2017-05-21 12:12] VITALS: BP 121/72
--- NOTE | 2017-05-21 14:21 | Discharge Summary ---
Date of Encounter: 05/21/17 Time of Encounter: 14:21 - Discharge Diagnosis (1) Anxiety Priority: Primary Status: Acute Comments: has known anxiety; was on Ativan 4 times a day which was recently changed to Xanax twice a day. Patient reports increased anxiety with medication changes. Suspect chest tightness could be partly due to anxiety not being well controlled. Ativan resumed on arrival with improvement in symptoms. We will give 1 week Rx for Ativan; patient advised to call her psychiatrist/mental health provider on Tuesday to schedule a follow-up appointment. (2) Chest tightness or pressure Priority: Primary Status: Resolved Comments: presented with intermittent chest tightness that radiated to right shoulder for 2 weeks. Serial troponin negative. EKG without acute ST changes. TTE with EF 60%, mild diastolic dysfunction, no wall motion abnormalities. Nuclear stress test negative for infarct or ischemia. Suspect chest tightness secondary to anxiety. Chest pain free at time of discharge. No further cardiac workup indicated at this time. Cont ASA for cardioprotective measures. (3) Hyponatremia Priority: Secondary Status: Chronic Comments: Appears to have history of chronic hyponatremia. Na 124 on arrival; neurologically intact. Na improved with IV fluids, 130at discharge. Recommend repeat CMP with one week with PCP. (4) Hypertension Priority: Primary Status: Chronic Comments: per hx. BP soft/borderline. Home BB decreased with improvement and BP. Continue home BB at half dose. Recommend follow-up with PCP within one week for BP recheck Qualifiers: Hypertension type: essential hypertension Qualified Code(s): I10 - Essential (primary) hypertension - Discharge Medications Prescriptions: LORazepam [Ativan] 1 mg PO Q6H PRN #28 tablet PRN Reason: Anxiety Metoprolol [Lopressor] 25 mg PO BID #30 tablet Home Medications: Calcium Carbonate [Calcium] 500 mg PO BID 02/10/17 [History] OLANZapine [Zyprexa Zydis] 20 mg PO HS tab.rapdis 02/15/17 [Rx] Divalproex (12 HR) [Depakote (12 HR)] 500 mg PO BID 02/25/17 [History] Calcium Carbonate/Magnesium Ox [Oyster Shell Calcium-Magnes Tb] 1 tab PO BID 04/25 [History] LORazepam [Ativan] 1 mg PO Q6H PRN #28 tablet 05/21/17 [Rx] Metoprolol [Lopressor] 25 mg PO BID #30 tablet 05/21/17 [Rx] Allergies/Adverse Reactions: 3 Allergy/AdvReac Type Severity Reaction Status Date / Time No Known Drug Allergies Allergy See Verified 02/22/15 11:16 Comments Procedures/tests Complete & Pending: Procedures Performed prior 72 hours Category Date Time Status NM nic perf SPECT multi [NM] Routine Exams 05/19/17 21:57 Taken EV echocardiogram Routine Y 05/20/17 21:56 Completed SP pharm nuclear stress Routine Y 05/20/17 12:45 Completed Date of admission: 05/19/17 18:22 Primary care physician: PCP NONE Consults: 05/19/17 21:43 Consult to Certified Flight Instructor [CONS] Routine Reason for SW Consult: home care Discharging clinician: Belem Pimentel Anticipated date of discharge: 05/21/17 - Patient Status Disposition: Home, Self-Care Condition: Good Functional capacity at discharge: independent ambulation Overall status at discharge: patient is back to baseline - Discharge Instructions Instructions: Generalized Anxiety Disorder (DC), Lorazepam (By mouth), Benzodiazepine Abuse (DC), Chronic Hypertension (DC) Follow Up With: NONE,PCP [Primary Care Provider] - Additional Instructions: Please call your psychiatrist/mental health provider on Tuesday and schedule a follow-up appointment as soon as possible. Please discard the xanax you have at home. Take Ativan only as prescribed Please call your primary care physician within 24 hours for the next business day to schedule follow-up appointment. Her blood pressure medication was decreased and he should have your blood pressure checked within 1 week. - Diet and Activity Activity: increase activity as tolerated Diet: advance to your usual diet Interval History: Seen and examined at bedside. Patient says she had an uneventful night and feels better overall. Would like to go home this evening if she is able. No further chest pain or discomfort. She thinks changing her anxiety medication has helped. Says she follows with Dr. Belcher at site [facility] [place]. I personally called the office and they are closed however left a message on the voicemail asking for the office to follow-up with the patient as it is possible. Patient is requesting Rx for Ativan at discharge; will provide 1 week Rx. Patient advised to discard Xanax and only take Ativan as prescribed. Also advised to follow-up with PCP within one week for BP recheck as blood pressure medication has changed. Hospital course: See assessment and plan for hospital course - Time Spent with Patient Total time spent providing and/or coordinating discharge services: - Constitutional Vitals: Temp Pulse Resp BP Pulse Ox 98.6 F 59 15 121/72 96 05/21/17 12:09 05/21/17 12:09 05/21/17 12:09 05/21/17 12:09 05/21/17 12:09 General appearance: Present: cooperative, A&O X 3, no acute distress, answers questions appropriately - Head Head exam: Present: atraumatic, normocephalic - Eye Eye exam: Present: PERRL, conjuntiva pink, sclera anicteric Pupils: Present: PERRL - Neck Neck exam general surgery: Present: supple, trachea midline. Absent: lymphadenopathy - Respiratory Respiratory exam: Present: CTAB. Absent: accessory muscle use, rales, rhonchi, wheezes - Cardiovascular Cardiovascular exam: Present: RRR, +S1, +S2. Absent: diastolic murmur, gallop, rubs, systolic murmur - GI/Abdominal GI/Abdominal exam: Present: normal bowel sounds, soft, no peritoneal signs. Absent: distended, tenderness - Extremities Exam Extremities exam: Present: warm, radial pulses palpable and symmetrical. Absent : calf tenderness, cyanotic, pedal edema - Neurological Exam Neurological exam: Present: CN II-XII intact, oriented X3, no focal deficits. Absent: pronater drift, facial droop, speech deficit - Skin Skin exam: Present: dry, intact
== END 2017-05-21 16:48 | disposition home or self-care (01) ==
LOC: 3BNU 15:39 → EMEROO 15:39 → 3BNU 20:35
PROVIDERS: ADMIT Internal Medicine; ATTEND Registered Nurse

== ENCOUNTER 2017-07-12 12:05 | Observation (INO) ==
--- NOTE | 2017-07-12 13:21 | Emergency Department Note ---
Disposition Clinical Impression: Headache Qualifiers: Headache type: unspecified Headache chronicity pattern: acute headache Intractability: intractable Qualified Code(s): R51 - Headache Disposition: Still a Patient Forms: ED Satisfaction Letter General Adult HPI - General Chief complaint: ED Headache Stated complaint: headache x1 month Time Seen by Provider: 07/12/17 13:10 Source: patient Mode of arrival: ambulatory Limitations: no limitations Nursing Notes Reviewed: Yes Vital Signs Reviewed: Yes - History of Present Illness HPI Narrative: 61-year-old female who says she has had a headache for one month gotten progressively worse and now she is not able to ambulate effectively. States she has bilateral lower extremity weakness. Pt Subjective Complaint: Patient has had a headache for one month with progressive general weakness Onset (ago): day(s) Location: head Pain Scale: 10 Quality: aching Consistency: constant Improves with: nothing Worsens with: nothing Associated symptoms: Reports: weakness (Generalized) Treatments Prior to Arrival: none - Related Data Home Medications Medication Instructions Recorded Confirmed Calcium Carbonate [Calcium] 500 mg PO BID 02/10/17 05/20/17 Divalproex (12 HR) [Depakote (12 500 mg PO BID 02/25/17 05/20/17 HR)] Calcium Carbonate/Magnesium Ox 1 tab PO BID 05/20/17 05/20/17 [Oyster Shell Calcium-Magnes Tb] Previous Rx's Medication Instructions Recorded OLANZapine [Zyprexa Zydis] 20 mg PO HS tab.rapdis 02/15/17 LORazepam [Ativan] 1 mg PO Q6H PRN #28 tablet 05/21/17 Metoprolol [Lopressor] 25 mg PO BID #30 tablet 05/21/17 Allergies Allergy/AdvReac Type Severity Reaction Status Date / Time sodium AdvReac Vomiting Verified 07/12/17 12:20 All systems ED: reviewed and negative except as stated. Constitutional: Denies: fever, chills, weakness, weight change Eyes: Denies: eye pain, eye discharge, vision change ENT ED: Denies: ear pain, throat pain, dental pain, hearing loss, epistaxis, congestion, dysphagia Cardiovascular: Denies: chest pain, palpitations, dyspnea on exertion, edema, syncope Respiratory: Denies: cough, dyspnea, wheezes, hemoptysis, stridor Gastrointestinal: Denies: abdominal pain, nausea, vomiting, diarrhea, constipation, hematemesis, melena, hematochezia Genitourinary: Denies: dysuria, frequency, hematuria, discharge Musculoskeletal: Denies: back pain, neck pain, arthralgia, myalgia Integumentary: Denies: rash, abrasion, lesions Neurological: Reports: headache, weakness (Generalized). Denies: numbness, paresthesias, confusion, abnormal gait, vertigo Psychiatric: Denies: anxiety, depression, suicidal thoughts, homicidal thoughts , auditory hallucinations, visual hallucinations Endocrine: Denies: fatigue Hematological/Lymphatic: Denies: easy bleeding, easy bruising Allergic/Immunologic: Denies: facial swelling, urticaria Past Medical History - Past Medical History Medical history: Reports: CHF, COPD, hypertension Surgical history: Reports: colostomy Psychiatric history: Reports: anxiety, depression, schizophrenia, previous psychiatric hospitalization - Social History Smoking Status: Current every day smoker Smokeless Tobacco Status: No Alcohol use: Reports: none Drug use: Reports: none Physical Exam - General Limitations: no limitations General appearance: alert, in no apparent distress - Head Head exam: atraumatic, normocephalic, normal inspection - Eye Eye exam: Present: normal appearance, PERRL, EOMI - ENT ENT exam: normal exam, normal oropharynx, mucous membranes moist - Neck Neck exam: Present: normal inspection, full ROM, trachea midline - Chest Chest inspection: Present: normal inspection, symmetric chest wall rise - Respiratory Respiratory exam: Present: normal lung sounds bilaterally - Cardiovascular Cardiovascular exam: Present: regular rate, normal rhythm, normal heart sounds - Abdominal Exam Abdominal exam: Present: soft, Non-Tender. Absent: tenderness, distention, guarding, rebound, rigidity - Extremities Exam Extremities exam: Present: normal inspection, full ROM. Absent: tenderness, pedal edema - Expanded Lower Extremity Exam Neurovascular/Tendon exam: Present: sensory deficit (Right ring and little finger decreased sensation). Absent: motor deficit, tendon deficit Gait: not tested/not observed, unable to bear weight - Back Exam Back exam: Present: normal inspection - Neurological Exam Neurological exam: Present: alert, oriented X3, motor sensory deficit (She is not able to ambulate due to weakness in her legs bilaterally she also has numbness in her right ring and little finger) - Psychiatric Psychiatric exam: Present: normal affect - Skin Skin exam: Present: warm, dry, intact, normal color Course Vital Signs Temperature 98.9 F 07/12/17 12:16 Pulse Rate 74 07/12/17 12:16 Respiratory Rate 18 07/12/17 12:16 Blood Pressure 140/90 07/12/17 12:16 O2 Sat by Pulse Oximetry 98 07/12/17 12:16 Temperature 98.9 F 07/12/17 12:16 Pulse Rate 74 07/12/17 12:16 Respiratory Rate 18 07/12/17 12:16 Blood Pressure 140/90 07/12/17 12:16 O2 Sat by Pulse Oximetry 98 07/12/17 13:32 Oxygen Delivery Oxygen Delivery Room Air Medical Decision Making - Lab Data Result diagrams: 07/12/17 13:30 07/12/17 13:30 Lab Results 07/12/17 07/12/17 07/12/17 Range/Units 13:30 13:30 13:30 WBC 7.3 (4.3-11.1) K/mcL RBC 6.09 H (3.82-4.97) M/mcL Hgb 17.0 H (11.5-15.4) g/dL Hct 49.3 H (35.3-44.9) % MCV 81.0 L (83.0-100.0) fL MCH 27.9 L (28.0-33.3) pg MCHC 34.5 (31.6-35.5) g/dL RDW 13.3 (11.5-14.5) % Plt Count 250 (140-400) K/mcL MPV 9.7 (9.4-12.4) fL Immature Gran % 1.0 (0-4) % Seg Neutrophils % 63.6 % Lymphocytes % 27.9 % Monocytes % 6.9 % Eosinophils % 0.1 % Basophils % 0.5 % Neutrophils # 4.6 (1.6-8.9) K/mcL Lymphocytes # 2.0 (0.6-4.6) K/mcL Monocytes # 0.5 (0.0-1.3) K/mcL Eosinophils # 0.0 (0.0-0.6) K/mcL Basophils # 0.0 (0.0-0.2) K/mcL PT 10.5 (9.4-12.1) Seconds INR 1.0 APTT 36.4 H (26.0-36.0) Seconds Sodium 129 L (136-145) mEq/L Potassium 3.9 (3.5-5.1) mEq/L Chloride 97 L (98-107) mEq/L Carbon Dioxide 25 (23-29) mEq/L BUN 13 (8-23) mg/dL Creatinine 0.74 (0.60-1.20) mg/dL Est GFR ( Amer) > 60 (> 60) Est GFR (Non-Af Amer) > 60 (> 60) BUN/Creatinine Ratio 18 (6-26) Glucose 98 (70-105) mg/dL Calculated Osmolality 268 L (280-300) Calcium 9.9 (8.6-10.3) mg/dL Troponin I < 0.03 (< 0.04) ng/mL S.B.A.R. - S.B.A.R. Recommendation: Recommendation based on pending studies, treatments, or consults S.B.A.R. Report Given to: Dr Del Valle NIH Stroke Scale - Level of Consciousness LOC: Alert - LOC Questions LOC Questions: Answers both correctly - LOC Commands LOC Commands: Performs both correctly - Best Gaze Best Gaze: Normal - Visual Visual: No visual loss - Facial Palsy Facial Palsy: Normal - Motor Arms Motor Arm-Left: No drift for 10 seconds Motor Arm-Right: No drift for 10 seconds - Motor Legs Motor Leg-Left: No drift for 5 seconds Motor Leg-Right: No drift for 5 seconds - Limb Ataxia Limb Ataxia: Normal, No Ataxia - Sensory Sensory: Mild to moderate loss, "not as sharp" - Best Language Best Language: No aphasia - Dysarthria Dysarthria: Normal - Extinction and Inattention Extinction and Inattention: Normal - NIHSS Total Score NIHSS Total Score: 1
[2017-07-12 14:03] LABS: Basophils % 0.5 %; Eosinophils % 0.1 %; Hematocrit 49.3 % (35.3-44.9); Lymphocytes % 27.9 %; Mean Corpuscular HGB Conc 34.5 g/dL (31.6-35.5); Mean Corpuscular Hemoglobin 27.9 pg (28.0-33.3); Mean Platelet Volume 9.7 fL (9.4-12.4); Monocytes # 0.5 K/mcL (0.0-1.3); Monocytes % 6.9 %; Neutrophils # 4.6 K/mcL (1.6-8.9); Platelet Count 250 K/mcL (140-400); Red Blood Count 6.09 M/mcL (3.82-4.97); Red Cell Distribution Width 13.3 % (11.5-14.5); Segmented Neutrophils % 63.6 %
[2017-07-12 14:07] LABS: Prothrombin Time 10.5 Seconds (9.4-12.1)
[2017-07-12 14:10] LABS: Activated Partial Thrombo Time 36.4 Seconds (26.0-36.0)
[2017-07-12 14:17] LABS: Troponin I < 0.03 ng/mL (< 0.04)
[2017-07-12 14:20] LABS: BUN/Creatinine Ratio 18 (6-26); Blood Urea Nitrogen 13 mg/dL (8-23); Calcium 9.9 mg/dL (8.6-10.3); Carbon Dioxide 25 mEq/L (23-29); Chloride 97 mEq/L (98-107); Glucose 98 mg/dL (70-105); Osmolality,Calculated 268 (280-300); Potassium 3.9 mEq/L (3.5-5.1); Sodium 129 mEq/L (136-145); eGFR For African Americans > 60 (> 60); eGFR For Non-African Americans > 60 (> 60)
[2017-07-12 15:58] LABS: Bilirubin,Urine Negative (Negative); Blood,Urine Negative (Negative); Clarity,Urine Clear (Clear); Color,Urine Yellow (Yellow); Glucose,Urine (UA) Normal (Normal); Ketones,Urine Negative (Negative); Leukocyte Esterase,Urine Negative (Negative); Nitrite,Urine Negative (Negative); PH,Urine 7.5 pH Units (5.0-8.0); Protein,Urine Negative (Neg-Trace); Specific Gravity,Urine 1.009 (1.010-1.025); Urobilinogen,Urine Normal (Normal)
[2017-07-12] MEDS ORDERED: 0.9 % Sodium Chloride 500 ML IVC ONE (16:15)
[2017-07-12] MEDS ORDERED: Ketorolac 15 MG/ML VIAL IVP ONE (16:17)
--- NOTE | 2017-07-12 16:42 | Emergency Department Note ---
Disposition Clinical Impression: TIA (transient ischemic attack), Hyponatremia Headache Qualifiers: Headache type: unspecified Headache chronicity pattern: acute headache Intractability: intractable Qualified Code(s): R51 - Headache Disposition: Still a Patient Referrals: Ye Gibbons PAC [Primary Care Provider] - Forms: ED Satisfaction Letter Time of Disposition: 17:02 Headache HPI - General Chief Complaint: ED Headache Stated Complaint: headache x1 month Time Seen by Provider: 07/12/17 13:10 Source: patient Mode of arrival: ambulatory Limitations: no limitations Nursing Notes Reviewed: Yes Vital Signs Reviewed: Yes - History of Present Illness HPI Narrative: 61-year-old female with a history of anxiety depression schizophrenia on Depakote is for evaluation of gradually worsening headache over the past month. Patient states she feels like she has had pressure. Patient denies any visual changes. Patient states she feels she has pressure in the front of her head and in the back of her head. Patient denies any significant focal neurologic weaknesses but states she does feel weak in the knees at times. Patient denies any fevers. Patient does note that she felt nauseous yesterday. Patient did state that she left facial numbness last night that has since resolved. Also while in the waiting room she had isolated numbness of the R 3,4, 5 fingers that have since resolved. Patient states that she can ambulate and reports chronic numbness of the feet. Pain Scale: 10 - Related Data Home Medications Medication Instructions Recorded Confirmed Divalproex (12 HR) [Depakote (12 500 mg PO BID 02/25/17 07/12/17 HR)] Previous Rx's Medication Instructions Recorded OLANZapine [Zyprexa Zydis] 20 mg PO HS tab.rapdis 02/15/17 LORazepam [Ativan] 1 mg PO Q6H PRN #28 tablet 05/21/17 Metoprolol [Lopressor] 25 mg PO BID #30 tablet 05/21/17 Allergies Allergy/AdvReac Type Severity Reaction Status Date / Time sodium AdvReac Vomiting Verified 07/12/17 12:20 Constitutional: Denies: fever Cardiovascular: Denies: chest pain, palpitations Respiratory: Denies: cough, dyspnea, wheezes Gastrointestinal: Denies: abdominal pain, nausea, vomiting, diarrhea Neurological: Reports: headache, weakness (Generalized) Psychiatric: Reports: anxiety. Denies: suicidal thoughts, homicidal thoughts Headache PMH - Past Medical History Medical history: Reports: CHF, COPD, hypertension Female Surgical History: Reports: colostomy Psychiatric history: Reports: anxiety, depression, schizophrenia, previous psychiatric hospitalization - Social History Smoking Status: Current every day smoker Alcohol use: Reports: none Drug use: Reports: none Physical Exam - General Limitations: no limitations General appearance: alert, in no apparent distress - Head Head exam: atraumatic, normocephalic, normal inspection - Eye Eye exam: Present: normal appearance, PERRL, EOMI - ENT ENT exam: normal exam, mucous membranes moist - Neck Neck exam: Present: normal inspection, trachea midline - Chest Chest inspection: Present: normal inspection, symmetric chest wall rise - Respiratory Respiratory exam: Present: normal lung sounds bilaterally. Absent: respiratory distress - Cardiovascular Cardiovascular exam: Present: regular rate, normal rhythm. Absent: systolic murmur - Abdominal Exam Abdominal exam: Present: soft, Non-Tender - Extremities Exam Extremities exam: Present: normal inspection. Absent: pedal edema - Back Exam Back exam: Present: normal inspection - Neurological Exam Neurological exam: Present: alert, oriented X3, CN II-XII intact - Expanded Neurological Exam Patient oriented to: Present: person, place, time Speech: Present: fluid speech Cranial nerves: EOM function (II, III, IV, ): Normal, facial sensation (V): Normal, facial palsy (VII): Normal, spinal accessory function (XI): Normal, tongue deviation (XII): Normal Cerebellar function: finger to nose: Normal Motor strength - LUE: 5/5 Motor strength - RUE: 5/5 Motor strength - LLE: 5/5 Motor strength - RLE: 5/5 - Skin Skin exam: Present: warm, dry, intact, normal color Course Course Narrative: Patient seen and examined. Patient's workup was initiated by the prior provider. Patient reports neurologic symptoms within the last 24 hours that have since resolved. Patient also been complaining of a headache that is been intermittent and gradually worsening in the past 24 hours. Denies having a significant headache history. - Reevaluation(s) Reevaluation #1: Patient was updated on plan of care. Patient agrees to admission. Time: 17:12 Vital Signs Temperature 98.9 F 07/12/17 12:16 Pulse Rate 74 07/12/17 12:16 Respiratory Rate 18 07/12/17 12:16 Blood Pressure 140/90 07/12/17 12:16 O2 Sat by Pulse Oximetry 98 07/12/17 12:16 Temperature 98.9 F 07/12/17 12:16 Pulse Rate 77 07/12/17 16:39 Respiratory Rate 16 07/12/17 17:43 Blood Pressure 154/85 07/12/17 17:43 O2 Sat by Pulse Oximetry 98 07/12/17 16:39 Oxygen Delivery Oxygen Delivery Room Air Headache - MDM Narrative Medical decision making narrative: 61-year-old female with history of anxiety depression presents for evaluation of neurologic symptoms. Patient's been having a headache. Patient's headache is been over the past month. No significant headache or migraine history. No noteable triggers. Patient's workup is unremarkable. Patient has chronic hyponatremia likely secondary to medications. Patient was complaining of left facial numbness as well as numbness involvement of the right hand. Those symptoms have since resolved. Given the patient's comorbid status without past medical headache history patient possibly had migraine versus TIA. Patient workup should further include neurologic evaluation with advanced imaging. Patient's NIH 0. - Lab Data Lab results reviewed: Yes I reviewed the patient's lab results. Result diagrams: 07/12/17 13:30 07/12/17 13:30 Lab Results 07/12/17 07/12/17 07/12/17 Range/Units 13:30 13:30 13:30 WBC 7.3 (4.3-11.1) K/mcL RBC 6.09 H (3.82-4.97) M/mcL Hgb 17.0 H (11.5-15.4) g/dL Hct 49.3 H (35.3-44.9) % MCV 81.0 L (83.0-100.0) fL MCH 27.9 L (28.0-33.3) pg MCHC 34.5 (31.6-35.5) g/dL RDW 13.3 (11.5-14.5) % Plt Count 250 (140-400) K/mcL MPV 9.7 (9.4-12.4) fL Immature Gran % 1.0 (0-4) % Seg Neutrophils % 63.6 % Lymphocytes % 27.9 % Monocytes % 6.9 % Eosinophils % 0.1 % Basophils % 0.5 % Neutrophils # 4.6 (1.6-8.9) K/mcL Lymphocytes # 2.0 (0.6-4.6) K/mcL Monocytes # 0.5 (0.0-1.3) K/mcL Eosinophils # 0.0 (0.0-0.6) K/mcL Basophils # 0.0 (0.0-0.2) K/mcL PT 10.5 (9.4-12.1) Seconds INR 1.0 APTT 36.4 H (26.0-36.0) Seconds Sodium 129 L (136-145) mEq/L Potassium 3.9 (3.5-5.1) mEq/L Chloride 97 L (98-107) mEq/L Carbon Dioxide 25 (23-29) mEq/L BUN 13 (8-23) mg/dL Creatinine 0.74 (0.60-1.20) mg/dL Est GFR ( Amer) > 60 (> 60) Est GFR (Non-Af Amer) > 60 (> 60) BUN/Creatinine Ratio 18 (6-26) Glucose 98 (70-105) mg/dL Calculated Osmolality 268 L (280-300) Calcium 9.9 (8.6-10.3) mg/dL Troponin I < 0.03 (< 0.04) ng/mL Urine Color (Yellow) Urine Clarity (Clear) Urine pH (5.0-8.0) pH Units Ur Specific [place] (1.010-1.025) Urine Protein (Neg-Trace) mg/dL Urine Glucose (UA) (Normal) mg/dL Urine Ketones (Negative) mg/dL Urine Blood (Negative) Urine Nitrite (Negative) Urine Bilirubin (Negative) Urine Urobilinogen (Normal) mg/dL Ur Leukocyte Esterase (Negative) Ur Culture Indicated? (NO) Valproic Acid 68 (50-100) mcg/mL 07/12/17 Range/Units 15:41 WBC (4.3-11.1) K/mcL RBC (3.82-4.97) M/mcL Hgb (11.5-15.4) g/dL Hct (35.3-44.9) % MCV (83.0-100.0) fL MCH (28.0-33.3) pg MCHC (31.6-35.5) g/dL RDW (11.5-14.5) % Plt Count (140-400) K/mcL MPV (9.4-12.4) fL Immature Gran % (0-4) % Seg Neutrophils % % Lymphocytes % % Monocytes % % Eosinophils % % Basophils % % Neutrophils # (1.6-8.9) K/mcL Lymphocytes # (0.6-4.6) K/mcL Monocytes # (0.0-1.3) K/mcL Eosinophils # (0.0-0.6) K/mcL Basophils # (0.0-0.2) K/mcL PT (9.4-12.1) Seconds INR APTT (26.0-36.0) Seconds Sodium (136-145) mEq/L Potassium (3.5-5.1) mEq/L Chloride (98-107) mEq/L Carbon Dioxide (23-29) mEq/L BUN (8-23) mg/dL Creatinine (0.60-1.20) mg/dL Est GFR ( Amer) (> 60) Est GFR (Non-Af Amer) (> 60) BUN/Creatinine Ratio (6-26) Glucose (70-105) mg/dL Calculated Osmolality (280-300) Calcium (8.6-10.3) mg/dL Troponin I (< 0.04) ng/mL Urine Color Yellow (Yellow) Urine Clarity Clear (Clear) Urine pH 7.5 (5.0-8.0) pH Units Ur Specific [place] 1.009 L (1.010-1.025) Urine Protein Negative (Neg-Trace) mg/dL Urine Glucose (UA) Normal (Normal) mg/dL Urine Ketones Negative (Negative) mg/dL Urine Blood Negative (Negative) Urine Nitrite Negative (Negative) Urine Bilirubin Negative (Negative) Urine Urobilinogen Normal (Normal) mg/dL Ur Leukocyte Esterase Negative (Negative) Ur Culture Indicated? NO (NO) Valproic Acid (50-100) mcg/mL - Radiology Data Radiology results reviewed: Yes I reviewed the patient's radiology results. Chest X-Ray 07/12/17 13:18 IMPRESSION: No evidence for acute cardiopulmonary process. D/ / Shravan Chaidez MD / Shravan Chaidez MD Interpreting Provider: Shravan Chaidez MD Head CT 07/12/17 14:42 IMPRESSION: Stable CT brain with no acute intracranial abnormality. D/ / See Martin MD / See Martin MD Interpreting Provider: See Martin MD - EKG Data EKG attestation: Yes I reviewed and interpreted this EKG. EKG shows normal: sinus rhythm Rate: normal Rhythm: NSR [place]/QRS: normal Q waves: II QTc: other (419) Interpretation: no acute changes S.B.A.RSuzan - S.B.A.RSuzan Situation: Demographics Background: Presenting Complaint Assessment: Vital Signs, Course and respsone to treatment, Patient/Family Expectation Recommendation: Barrier(s) to disposition, Recommendation based on pending studies, treatments, or consults S.B.A.RSuzan Report Given to: Dr. Deni McdermottBAna Repor Time: 17:02 Attestation Statement - Attestation Attestation: I examined this patient and my medical decision-making was reviewed with the Resident Physician, Dr. Dey. I agree with the documented findings, disposition and treatment plan as described except to the extent set forth below. Patient is a 61-year-old white female who presents to the emergency department brought by family member for chronic intermittent headaches over the past month or gradually worsening in severity. Patient states there is no aggravating or relieving factors to the headaches, she denies any history of frequent or migraine-type headaches, she denies any associated visual changes with these headaches, and no focal weakness. Patient states last night was the most severe headache with throbbing in nature generalized began in the frontal and occipital areas of her head. Pain was gradual in onset. Patient denies any fevers or chills, no upper respiratory symptoms nasal congestion cough or sore throat, no chest pain pressure or heaviness, no shortness of breath, no diaphoresis abdominal pain or back pain. Patient states while in the waiting room she developed some numbness and tingling in her third fourth and fifth fingers on the right as well as left-sided facial numbness. Patient states that that has since resolved and she just has this persistent frontal headache. Patient's neurologic exam is within normal limits. I agree with patient's physical exam findings as documented. Vital signs are stable. Patient was signed out to us after initial evaluation by Dr. Valadez here in the ordered laboratory evaluation and imaging on the patient. Her imaging results and final disposition were pending at time of sign out. Patient had not been treated with anything for her headache. Patient CT scan was within normal limits she was administered aspirin for suspicion for possible TIA with associated numbness. Patient's blood pressure has been stable throughout. We added a Depakote level to her lab evaluation. His is pending. Case was discussed with the hospitalist to accepted the patient further evaluation and management of chronic headache and TIA.
[2017-07-12] MEDS ORDERED: Aspirin 81 MG TAB.CHEW PO ONE (16:50)
[2017-07-12] MEDS ORDERED: *HR* Labetalol 20 MG/4 ML SYRINGE IVP PRN (17:23)
[2017-07-12] MEDS ORDERED: Naloxone 0.4 MG/ML INJ IVP PRN (17:24)
--- NOTE | 2017-07-12 17:29 | Internal Med History&Physical ---
<Richy Weber - Last Filed: 07/12/17 18:24> Date of Encounter: 07/12/17 Time of Encounter: 17:27 Assessment and Plan (1) Hypertensive urgency Current visit: Yes Status: Acute Presents today with headache/pressure and hypertensive urgency. Prior h/o HTN. It is unclear how well it is managed. Although, she reports that she does not miss her BP medication doses. Her SBP has been as high as 190's today per my review while in the ED. -Continue home BB -Start labetalol q6HRS PRN for SBP greater than 160 -Continuous tele, and Spo2 monitoring -Continue to monitor hemodynamic status (2) Headache Current visit: Yes Status: Acute Patient is reporting a greater than one-month history of head pain/pressure. She reports that the pressure is in the front and back of her head. She denies any neurological deficits or visual changes. Additionally, she is noted to have hypertensive urgency and I believe this may be contributing to her headache but migraine is also in the differential. It is unclear how well her blood pressure is managed at home. -Acetaminophen for mild pain -Toradol for moderate pain Qualifiers: Headache type: unspecified Headache chronicity pattern: acute headache Intractability: intractable Qualified Code(s): R51 - Headache (3) TIA (transient ischemic attack) Current visit: Yes Status: Resolved It was reported that their is some concern for TIA due to intermittent numbness and tingling of the right third, fourth and fifth fingers. The patient has no other focal neurological deficits or complaints. I do not believe that this time with the lack of additional neurological deficits that she has had a TIA. Qualifiers: Transient cerebral ischemia type: unspecified Qualified Code(s): G45.9 - Transient cerebral ischemic attack, unspecified (4) Hyponatremia Current visit: Yes Status: Chronic Chronic, likely secondary to prolonged use of Depakote -Check valproate level (5) Anxiety Current visit: Yes Status: Acute Long-standing history of anxiety. Patient appears to be anxious during my examination. Additionally has history of bipolar schizophrenia. -Continue anxiolytics (6) Chronic schizophrenia Current visit: Yes Status: Chronic Long-standing history of schizophrenia -Continue Depakote and Zyprexa (7) Tobacco abuse Current visit: Yes Status: Chronic Current every day smoker. Does not wish to quit. Tobacco cessation discussed. (8) DVT prophylaxis Current visit: Yes Status: Acute EPCD's Internal Medicine - H&P: HPI Chief complaint: HTN urgency, headache/pressure, and N/T Rt 3rd, 4th, and 5th fingers Admitted From: Home Plans for Post Hospital Care: Home History of present illness: Ms. Vazquez is a 61 year old female with a PMH of CHF, COPD, HTN, anxiety, depression and bipolar schizophrenia. She presents to [facility] ED today for evaluation of persistent headache for greater than one month. She describes this pain as more of a pressure than anything. She denies any focal neurological deficits of a dizziness or any vision changes. She states that the pressures in both the front and back of her head. While in the ED she was noted to have hypertensive urgency. Additionally, she reports she had a little bit of left-sided facial numbness as well as some numbness and tingling in her right third, fourth and fifth fingers which have since resolved. She denies any fever, chills, chest pain, shortness of breath, abdominal pain, nausea, vomiting, diarrhea. Workup in the ED included chest x-ray and CT of the head which were both unremarkable. Metabolic panel essentially unremarkable with the exception of hyponatremia with a sodium of 129, however, this is chronic. Past Med Surg Social Fam HX - Past Medical History Medical history: CHF, COPD, hypertension Psychiatric history: anxiety, depression, schizophrenia, previous psychiatric hospitalization - Past Surgical History Surgical History: colostomy - Social History Smoking Status: Current every day smoker Smokeless Tobacco Status: No Alcohol use: none Drug use: none - Family History Mother Hx Family Endocrine Disorder: Yes (DM) Father Hx Family Neurologic Disorders: Yes (CVA) Internal Medicine - H&P: Meds OLANZapine [Zyprexa Zydis] 20 mg PO HS tab.rapdis 02/15/17 [Rx] Divalproex (12 HR) [Depakote (12 HR)] 500 mg PO BID 02/25/17 [History] LORazepam [Ativan] 1 mg PO Q6H PRN #28 tablet 05/21/17 [Rx] Metoprolol [Lopressor] 25 mg PO BID #30 tablet 05/21/17 [Rx] 3 Allergy/AdvReac Type Severity Reaction Status Date / Time sodium AdvReac Vomiting Verified 07/12/17 12:20 All Systems PM: A 10-system review of systems was performed and is negative for pertinent findings except as documented above in the HPI. Review of systems: REVIEW OF SYSTEMS GENERAL: Negative for any nausea, vomiting, fevers, chills, or weight loss. NEUROLOGIC: Negative for any blurry vision, blind spots, double vision, facial asymmetry, dysphagia, dysarthria, hemiparesis, hemisensory deficits, vertigo, ataxia. Positive for headache/pressure 1 month, and right third, fourth and fifth finger numbness and tingling that is intermittent. HEENT: Negative for any head trauma, neck trauma, neck stiffness, photophobia, phonophobia, sinusitis, rhinitis. CARDIAC: Negative for any chest pain, dyspnea on exertion, paroxysmal nocturnal dyspnea, peripheral edema. PULMONARY: Negative for any shortness of breath, wheezing, COPD, or TB exposure. GASTROINTESTINAL: Negative for any abdominal pain, nausea, vomiting, bright red blood per rectum, melena. GENITOURINARY: Negative for any dysuria, hematuria, incontinence. INTEGUMENTARY: Negative for any rashes, cuts, insect bites. RHEUMATOLOGIC: Negative for any joint pains, photosensitive rashes, history of vasculitis or kidney problems. HEMATOLOGIC: Negative for any abnormal bruising, frequent infections or bleeding. - Constitutional Vitals: Temp Pulse Resp BP Pulse Ox 98.9 F 77 16 156/92 98 07/12/17 12:16 07/12/17 16:39 07/12/17 16:39 07/12/17 16:57 07/12/17 16:39 General appearance: Present: mild distress, A&O X 3, answers questions appropriately - Head Head exam: Present: atraumatic, normocephalic - Neck Neck exam general surgery: Present: full ROM, normal inspection, supple, trachea midline. Absent: tenderness - Respiratory Respiratory exam: Present: CTAB. Absent: accessory muscle use, rales, rhonchi, wheezes - Cardiovascular Cardiovascular exam: Present: RRR, +S1, +S2. Absent: diastolic murmur, gallop, rubs, systolic murmur - GI/Abdominal GI/Abdominal exam: Present: normal bowel sounds, soft, no peritoneal signs. Absent: distended, tenderness - Extremities Exam Extremities exam: Present: warm, radial pulses palpable and symmetrical. Absent : calf tenderness, cyanotic, pedal edema - Neurological Exam Neurological exam: Present: alert, oriented X3, no focal deficits, strengths equal and symetr throughout. Absent: motor sensory deficit, pronater drift, facial droop, speech deficit - Psychiatric Psychiatric exam: Present: anxious - Skin Skin exam: Present: dry, intact Internal Med - H&P Results - Labs CBC & Chem 7: 07/12/17 13:30 07/12/17 13:30 Labs: Short CBC 07/12/17 Range/Units 13:30 WBC 7.3 (4.3-11.1) K/mcL Hgb 17.0 H (11.5-15.4) g/dL Hct 49.3 H (35.3-44.9) % Plt Count 250 (140-400) K/mcL Neutrophils # 4.6 (1.6-8.9) K/mcL BMP 07/12/17 13:30 Sodium 129 L Potassium 3.9 Chloride 97 L Carbon Dioxide 25 BUN 13 Creatinine 0.74 Glucose 98 Calcium 9.9 Cardiac Enzymes 07/12/17 Range/Units 13:30 Troponin I < 0.03 (< 0.04) ng/mL Urine 07/12/17 Range/Units 15:41 Urine Color Yellow (Yellow) Urine Clarity Clear (Clear) Urine pH 7.5 (5.0-8.0) pH Units Ur Specific [place] 1.009 L (1.010-1.025) Urine Protein Negative (Neg-Trace) mg/dL Urine Glucose (UA) Normal (Normal) mg/dL - EKG Data -: EKG Interpreted by Myself EKG shows normal: sinus rhythm - EKG Data Prior EKG available for review: no Interpretation IM: normal EKG EKG comments: Sinus rhythm, rate of 72 07/12/17 17:30 - Impressions ITS Impressions Chest X-Ray 07/12/17 13:18 IMPRESSION: No evidence for acute cardiopulmonary process. D/ / Shravan Chaidez MD / Shravan Chaidez MD Interpreting Provider: Shravan Chaidez MD Head CT 07/12/17 14:42 IMPRESSION: Stable CT brain with no acute intracranial abnormality. D/ / See Martin MD / See Martin MD Interpreting Provider: See Martin MD <Charla Cheema - Last Filed: 07/12/17 18:41> Date of Encounter: 07/12/17 Internal Medicine - H&P: HPI History of present illness: Ms. Vazquez is a 61 year old female All Systems PM: A 10-system review of systems was performed and is negative for pertinent findings except as documented above in the HPI. - Constitutional Vitals: Temp Pulse Resp BP Pulse Ox 98.9 F 77 16 154/85 98 07/12/17 12:16 07/12/17 16:39 07/12/17 17:43 07/12/17 17:43 07/12/17 16:39 Internal Med - H&P Results - Labs CBC & Chem 7: 07/12/17 13:30 07/12/17 13:30 - Attending Attestation I have personally performed a face to face evaluation on this patient. I have reviewed and agree with the care plan provided by PRIVATE DETECTIVE Richy Weber. History and Exam by me shows: Ms. Vazquez is a 61 year old female with a PMH of CHF, COPD, HTN, anxiety, depression and bipolar schizophrenia. She presents to [facility] ED today for evaluation of persistent headache for greater than one month. Pt denied any CP. Gen: A, A, O x 3 Chest: CTA, No wheezing Heart: S1S2+ RRR No murmurs Neuro: ACUPRESSURIST II-XII intact.. No focal deficit noticed A/p 1. Complex migraine headaches 2. Anxiety 3. Mood disorder 4. Chronic hyponatreamia - Depakote induced Cont close monitoring Cont symptomatic and supportive care
[2017-07-12] MEDS ORDERED: Ketorolac 15 MG/ML VIAL IVP PRN (17:40)
[2017-07-12] MEDS ORDERED: Acetaminophen 325 MG TABLET PO PRN (17:40)
[2017-07-12 17:51] LABS: Valproate 68 mcg/mL (50-100)
[2017-07-12] MEDS ORDERED: OLANZapine 10 MG TAB.RAPDIS PO SCH (21:00)
[2017-07-12] MEDS: Nicotine 21 MG PATCH.TD24 TD SCH (21:35)
[2017-07-12] MEDS: Divalproex (12 HR) 250 MG TABLET PO SCH (21:35)
[2017-07-12] MEDS: *HR* LORazepam 1 MG TABLET PO PRN (21:46)
[2017-07-13 06:41] LABS: Hematocrit 41.2 % (35.3-44.9); Hemoglobin 14.2 g/dL (11.5-15.4); Mean Corpuscular HGB Conc 34.5 g/dL (31.6-35.5); Mean Corpuscular Hemoglobin 28.2 pg (28.0-33.3); Mean Corpuscular Volume 81.9 fL (83.0-100.0); Platelet Count 203 K/mcL (140-400); Red Blood Count 5.03 M/mcL (3.82-4.97); Red Cell Distribution Width 13.5 % (11.5-14.5)
[2017-07-13 06:58] LABS: BUN/Creatinine Ratio 24 (6-26); Blood Urea Nitrogen 14 mg/dL (8-23); Calcium 8.9 mg/dL (8.6-10.3); Carbon Dioxide 24 mEq/L (23-29); Chloride 98 mEq/L (98-107); Glucose 89 mg/dL (70-105); Osmolality,Calculated 268 (280-300); Potassium 3.4 mEq/L (3.5-5.1); Sodium 129 mEq/L (136-145); eGFR For African Americans > 60 (> 60); eGFR For Non-African Americans > 60 (> 60)
[2017-07-13] MEDS: Divalproex (12 HR) 250 MG TABLET PO SCH (08:46)
[2017-07-13] MEDS: Nicotine 21 MG PATCH.TD24 TD SCH (08:46)
[2017-07-13] MEDS: *HR* LORazepam 1 MG TABLET PO PRN ×2 (08:51→14:46)
[2017-07-13 11:32] VITALS: BP 150/92
--- NOTE | 2017-07-13 14:46 | Discharge Summary ---
- NOTES TO OUTPATIENT PROVIDER Notes to Outpatient Provider: She is chronically hyponatremic, her sodium at her baseline Date of Encounter: 07/13/17 Time of Encounter: 14:44 - Discharge Diagnosis (1) Headache Priority: Primary Status: Chronic Comments: Multifactoral in origin. Patient reports she has had headaches on and off for over one month. She said as a pressure in the front and back of her head. It is worse when she is anxious. He has no neurological deficits or visual changes. Her blood pressure is also poorly controlled and may be contributing to this headache Start Fioricet Qualifiers: Headache type: unspecified Headache chronicity pattern: acute headache Intractability: not intractable Qualified Code(s): R51 - Headache (2) Hypertensive urgency Priority: Primary Status: Acute Comments: Patient has poorly controlled blood pressure. There is concern that she is taking her medications appropriately. Recommend f/u with PCP within week. Start Norvasc (3) Hyponatremia Priority: Primary Status: Chronic Comments: Patient's sodium level is at her baseline and is likely secondary to her Depakote use (4) TIA (transient ischemic attack) Priority: Primary Status: Resolved Comments: Patient has no numbness or tingling at this time. No other focal neurological deficits or complaints Do not believe that she has a TIA Qualifiers: Transient cerebral ischemia type: unspecified Qualified Code(s): G45.9 - Transient cerebral ischemic attack, unspecified (5) Anxiety Priority: Primary Status: Chronic Comments: Outstanding issues with anxiety. She states that she becomes very anxious at time and that costs her head to a course. She has a history of bipolar schizophrenia as well. Continue home medications Hospital course: Ms. Vazquez is a 61 year old female with headache chronic in nature the last month or 2 and some numbness and tingling in her fingers. All symptoms have abated. She still has a mild frontal headache. Instructed to follow-up with her primary care physician. She is hyponatremic but that is her normal baseline. Low potassium was replaced before discharge. She has been given as short course of Fioricet for the headache and was encouraged to follow-up with her primary care and accounting support specialist. Was determined the patient not have a TIA. She also has high anxiety and uncontrolled blood pressure which contributes to the headache as well. Discharge discussed with: patient, nurse - Time Spent with Patient Total time spent providing and/or coordinating discharge services: Less than 30 minutes - Discharge Medications Prescriptions: Acetaminophen/Butalbital/Caffe [Fioricet] 1 each PO Q12H PRN #14 tablet PRN Reason: Headache Home Medications: OLANZapine [Zyprexa Zydis] 20 mg PO HS tab.rapdis 02/15/17 [Rx] Divalproex (12 HR) [Depakote (12 HR)] 500 mg PO BID 02/25/17 [History] LORazepam [Ativan] 1 mg PO Q6H PRN #28 tablet 05/21/17 [Rx] Metoprolol [Lopressor] 25 mg PO BID #30 tablet 05/21/17 [Rx] Acetaminophen/Butalbital/Caffe [Fioricet] 1 each PO Q12H PRN #14 tablet [Rx] Allergies/Adverse Reactions: 3 Allergy/AdvReac Type Severity Reaction Status Date / Time sodium AdvReac Vomiting Verified 07/12/17 12:20 Date of admission: 07/12/17 18:20 Primary care physician: Ye Gibbons Discharging clinician: Radha Lan Anticipated date of discharge: 07/13/17 - Constitutional Vitals: Temp Pulse Resp BP Pulse Ox 99 F 68 14 150/92 96 07/13/17 11:31 07/13/17 11:31 07/13/17 11:31 07/13/17 11:31 07/13/17 11:31 General appearance: Present: cooperative, A&O X 3, pleasant, answers questions appropriately - Head Head exam: Present: atraumatic, normocephalic - Eye Eye exam: Present: PERRL, conjuntiva pink, sclera anicteric Pupils: Present: PERRL - Neck Neck exam general surgery: Present: supple, trachea midline. Absent: lymphadenopathy - Respiratory Respiratory exam: Present: CTAB. Absent: accessory muscle use, rales, rhonchi, wheezes - Cardiovascular Cardiovascular exam: Present: RRR, +S1, +S2. Absent: diastolic murmur, gallop, rubs, systolic murmur - GI/Abdominal GI/Abdominal exam: Present: normal bowel sounds, soft, no peritoneal signs. Absent: distended, tenderness - Extremities Exam Extremities exam: Present: warm, radial pulses palpable and symmetrical. Absent : calf tenderness, cyanotic, pedal edema - Neurological Exam Neurological exam: Present: CN II-XII intact, oriented X3, no focal deficits, strengths equal and symetr throughout. Absent: pronater drift, facial droop, speech deficit - Skin Skin exam: Present: dry, intact, normal color, warm - Patient Status Disposition: Home, Self-Care Condition: Good Functional capacity at discharge: independent ambulation Overall status at discharge: patient is back to baseline - Discharge Instructions Follow Up With: Ye Gibbons PAC [Primary Care Provider] - - Diet and Activity Activity: resume usual activities as tolerated Diet: advance to your usual diet
[2017-07-13] MEDS ORDERED: amLODIPine 5 MG TABLET PO SCH (15:00)
--- NOTE | 2017-07-13 19:38 | Electrocardiograph Report ---
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
== END 2017-07-13 16:30 | disposition home or self-care (01) ==
LOC: EMEROO 12:05 → 3BNU 12:05
PROVIDERS: ADMIT Nurse Practitioner; ATTEND Registered Nurse

== ENCOUNTER 2020-10-16 14:51 | Inpatient (IN) ==
[2020-10-16 16:22] LABS: Basophils % 0.5 %; Eosinophils % 0.2 %; Hematocrit 41.8 % (35.3-44.9); Hemoglobin 13.6 g/dL (11.5-15.4); Immature Granulocytes % 1.4 % (0-4); Lymphocytes # 1.3 K/mcL (0.6-4.6); Mean Corpuscular HGB Conc 32.5 g/dL (31.6-35.5); Mean Corpuscular Hemoglobin 28.7 pg (28.0-33.3); Mean Corpuscular Volume 88.2 fL (83.0-100.0); Mean Platelet Volume 9.3 fL (9.4-12.4); Monocytes # 0.8 K/mcL (0.0-1.3); Neutrophils # 4.4 K/mcL (1.6-8.9); Platelet Count 192 K/mcL (140-400); Red Blood Count 4.74 M/mcL (3.82-4.97); Red Cell Distribution Width 14.2 % (11.5-14.5); Segmented Neutrophils % 66.9 %; White Blood Count 6.6 K/mcL (4.3-11.1)
[2020-10-16 16:29] LABS: INR 1.1; Prothrombin Time 12.8 Seconds (9.4-12.1)
[2020-10-16 16:30] LABS: VBG Ionized Calcium 0.69 mmol/L (1.15-1.35)
[2020-10-16 16:44] LABS: Albumin 3.3 g/dL (3.5-5.7); Bilirubin,Direct 0.1 mg/dL (0.0-0.2); Bilirubin,Indirect 0.3 mg/dL (0.0-1.0); Bilirubin,Total 0.4 mg/dL (0.3-1.0); Globulin 3.2 g/dL (2.4-3.5); Total Protein 6.5 g/dL (6.4-8.9)
[2020-10-16 16:45] LABS: BUN/Creatinine Ratio 28 (6-26); Blood Urea Nitrogen 15 mg/dL (8-23); Calcium 9.1 mg/dL (8.6-10.3); Carbon Dioxide 26 mEq/L (23-29); Chloride 103 mEq/L (98-107); Creatine Kinase 53 Units/L (30-223); Glucose 97 mg/dL (70-105); Magnesium 1.7 mg/dL (1.6-2.6); Osmolality,Calculated 285 (280-300); Phosphorous 3.1 mg/dL (2.7-4.5); Potassium 3.3 mEq/L (3.5-5.1); Sodium 137 mEq/L (136-145); Troponin I < 0.03 ng/mL (< 0.04); eGFR For African Americans > 60 (> 60); eGFR For Non-African Americans > 60 (> 60)
[2020-10-16 16:57] LABS: Thyroid Stimulating Hormone 3.679 mcIU/mL (0.340-5.600)
[2020-10-16 18:40] LABS: Bacteria,Urine Few per hpf (None-Few); Bilirubin,Urine Negative (Negative); Blood,Urine Small (Negative); Clarity,Urine Clear (Clear); Color,Urine Yellow (Yellow); Glucose,Urine (UA) Normal (Normal); Ketones,Urine 20 mg/dL (Negative); Leukocyte Esterase,Urine Small (Negative); Mucus,Urine Few per lpf (None-Few); Nitrite,Urine Positive (Negative); Protein,Urine Negative (Neg-Trace); RBC,Urine 0-3 per hpf (0-3); Specific Gravity,Urine 1.021 (1.010-1.025); Urobilinogen,Urine Normal (Normal); WBC,Urine 15-30 per hpf (0-3)
[2020-10-16] MEDS ORDERED: cefTRIAXone 1,000 MG in Water for inj. (sterile) 10 ML IVP ONE (18:50)
[2020-10-16] MEDS ORDERED: Piperacillin/Tazobactam 3.375 GM in Water for inj. (sterile) 20 ML IVP ONE (18:51)
[2020-10-16] MEDS ORDERED: Naloxone 0.4 MG/ML INJ IVP PRN (21:50)
[2020-10-16] MEDS ORDERED: *HR* LORazepam 1 MG TABLET PO SCH (22:15)
[2020-10-16] MEDS ORDERED: Potassium Chloride Elixir 20 MEQ/15 ML UDC PO ONE (23:13)
[2020-10-16] MEDS: OLANZapine 10 MG TAB.RAPDIS PO SCH (23:35)
[2020-10-16] MEDS: Divalproex (12 HR) 500 MG TABLET PO SCH (23:35)
[2020-10-17] MEDS ORDERED: Furosemide 40 MG/4 ML VIAL IVP ONE (00:14)
[2020-10-17 02:48] LABS: Hematocrit 39.1 % (35.3-44.9); Hemoglobin 13.1 g/dL (11.5-15.4); Mean Corpuscular HGB Conc 33.5 g/dL (31.6-35.5); Mean Corpuscular Hemoglobin 29.3 pg (28.0-33.3); Mean Corpuscular Volume 87.5 fL (83.0-100.0); Mean Platelet Volume 9.7 fL (9.4-12.4); Platelet Count 187 K/mcL (140-400); Red Blood Count 4.47 M/mcL (3.82-4.97); Red Cell Distribution Width 14.3 % (11.5-14.5); White Blood Count 7.7 K/mcL (4.3-11.1)
[2020-10-17 03:09] LABS: BUN/Creatinine Ratio 25 (6-26); Blood Urea Nitrogen 15 mg/dL (8-23); Calcium 8.8 mg/dL (8.6-10.3); Carbon Dioxide 27 mEq/L (23-29); Chloride 104 mEq/L (98-107); Glucose 118 mg/dL (70-105); Osmolality,Calculated 286 (280-300); Potassium 4.3 mEq/L (3.5-5.1); Sodium 137 mEq/L (136-145); eGFR For African Americans > 60 (> 60); eGFR For Non-African Americans > 60 (> 60)
[2020-10-17] MEDS: *HR* Heparin 5,000 UNIT/ML VIAL SQ SCH ×3 (07:41→21:56)
[2020-10-17] MEDS: Divalproex (12 HR) 500 MG TABLET PO SCH ×2 (08:00→21:56)
[2020-10-17 08:44] LABS: Lactate Dehydrogenase 126 Units/L (140-271)
[2020-10-17] MEDS ORDERED: *HR* Rocuronium Bromide 50 MG/5 ML VIAL ONE (08:54)
[2020-10-17] MEDS ORDERED: Lidocaine -MPF 4% 5 ML AMPUL ONE (08:54)
[2020-10-17] MEDS ORDERED: *HR* Propofol 200 MG/20 ML VIAL IVP ONE (08:54)
[2020-10-17] MEDS ORDERED: Ondansetron 4 MG/2 ML VIAL IVP PRN (09:18)
[2020-10-17] MEDS ORDERED: Albuterol 2.5 MG/3 ML NEBULIZER IH PRN (09:18)
[2020-10-17] MEDS ORDERED: *HR* FentaNYL (PF) 100 MCG/2 ML VIAL IVP PRN (09:18)
[2020-10-17] MEDS ORDERED: Ondansetron 4 MG/2 ML VIAL ONE (09:37)
[2020-10-17] MEDS ORDERED: *HR* EPINEPHrine 1 MG/10 ML SYRINGE INTRATRACH PRN (09:57)
[2020-10-17] MEDS ORDERED: *HR* EPINEPHrine 1 MG/10 ML SYRINGE ONE (10:02)
[2020-10-17 10:25] LABS: Total Protein,Pleural Fluid 2.6 g/dL
[2020-10-17 10:47] LABS: RBC,Pleural Fluid < 2000 RBC/mcL
[2020-10-17 10:52] LABS: Appearance of Pleural Fl Clear (Clear)
[2020-10-17 11:17] LABS: C-Reactive Protein 22 mg/L (Less than 10)
[2020-10-17 11:37] LABS: Basophils,Pleural Fluid 0 %; Eosinophils,Pleural Fluid 0 %
[2020-10-17] MEDS: *HR* LORazepam 1 MG TABLET PO SCH ×2 (14:49→21:55)
[2020-10-17 15:02] LABS: Source of Body Fluid RIGHT LUNG
[2020-10-17] MEDS ORDERED: Gadolinium Contrast Agent (WT Based) IV PRN (17:30)
[2020-10-17] MEDS ORDERED: Isovue-370 500 ML BOTTLE IVP ONE (17:30)
[2020-10-17] MEDS: cefTRIAXone 1,000 MG in Water for inj. (sterile) 10 ML IVP SCH (18:19)
[2020-10-17] MEDS: Budesonide/Formoterol 160/4.5 1 PUFF INH IH SCH (20:05)
[2020-10-17 21:31] LABS: Appearance of Body Fluid Cloudy (Clear); Volume of Body Fluid 23 mL
[2020-10-17] MEDS: OLANZapine 10 MG TAB.RAPDIS PO SCH (21:56)
[2020-10-18 02:06] LABS: Hematocrit 36.4 % (35.3-44.9); Hemoglobin 11.6 g/dL (11.5-15.4); Mean Corpuscular HGB Conc 31.9 g/dL (31.6-35.5); Mean Corpuscular Hemoglobin 28.2 pg (28.0-33.3); Mean Corpuscular Volume 88.6 fL (83.0-100.0); Mean Platelet Volume 9.8 fL (9.4-12.4); Platelet Count 194 K/mcL (140-400); Red Blood Count 4.11 M/mcL (3.82-4.97); Red Cell Distribution Width 13.9 % (11.5-14.5); White Blood Count 6.4 K/mcL (4.3-11.1)
[2020-10-18 02:20] LABS: BUN/Creatinine Ratio 43 (6-26); Blood Urea Nitrogen 20 mg/dL (8-23); Calcium 8.6 mg/dL (8.6-10.3); Carbon Dioxide 30 mEq/L (23-29); Chloride 101 mEq/L (98-107); Glucose 118 mg/dL (70-105); Osmolality,Calculated 284 (280-300); Potassium 4.5 mEq/L (3.5-5.1); Sodium 135 mEq/L (136-145); eGFR For African Americans > 60 (> 60); eGFR For Non-African Americans > 60 (> 60)
[2020-10-18] MEDS: *HR* Heparin 5,000 UNIT/ML VIAL SQ SCH ×3 (06:36→22:14)
[2020-10-18] MEDS: *HR* LORazepam 1 MG TABLET PO SCH ×2 (07:57→22:14)
[2020-10-18] MEDS: Divalproex (12 HR) 500 MG TABLET PO SCH ×2 (07:57→22:14)
[2020-10-18] MEDS: Budesonide/Formoterol 160/4.5 1 PUFF INH IH SCH ×2 (10:26→20:33)
[2020-10-18] MEDS: cefTRIAXone 1,000 MG in Water for inj. (sterile) 10 ML IVP SCH (19:09)
[2020-10-18] MEDS: OLANZapine 10 MG TAB.RAPDIS PO SCH (22:14)
[2020-10-18] MEDS: Nystatin POWDER 30 GM BOTTLE TP SCH (22:17)
[2020-10-19] MEDS: *HR* Heparin 5,000 UNIT/ML VIAL SQ SCH ×3 (06:21→22:02)
[2020-10-19] MEDS: Budesonide/Formoterol 160/4.5 1 PUFF INH IH SCH ×2 (07:53→20:18)
[2020-10-19] MEDS: Divalproex (12 HR) 500 MG TABLET PO SCH ×2 (10:27→22:02)
[2020-10-19] MEDS: *HR* LORazepam 1 MG TABLET PO SCH ×2 (10:27→22:02)
[2020-10-19] MEDS: Furosemide 20 MG TABLET PO SCH (12:49)
[2020-10-19] MEDS: carvediloL 6.25 MG TABLET PO SCH (18:51)
[2020-10-19] MEDS: cefTRIAXone 1,000 MG in Water for inj. (sterile) 10 ML IVP SCH (18:52)
[2020-10-19] MEDS: Nystatin POWDER 30 GM BOTTLE TP SCH ×2 (20:19→22:03)
[2020-10-19] MEDS: OLANZapine 10 MG TAB.RAPDIS PO SCH (22:02)
[2020-10-20] MEDS: *HR* Heparin 5,000 UNIT/ML VIAL SQ SCH ×3 (06:13→19:57)
[2020-10-20] MEDS: Divalproex (12 HR) 500 MG TABLET PO SCH ×2 (07:46→19:57)
[2020-10-20] MEDS: Aspirin Enteric Coated 81 MG Tablet PO SCH (07:46)
[2020-10-20] MEDS: *HR* LORazepam 1 MG TABLET PO SCH ×2 (07:46→19:57)
[2020-10-20] MEDS: carvediloL 6.25 MG TABLET PO SCH ×2 (07:46→17:15)
[2020-10-20] MEDS: Furosemide 20 MG TABLET PO SCH (07:47)
[2020-10-20] MEDS: Nystatin POWDER 30 GM BOTTLE TP SCH ×2 (07:50→19:59)
[2020-10-20] MEDS: Budesonide/Formoterol 160/4.5 1 PUFF INH IH SCH ×2 (08:07→19:58)
[2020-10-20] MEDS: cefTRIAXone 1,000 MG in Water for inj. (sterile) 10 ML IVP SCH (17:15)
[2020-10-20] MEDS: cephALEXin 500 MG CAPSULE PO SCH (19:58)
[2020-10-20] MEDS: OLANZapine 10 MG TAB.RAPDIS PO SCH (19:58)
[2020-10-21 05:17] LABS: Hematocrit 36.5 % (35.3-44.9); Hemoglobin 12.2 g/dL (11.5-15.4); Mean Corpuscular HGB Conc 33.4 g/dL (31.6-35.5); Mean Corpuscular Volume 86.9 fL (83.0-100.0); Mean Platelet Volume 9.5 fL (9.4-12.4); Platelet Count 203 K/mcL (140-400); Red Cell Distribution Width 14.3 % (11.5-14.5); White Blood Count 7.6 K/mcL (4.3-11.1)
[2020-10-21 05:32] LABS: BUN/Creatinine Ratio 25 (6-26); Blood Urea Nitrogen 14 mg/dL (8-23); Calcium 8.7 mg/dL (8.6-10.3); Carbon Dioxide 31 mEq/L (23-29); Chloride 96 mEq/L (98-107); Glucose 124 mg/dL (70-105); Osmolality,Calculated 276 (280-300); Potassium 3.5 mEq/L (3.5-5.1); Sodium 132 mEq/L (136-145); eGFR For African Americans > 60 (> 60); eGFR For Non-African Americans > 60 (> 60)
[2020-10-21] MEDS: *HR* Heparin 5,000 UNIT/ML VIAL SQ SCH ×3 (05:33→20:07)
[2020-10-21] MEDS: Budesonide/Formoterol 160/4.5 1 PUFF INH IH SCH ×2 (07:49→22:38)
[2020-10-21] MEDS: Aspirin Enteric Coated 81 MG Tablet PO SCH (08:18)
[2020-10-21] MEDS: *HR* LORazepam 1 MG TABLET PO SCH ×2 (08:18→19:59)
[2020-10-21] MEDS: Divalproex (12 HR) 500 MG TABLET PO SCH ×2 (08:18→19:59)
[2020-10-21] MEDS: Furosemide 20 MG TABLET PO SCH (08:18)
[2020-10-21] MEDS: carvediloL 6.25 MG TABLET PO SCH ×2 (08:18→16:41)
[2020-10-21] MEDS: Nystatin POWDER 30 GM BOTTLE TP SCH ×2 (08:18→20:22)
[2020-10-21] MEDS: cephALEXin 500 MG CAPSULE PO SCH (08:18)
[2020-10-21] MEDS: 0.9 % Sodium Chloride 250 ML IVC SCH ×2 (10:37→20:00)
[2020-10-21] MEDS: Bismuth Subsalicylate 120 ML ORAL SUSPENSION PO PRN (11:21)
[2020-10-21] MEDS: Lactobacillus 1 EACH CAP.SPRINK PO SCH (12:24)
[2020-10-21] MEDS: OLANZapine 10 MG TAB.RAPDIS PO SCH (19:59)
[2020-10-22] MEDS: *HR* Heparin 5,000 UNIT/ML VIAL SQ SCH ×3 (05:22→21:33)
[2020-10-22] MEDS: 0.9 % Sodium Chloride 250 ML IVC SCH (05:22)
[2020-10-22] MEDS: Furosemide 20 MG TABLET PO SCH (07:39)
[2020-10-22] MEDS: Aspirin Enteric Coated 81 MG Tablet PO SCH (07:39)
[2020-10-22] MEDS: Lactobacillus 1 EACH CAP.SPRINK PO SCH (07:39)
[2020-10-22] MEDS: carvediloL 6.25 MG TABLET PO SCH ×2 (07:39→16:12)
[2020-10-22] MEDS: Divalproex (12 HR) 500 MG TABLET PO SCH ×2 (07:39→21:30)
[2020-10-22] MEDS: *HR* LORazepam 1 MG TABLET PO SCH ×2 (07:39→21:30)
[2020-10-22] MEDS: Nystatin POWDER 30 GM BOTTLE TP SCH ×2 (07:40→21:34)
[2020-10-22] MEDS: Budesonide/Formoterol 160/4.5 1 PUFF INH IH SCH ×2 (08:06→22:05)
[2020-10-22] MEDS: OLANZapine 10 MG TAB.RAPDIS PO SCH (21:33)
[2020-10-22] MEDS: Bismuth Subsalicylate 120 ML ORAL SUSPENSION PO PRN (22:31)
[2020-10-23 05:34] LABS: Hematocrit 37.5 % (35.3-44.9); Mean Corpuscular Hemoglobin 28.2 pg (28.0-33.3); Mean Platelet Volume 9.8 fL (9.4-12.4); Platelet Count 204 K/mcL (140-400); Red Blood Count 4.26 M/mcL (3.82-4.97); Red Cell Distribution Width 14.4 % (11.5-14.5); White Blood Count 6.9 K/mcL (4.3-11.1)
[2020-10-23] MEDS: *HR* Heparin 5,000 UNIT/ML VIAL SQ SCH ×3 (05:47→20:08)
[2020-10-23 07:22] LABS: BUN/Creatinine Ratio 29 (6-26); Blood Urea Nitrogen 16 mg/dL (8-23); Calcium 8.5 mg/dL (8.6-10.3); Carbon Dioxide 32 mEq/L (23-29); Chloride 95 mEq/L (98-107); Glucose 79 mg/dL (70-105); Osmolality,Calculated 274 (280-300); Potassium 3.8 mEq/L (3.5-5.1); Sodium 132 mEq/L (136-145); eGFR For African Americans > 60 (> 60); eGFR For Non-African Americans > 60 (> 60)
[2020-10-23] MEDS: Budesonide/Formoterol 160/4.5 1 PUFF INH IH SCH ×2 (07:28→22:30)
[2020-10-23] MEDS: Lactobacillus 1 EACH CAP.SPRINK PO SCH (07:56)
[2020-10-23] MEDS: carvediloL 6.25 MG TABLET PO SCH ×2 (07:56→15:54)
[2020-10-23] MEDS: Divalproex (12 HR) 500 MG TABLET PO SCH ×2 (07:56→20:08)
[2020-10-23] MEDS: Furosemide 20 MG TABLET PO SCH (07:56)
[2020-10-23] MEDS: *HR* LORazepam 1 MG TABLET PO SCH ×2 (07:57→20:07)
[2020-10-23] MEDS: Aspirin Enteric Coated 81 MG Tablet PO SCH (07:57)
[2020-10-23] MEDS: Nystatin POWDER 30 GM BOTTLE TP SCH ×2 (07:58→20:08)
[2020-10-23] MEDS: Bismuth Subsalicylate 120 ML ORAL SUSPENSION PO PRN (13:18)
[2020-10-23] MEDS ORDERED: Acetaminophen 325 MG TABLET PO PRN (16:21)
[2020-10-23] MEDS ORDERED: *HR* OxyCODONE Immed Rel 5 MG TABLET PO PRN (16:21)
[2020-10-23] MEDS ORDERED: *HR* HYDROcodone/Acet 5/325 mg TABLET PO PRN (16:21)
[2020-10-23] MEDS: OLANZapine 10 MG TAB.RAPDIS PO SCH (20:07)
[2020-10-24 02:17] LABS: Hematocrit 36.6 % (35.3-44.9); Hemoglobin 11.8 g/dL (11.5-15.4); Mean Corpuscular HGB Conc 32.2 g/dL (31.6-35.5); Mean Corpuscular Hemoglobin 28.5 pg (28.0-33.3); Mean Corpuscular Volume 88.4 fL (83.0-100.0); Mean Platelet Volume 9.7 fL (9.4-12.4); Platelet Count 203 K/mcL (140-400); Red Blood Count 4.14 M/mcL (3.82-4.97); Red Cell Distribution Width 14.4 % (11.5-14.5); White Blood Count 7.1 K/mcL (4.3-11.1)
[2020-10-24 02:28] LABS: BUN/Creatinine Ratio 40 (6-26); Blood Urea Nitrogen 22 mg/dL (8-23); Calcium 8.6 mg/dL (8.6-10.3); Carbon Dioxide 29 mEq/L (23-29); Chloride 96 mEq/L (98-107); Glucose 110 mg/dL (70-105); Osmolality,Calculated 278 (280-300); Potassium 3.8 mEq/L (3.5-5.1); Sodium 132 mEq/L (136-145); eGFR For African Americans > 60 (> 60); eGFR For Non-African Americans > 60 (> 60)
[2020-10-24] MEDS: *HR* Heparin 5,000 UNIT/ML VIAL SQ SCH (05:22)
[2020-10-24] MEDS: Budesonide/Formoterol 160/4.5 1 PUFF INH IH SCH (07:16)
[2020-10-24] MEDS: Aspirin Enteric Coated 81 MG Tablet PO SCH (08:19)
[2020-10-24] MEDS: carvediloL 6.25 MG TABLET PO SCH (08:19)
[2020-10-24] MEDS: Divalproex (12 HR) 500 MG TABLET PO SCH (08:19)
[2020-10-24] MEDS: *HR* LORazepam 1 MG TABLET PO SCH (08:19)
[2020-10-24] MEDS: Furosemide 20 MG TABLET PO SCH (08:19)
[2020-10-24] MEDS: Lactobacillus 1 EACH CAP.SPRINK PO SCH (08:19)
[2020-10-24] MEDS: Nystatin POWDER 30 GM BOTTLE TP SCH (08:21)
[2020-10-24 10:36] VITALS: BP 119/87
== END 2020-10-24 14:15 | DRG 136 ==
LOC: 3NENU 14:51 → EMEROOARM 14:51 → SUATTDRO 19:15 → 3NENU 20:09 → 3ANU 10-21 18:32
PROVIDERS: ADMIT Internal Medicine; ATTEND Internal Medicine